=== PATIENT | female | born 1950 | race Two or more races ===

== ENCOUNTER → 2019-05-26 | Outpatient (CLI) | payer MEDICARE ==
--- NOTE | 2019-05-26 09:54 | FL ---
EXAMINATION TYPE: FL UGI air w esophagus DATE OF EXAM: 05/26/2019 COMPARISON: NONE HISTORY: Abdominal pain and gastroesophageal reflux from 1.5 months. TECHNIQUE: A double contrast esophagram and UGI study is performed. 2.02 minutes of fluoroscopy time was utilized with 55 fluoroscopic images saved. FINDINGS: The esophagus shows slightly abnormal motility with few tertiary contractions in the distal esophagus intermittently. No evidence of stricture noted. There is a small hiatal hernia noted throughout the exam but most notably on supine images. This results in moderate to severe gastroesophageal reflux. The stomach shows normal distensibility, peristalsis, and mucosal folds. No evidence of any mass or ulcer disease. No significant gastroesophageal reflux was seen during real time performance of this study. The duodenal bulb, sweep, and proximal small bowel loops are unremarkable. IMPRESSION: 1. Small hiatal hernia with moderate to severe gastroesophageal reflux. 2. Few tertiary contractions in the distal esophagus, likely on the basis of presbyesophagus.
== END | disposition home or self-care (01) ==
LOC: RADUSWWP 08:46
PROVIDERS: ATTEND Internal Medicine
DX: K44.9 Diaphragmatic hernia without obstruction or gangrene (principal); K21.9 Gastro-esophageal reflux disease without esophagitis; K22.8 Other specified diseases of esophagus
CPT/HCPCS: 74246

== ENCOUNTER → 2019-06-09 | Day surgery (SDC) | payer MEDICARE ==
[2019-06-08 10:46] VITALS: BMI 35.2
[~2019-06-09] MED LIST: LACTATED RINGERS 1,000 ML IV SCH; LIDOCAINE 1% INJ 10MG/ML (20 ML MDV) ONE; PROPOFOL 10 MG/ML 20 ML VIAL IV ONE
[2019-06-09 07:13] VITALS: TEMP 96.8
[2019-06-09 07:23] LABS: Glucose,Whole Blood 200 mg/dL (75-99)
--- NOTE | 2019-06-09 07:53 | P.GSHP ---
History of Present Illness H&P Date: 06/09/19 Chief Complaint: GERD This is a 68-year-old female with history of GERD. Patient is known to have a hiatal hernia. She presents today for EGD. Past Medical History Past Medical History: Asthma, Diabetes Mellitus, Eye Disorder, GERD/Reflux, Hyperlipidemia, Hypertension, Pneumonia, Thyroid Disorder Additional Past Medical History / Comment(s): meniere's disease, fuch's dystrophy bilateral eyes, no current RX for asthma History of Any Multi-Drug Resistant Organisms: MRSA Date of last positivie culture/infection: approx 1999 MDRO Source:: stomach Past Surgical History: Bladder Surgery, Breast Surgery, Hysterectomy, Tonsillectomy Additional Past Surgical History / Comment(s): Breast lumpectomy (pt cannot recall laterallity), colonoscopy, bladder suspension. Cataract surgery Past Anesthesia/Blood Transfusion Reactions: No Reported Reaction, Motion Sic kness Additional Past Anesthesia/Blood Transfusion Reaction / Comment(s): hx of menieres Past Psychological History: No Psychological Hx Reported Additional Psychological History / Comment(s): . Smoking Status: Never smoker Past Alcohol Use History: None Reported Past Drug Use History: None Reported - Past Family History Father Family Medical History: Diabetes Mellitus Additional Family Medical History / Comment(s): Father of diabetic complications in his early 50s. Mother Family Medical History: Cancer Additional Family Medical History / Comment(s): Mother of breast cancer at the age of 50yrs. Medications and Allergies Home Medications Medication Instructions Recorded Confirmed Type Insulin Glargine,Hum.rec.anlog 50 unit SQ QAM 04/22/19 06/09/19 History [Lantus Solostar] Insulin Lispro [humaLOG Kwikpen] 0 unit SQ TID-W/MEALS 04/22/19 06/09/19 History Lisinopril [Zestril] 10 mg PO QAM 04/22/19 06/09/19 History Simvastatin [Zocor] 40 mg PO QAM 04/22/19 06/09/19 History Aspirin 81 mg PO DAILY #30 chew 04/23/19 06/09/19 Rx Famotidine [Pepcid] 20 mg PO BID 06/08/19 06/09/19 History Levothyroxine Sodium [Synthroid] 150 mcg PO DAILY 06/08/19 06/09/19 History Meclizine [Antivert] 25 mg PO DAILY PRN 06/08/19 06/09/19 History Metoprolol Succinate (ER) [Toprol 25 mg PO QAM 06/08/19 06/09/19 History XL] Vitamin D3 10,000 unit PO DAILY 06/08/19 06/09/19 History Allergies Allergy/AdvReac Type Severity Reaction Status Date / Time No Known Allergies Allergy Verified 06/08/19 10:38 Surgical - Exam Vital Signs Temp Pulse Resp BP Pulse Ox 96.8 F L 72 14 145/68 96 06/09/19 07:12 06/09/19 07:12 06/09/19 07:12 06/09/19 07:12 06/09/19 07:12 - General well developed, well nourished, no distress - Eyes PERRL - ENT normal pinna - Neck no masses - Respiratory normal expansion - Cardiovascular Rhythm: regular - Abdomen Abdomen: soft, non tender Results - Labs Abnormal Lab Results - Last 24 Hours (Table) 06/09/19 Range/Units 07:19 POC Glucose (mg/dL) 200 H (75-99) mg/dL Assessment and Plan Assessment: GERD. We'll perform EGD.
--- NOTE | 2019-06-09 07:58 | P.OP ---
Date of Procedure: 06/09/19 Preoperative Diagnosis: GERD Postoperative Diagnosis: Antral gastritis Hiatal hernia Esophagitis Procedure(s) Performed: EGD Anesthesia: MAC Surgeon: Rd Ayon Pathology: other (Antrum, esophagus) Condition: stable Disposition: PACU Description of Procedure: The patient's placed on the endoscopy table in the lateral position. She received IV sedation. The gastroscope placed oropharynx passed in the esophagus and into the stomach. Scope was then placed through the pylorus. The first second portion of duodenum. Normal. Scope was then brought back the antrum and this appeared mildly inflamed. A biopsies performed. The scope was then retroflexed and remainder the stomach appeared normal. The GE junction was at 38 cm. The distal esophagus appeared inflamed. There was evidence of a hiatal hernia. The proximal esophagus appeared normal. Scope was withdrawn for patient.
[2019-06-09 08:06] VITALS: RESP 16
[2019-06-09 08:32] VITALS: BP 136/92; PULSE 73
== END | disposition home or self-care (01) ==
LOC: ORWHC2ENDO 06:45
PROVIDERS: ATTEND Surgery
DX: K21.0 Gastro-esophageal reflux disease with esophagitis (principal); K29.50 Unspecified chronic gastritis without bleeding; K44.9 Diaphragmatic hernia without obstruction or gangrene; I10 Essential (primary) hypertension; J45.909 Unspecified asthma, uncomplicated; E11.9 Type 2 diabetes mellitus without complications; E78.5 Hyperlipidemia, unspecified; E07.9 Disorder of thyroid, unspecified; H81.09 Meniere's disease, unspecified ear; H18.51 Endothelial corneal dystrophy; Z86.14 Personal history of Methicillin resistant Staphylococcus aureus infection; Z98.890 Other specified postprocedural states; Z87.01 Personal history of pneumonia (recurrent); Z90.89 Acquired absence of other organs; Z90.710 Acquired absence of both cervix and uterus; Z83.3 Family history of diabetes mellitus; Z80.3 Family history of malignant neoplasm of breast; Z79.4 Long term (current) use of insulin; Z79.82 Long term (current) use of aspirin; Z79.899 Other long term (current) drug therapy; Z79.890 Hormone replacement therapy
CPT/HCPCS: 88305; 43239; J2001; J2704

== ENCOUNTER → 2019-06-11 | Outpatient (CLI) | payer MEDICARE ==
--- NOTE | 2019-06-11 11:19 | NM ---
EXAMINATION TYPE: NM hepatobiliary w CCK DATE OF EXAM: 06/11/2019 COMPARISON: NONE HISTORY: Disease of gallbladder TECHNIQUE: After the intravenous administration of 5.22 mCi Tc 99m Mebrofenin hepatobiliary scintigra phy is performed. Immediate images post injection. FINDINGS: There is satisfactory initial accumulation of tracer by the liver. The gallbladder is visualized wit hin 20 minutes. The small bowel activity is noted within 10 minutes. At one hour CCK was administer ed, patient was injected with 1.64 mcg of Kinevac, and gallbladder ejection fraction is calculated at 78 %, in the normal range. Therefore there is no scintigraphic evidence of cystic or common bile du ct obstruction to suggest acute cholecystitis or gallbladder dyskinesia. IMPRESSION: Exam is within normal limits.
== END | disposition home or self-care (01) ==
LOC: RADNMMAIN 06:59
PROVIDERS: ATTEND Surgery
DX: K82.8 Other specified diseases of gallbladder (principal)
CPT/HCPCS: 78227; A9537; J2805

== ENCOUNTER 2019-06-13 08:44 | Day surgery (SDC) | payer MEDICARE ==
[2019-06-08 10:55] VITALS: BMI 35.2
[~2019-06-13 08:44] MED LIST changes: +DEXAMETHASONE SOD PHOSPHATE 10 MG/ML 1 ML VIAL IV ONE; +HEPARIN SODIUM,PORCINE 5,000 UNIT/ML 1 ML VIAL SQ ONE; -LACTATED RINGERS 1,000 ML IV SCH; +LIDOCAINE 1% 20 ML VIAL (10MG/ML) FOR IV START INTRADERMA PRN; -LIDOCAINE 1% INJ 10MG/ML (20 ML MDV) ONE; +ONDANSETRON 4 MG/2 ML VIAL IVP ONE; -PROPOFOL 10 MG/ML 20 ML VIAL IV ONE
[2019-06-13] MEDS: LACTATED RINGERS 1,000 ML IV SCH ×2 (09:35→20:54)
[2019-06-13 09:43] LABS: Glucose,Whole Blood 163 mg/dL (75-99)
--- NOTE | 2019-06-13 09:57 | P.GSHP ---
History of Present Illness H&P Date: 06/13/19 Chief Complaint: GERD This is a 68-year-old female referred from Dr. Lott. Karen patient has had long-standing problems with reflux esophagitis. The patient underwent recent EGD is found have evidence of esophagitis. Patient has been well informed on th e procedure of laparoscopic Ethan fundoplication. The patient is aware the risk of the conversion to the open procedure, risk of injury to the stomach, liver and spleen. The patient is also a risk of recurrent GERD and dysphagia symptoms. The patient understands there is a postoperative diet of full liquids for 2 weeks after surgery. Past Medical History Past Medical History: Asthma, Diabetes Mellitus, Eye Disorder, GERD/Reflux, Hyperlipidemia, Hypertension, Pneumonia, Thyroid Disorder Additional Past Medical History / Comment(s): meniere's disease, fuch's dystrophy bilateral eyes, no current RX for asthma History of Any Multi-Drug Resistant Organisms: MRSA Date of last positivie culture/infection: approx 1999 MDRO Source:: stomach Past Surgical History: Bladder Surgery, Breast Surgery, Hysterectomy, Tonsill ectomy Additional Past Surgical History / Comment(s): Breast lumpectomy (pt cannot recall laterallity), colonoscopy, bladder suspension. Cataract surgery Past Anesthesia/Blood Transfusion Reactions: No Reported Reaction, Motion Sickness Additional Past Anesthesia/Blood Transfusion Reaction / Comment(s): hx of menieres Past Psychological History: No Psychological Hx Reported Additional Psychological History / Comment(s): . Smoking Status: Never smoker Past Alcohol Use History: None Reported Past Drug Use History: None Reported - Past Family History Father Family Medical History: Diabetes Mellitus Additional Family Medical History / Comment(s): Father of diabetic complications in his early 50s. Mother Family Medical History: Cancer Additional Family Medical History / Comment(s): Mother of breast cancer at the age of 50yrs. Medications and Allergies Home Medications Medication Instructions Recorded Confirmed Type Insulin Glargine,Hum.rec.anlog 50 unit SQ QAM 04/22/19 06/09/19 History [Lantus Solostar] Insulin Lispro [humaLOG Kwikpen] 0 unit SQ TID-W/MEALS 04/22/19 06/09/19 History Lisinopril [Zestril] 10 mg PO QAM 04/22/19 06/09/19 History Simvastatin [Zocor] 40 mg PO QAM 04/22/19 06/09/19 History Aspirin 81 mg PO DAILY #30 chew 04/23/19 06/09/19 Rx Famotidine [Pepcid] 20 mg PO BID 06/08/19 06/09/19 History Levothyroxine Sodium [Synthroid] 150 mcg PO DAILY 06/08/19 06/09/19 History Meclizine [Antivert] 25 mg PO DAILY PRN 06/08/19 06/09/19 History Metoprolol Succinate (ER) [Toprol 25 mg PO QAM 06/08/19 06/09/19 History XL] Vitamin D3 10,000 unit PO DAILY 06/08/19 06/09/19 History Allergies Allergy/AdvReac Type Severity Reaction Status Date / Time No Known Allergies Allergy Verified 06/13/19 09:21 Surgical - Exam Vital Signs Temp Pulse Resp BP Pulse Ox 97.7 F 69 16 149/70 99 06/13/19 09:26 06/13/19 09:26 06/13/19 09:26 06/13/19 09:26 06/13/19 09:26 - General well developed, well nourished, no distress - Eyes PERRL - ENT normal pinna - Neck no masses - Respiratory normal expansion - Cardiovascular Rhythm: regular - Abdomen Abdomen: soft, non tender Results - Labs Abnormal Lab Results - Last 24 Hours (Table) 06/13/19 Range/Units 09:28 POC Glucose (mg/dL) 163 H (75-99) mg/dL Assessment and Plan Assessment: GERD. We'll perform laparoscopic Ethan fundal plication.
[2019-06-13] MEDS ORDERED: FAMOTIDINE 20 MG/2 ML VIAL IV ONE (09:59)
[2019-06-13] MEDS ORDERED: fentaNYL (PF) 50 MCG/ML 2 ML AMP ONE (10:18)
[2019-06-13] MEDS ORDERED: KETOROLAC 30 MG/ML 1 ML VIAL ONE (10:18)
[2019-06-13] MEDS ORDERED: NEOSTIGMINE 1 MG/ML 10 ML VIAL ONE (10:18)
[2019-06-13] MEDS ORDERED: ROCURONIUM BROMIDE 10 MG/ML 10 ML VIAL IV ONE (10:18)
[2019-06-13] MEDS ORDERED: PROPOFOL 10 MG/ML 20 ML VIAL IV ONE (10:18)
[2019-06-13] MEDS ORDERED: LIDOCAINE 1% INJ 10MG/ML (20 ML MDV) ONE (10:18)
[2019-06-13] MEDS ORDERED: SUCCINYLCHOLINE CHLORIDE 100 MG/5 ML SYR IV ONE (10:18)
[2019-06-13] MEDS ORDERED: MIDAZOLAM 2 MG/2 ML VIAL ONE (10:18)
[2019-06-13] MEDS ORDERED: GLYCOPYRROLATE 0.2 MG/ML 2 ML VIAL ONE (10:18)
[2019-06-13] MEDS ORDERED: BUPIVACAINE (PF) 0.25% 30 ML VIAL SQ ONE (10:51)
[2019-06-13] MEDS ORDERED: LACTATED RINGERS 1,000 ML IV ONE (11:15)
--- NOTE | 2019-06-13 11:26 | P.OP ---
Date of Procedure: 06/13/19 Preoperative Diagnosis: GERD Postoperative Diagnosis: GERD Procedure(s) Performed: Laparoscopic Ethan fundoplication Anesthesia: LAURA Surgeon: Rd Ayon Estimated Blood Loss (ml): 5 Pathology: none sent Condition: stable Disposition: PACU Description of Procedure: The patient was placed on the operating table in the supine position. The patient received general anesthesia. And was placed in dorsal lithotomy position. The patient was prepped and draped in the usual sterile fashion. The skin incision sites were anesthetized with 1% local Xylocaine. The skin was incised in the left periumbilical area and then using a blade less 5 mm trocar under direct visualization panel cavity was entered. After adequate insufflation the laparoscope was then placed into the peritoneal cavity. Next a 5 mm trochars placed in the right epigastric position. Another 5 millimeter trocar the right lateral position. Another 5 millimeter trocar in the left lateral position a 5 mm trocar is placed in the left epigastric position. And then the initial 5 mm trocar was exchanged for a 10 mm trocar. The left lateral lobe liver was retracted. The hernia was seen. The crural defect was then dissected using the Harmonic scissors device. A 360 crural dissection was per formed the esophagus stomach was reduced back into the peritoneal Cavity. The crural defect was then closed using 2-0 Ethibond suture. Next the fundus of the stomach was mobilized using the Baltic scissors device. and then a 58-Samoan bougie dilator was placed oropharynx passed into the esophagus and stomach the fundal plication wrap was then performed by grasping the fundus posteriorly and bringing it around the esophagus and stomach fundoplication was then performed using 2-0 Ethibond suture. Care was taken that the fundal location rested over top of the intra-abdominal esophagus. There was no injury seen to the stomach or esophagus. The dilator was then withdrawn. The abdomen was irrigated there is no bleeding seen. The trochars were then withdrawn and then skin incision sites were closed using 3-0 Monocryl suture Steri-Strips are applied. Patient thought procedure well and sent to recovery room in stable condition.
[2019-06-13] MEDS ORDERED: HYDROmorphone 1 MG/ML 1 ML SYRINGE IVP PRN (11:27)
[2019-06-13] MEDS ORDERED: ONDANSETRON 4 MG/2 ML VIAL IVP PRN (11:27)
[2019-06-13 11:50] LABS: Glucose,Whole Blood 230 mg/dL (75-99)
[2019-06-13] MEDS ORDERED: D5-0.45% NACL WITH KCL 20MEQ/L 1,000 ML IV SCH (12:00)
[2019-06-13] MEDS ORDERED: ONDANSETRON 4 MG/2 ML VIAL IVP ONE (12:00)
[2019-06-13] MEDS: HYDROmorphone 0.5 MG/0.5 ML SYRINGE IVP PRN ×2 (12:03→12:22)
[2019-06-13] MEDS ORDERED: INSULIN ASPART (NovoLOG) 100 UNIT/ML VIAL SQ ONE (12:05)
[2019-06-13] MEDS: METOCLOPRAMIDE 5 MG/ML 2 ML VIAL IVP SCH ×2 (14:02→17:50)
--- NOTE | 2019-06-13 15:20 | P.CONS ---
History of Present Illness - Reason for Consult Consult date: 06/13/19 - History of Present Illness The patient is a 68-year-old female with a PMH of type 2 diabetes mellitus, hypertension, hyperlipidemia, hypothyroidism, persistent GERD who was seen as a consult postoperatively after a Ethan fundoplication. The patient reported only mild incisional abdominal pain. She also endorsed having a sore throat though denied cough, fever, chills, nausea, vomiting, chest pain, or SOB. The patient reports compliance with her meds at home including her insulin. Review of Systems Pertinent positives and negatives as discussed in HPI, a complete review of systems was performed and all other systems are negative. Past Medical History Past Medical History: Asthma, Diabetes Mellitus, Eye Disorder, GERD/Reflux, Hyperlipidemia, Hypertension, Pneumonia, Thyroid Disorder Additional Past Medical History / Comment(s): meniere's disease, fuch's dystrophy bilateral eyes, no current RX for asthma History of Any Multi-Drug Resistant Organisms: MRSA Year Discovered:: approx 1999 MDRO Source:: stomach Past Surgical History: Bladder Surgery, Breast Surgery, Hysterectomy, Tonsillectomy Additional Past Surgical History / Comment(s): Breast lumpectomy (pt cannot recall laterallity), colonoscopy, bladder suspension. Cataract surgery Past Anesthesia/Blood Transfusion Reactions: No Reported Reaction, Motion Sickness Additional Past Anesthesia/Blood Transfusion Reaction / Comm: hx of menieres Past Psychological History: No Psychological Hx Reported Additional Psychological History / Comment(s): . Smoking Status: Never smoker Past Alcohol Use History: None Reported Past Drug Use History: None Reported - Past Family History Father Family Medical History: Diabetes Mellitus Additional Family Medical History / Comment(s): Father of diabetic complications in his early 50s. Mother Family Medical History: Cancer Additional Family Medical History / Comment(s): Mother of breast cancer at the age of 50yrs. Medications and Allergies Home Medications Medication Instructions Recorded Confirmed Type Insulin Glargine,Hum.rec.anlog 50 unit SQ QAM 04/22/19 06/09/19 History [Lantus Solostar] Insulin Lispro [humaLOG Kwikpen] 0 unit SQ TID-W/MEALS 04/22/19 06/09/19 History Lisinopril [Zestril] 10 mg PO QAM 04/22/19 06/09/19 History Simvastatin [Zocor] 40 mg PO QAM 04/22/19 06/09/19 History Aspirin 81 mg PO DAILY #30 chew 04/23/19 06/09/19 Rx Famotidine [Pepcid] 20 mg PO BID 06/08/19 06/09/19 History Levothyroxine Sodium [Synthroid] 150 mcg PO DAILY 06/08/19 06/09/19 History Meclizine [Antivert] 25 mg PO DAILY PRN 06/08/19 06/09/19 History Metoprolol Succinate (ER) [Toprol 25 mg PO QAM 06/08/19 06/09/19 History XL] Vitamin D3 10,000 unit PO DAILY 06/08/19 06/09/19 History Allergies Allergy/AdvReac Type Severity Reaction Status Date / Time No Known Allergies Allergy Verified 06/13/19 09:21 Physical Exam Vitals: Vital Signs Temp Pulse Pulse Pulse Pulse Resp BP 06/13/19 14:49 06/13/19 14:35 06/13/19 14:20 06/13/19 14:05 06/13/19 13:49 06/13/19 13:34 06/13/19 13:19 06/13/19 13:04 06/13/19 12:48 97.8 F 77 16 06/13/19 12:25 60 16 06/13/19 12:10 58 L 18 06/13/19 11:55 56 L 16 06/13/19 11:40 51 L 16 06/13/19 11:28 97.1 F L 59 L 16 06/13/19 09:26 97.7 F 69 16 149/70 BP BP Pulse Ox 06/13/19 14:49 100/65 97 06/13/19 14:35 102/62 97 06/13/19 14:20 95/59 99 06/13/19 14:05 91/57 99 06/13/19 13:49 94/60 97 06/13/19 13:34 97/61 96 06/13/19 13:19 94/64 96 06/13/19 13:04 91/55 96 06/13/19 12:48 132/79 92 L 06/13/19 12:25 141/64 92 L 06/13/19 12:10 141/64 94 L 06/13/19 11:55 142/65 95 06/13/19 11:40 138/62 100 06/13/19 11:28 144/66 06/13/19 09:26 99 Intake and Output 06/13/19 06/13/19 06/13/19 06:59 14:59 22:59 Intake Total 1200 Output Total 5 Balance 1195 Intake: IV 1200 Output: Estimated Blood Loss 5 Other: Weight 84.7 kg General: non toxic, no distress, appears at stated age, obese Derm: Post-surgical abdomen, no unusual rashes/lesions no unusual ecchymoses, warm, dry Head: atraumatic, normocephalic, symmetric Eyes: EOMI, no lid lag, anicteric sclera, pupils equal round reactive to light ENT: Nose and ears atraumatic, no thrush, no pharyngeal erythema Neck: No thyromegaly, no cervical lymphadenopathy, trachea midline, supple Mouth: no lip lesion, mucus membranes moist Cardiovascular: S1S2 reg, no murmur, positive posterior tibial pulse bilateral, no edema, capillary refill less than 2 seconds Lungs: CTA bilateral, no rhonchi, no rales , no accessory muscle use Abdominal: soft, post-surgical small laproscopic incisions with overlying tape, no guarding, no appreciable organomegaly, hypoactive bowel sounds Ext: no gross muscle atrophy, muscle strength 4 out of 5 in all 4 extremities grossly, no contractures, Neuro: CN II-XI grossly intact, light touch intact all 4 extremities, finger to nose within normal limits, Psych: Alert, oriented, appropriate affect Results Labs: Abnormal Lab Results - Last 24 Hours (Table) 06/13/19 06/13/19 Range/Units 09:28 11:47 POC Glucose (mg/dL) 163 H 230 H (75-99) mg/dL Assessment and Plan Plan: Persistent GERD s/p laproscopic Ethan Fundoplication -Management including pain control as per surgery Type 2 DM -Patient takes 50 U of Lantus qam at home -Will resume 40 U qam for now -MASOUD with FS HTN, HLD -C/w home meds Hypothyroidism -C/w home dose Levothyroxine DVT proph -As per surgery
[2019-06-13 17:04] LABS: Glucose,Whole Blood 229 mg/dL (75-99)
[2019-06-13] MEDS: INSULIN ASPART (NovoLOG) 100 UNIT/ML VIAL SQ SCH (17:49)
[2019-06-13 20:22] LABS: Glucose,Whole Blood 328 mg/dL (75-99)
[2019-06-14] MEDS: METOCLOPRAMIDE 5 MG/ML 2 ML VIAL IVP SCH ×3 (01:03→11:58)
[2019-06-14 01:40] VITALS: PULSE 79
[2019-06-14] MEDS: LACTATED RINGERS 1,000 ML IV SCH ×3 (02:03→05:46)
[2019-06-14] MEDS ORDERED: LEVOTHYROXINE 75 MCG TAB PO SCH (06:30)
[2019-06-14] MEDS ORDERED: INSULIN DETEMIR (LEVEMIR) 100 UNIT/ML SYR SQ SCH (07:00)
[2019-06-14 07:04] LABS: Glucose,Whole Blood 216 mg/dL (75-99)
[2019-06-14 07:56] VITALS: BP 122/68; RESP 18; TEMP 98.4
[2019-06-14] MEDS: INSULIN ASPART (NovoLOG) 100 UNIT/ML VIAL SQ SCH ×2 (07:57→12:06)
[2019-06-14] MEDS ORDERED: LISINOPRIL 10 MG TAB PO SCH (09:00)
[2019-06-14] MEDS ORDERED: ENOXAPARIN 40 MG/0.4 ML SYRINGE SQ SCH (09:00)
[2019-06-14] MEDS ORDERED: ATORVASTATIN 20 MG TAB PO SCH (09:00)
[2019-06-14] MEDS ORDERED: ASPIRIN 81 MG PO SCH (09:00)
[2019-06-14] MEDS ORDERED: METOPROLOL SUCCINATE (ER) 25 MG TAB.ER.24H PO SCH (09:00)
--- NOTE | 2019-06-14 10:22 | P.PN ---
Subjective Progress Note Date: 06/14/19 The patient was seen and examined at the bedside on 06/14. She noted feeling well and denied any active complaints. Noted a mild sore throat. Denied abdominal pain, nausea, vomiting, fever, chills, chest pain, shortness of breath. Objective - Vital Signs Vital signs: Vital Signs Temp 98.4 F 06/14/19 07:00 Pulse 79 06/14/19 07:00 Resp 18 06/14/19 07:00 BP 122/68 06/14/19 07:00 Pulse Ox 93 L 06/14/19 07:00 Intake & Output 06/13/19 06/14/19 06/14/19 18:59 06:59 18:59 Intake Total 1400 200 Output Total 5 Balance 1395 200 Weight 84.7 kg Intake: IV 1200 Oral 200 200 Output: Estimated Blood Loss 5 Other: # Voids 1 - Exam General: Non-toxic, in no acute distress, appears stated age, obese HEENT: NC/AT, anicteric sclerae, moist conjunctiva, no lid-lag, PERRLA Cardiovascular: S1/S2 wnl, no murmurs, rubs, or gallops Lungs: Clear to auscultation, normal respiratory effort, no accessory muscle use Abdominal: Soft, postsurgical with Her scopic incisions, clean and dry, non- distended, no guarding, rebound, or rigidity Skin: Warm, dry Extremities: No edema or contractures Psychiatric: Alert and oriented to person, place and time, appropriate affect Neuro: CN II-XII grossly intact, Strength 5/5 in all 4 extremities, Speech intact, Sensation to light touch grossly intact throughout - Labs Labs: Abnormal Lab Results - Last 24 Hours (Table) 06/13/19 06/13/19 06/13/19 Range/Units 11:47 16:52 20:10 POC Glucose (mg/dL) 230 H 229 H 328 H (75-99) mg/dL 06/14/19 Range/Units 06:53 POC Glucose (mg/dL) 216 H (75-99) mg/dL Assessment and Plan Plan: Persistent GERD s/p laproscopic Ethan Fundoplication -Management including pain control as per surgery Type 2 DM -C/w Levemir 40 U qam with MASOUD and FS HTN, HLD -C/w home meds Hypothyroidism -C/w home dose Levothyroxine DVT proph -As per surgery
--- NOTE | 2019-06-14 11:08 | FL ---
EXAMINATION TYPE: FL esophagus cervic/pharynx DATE OF EXAM: 06/14/2019 LIMITED UGI-ESOPHAGRAM: CLINICAL HISTORY: Status post Barrera fundoplication surgery yesterday for hernia and pain, long time reflux-like symptoms. TECHNIQUE: Limited esophagram is performed utilizing 20 oz of Isovue-370. A total of 15 seconds of f luoroscopic time was utilized during procedure. 26 spot images saved to PACS. Comparison: Prior upper GI study May 26, 2019. FINDINGS: The patient swallowed contrast without difficulty or delay. Esophageal peristalsis and mo tility are within normal limits. There is good flow of contrast along the diaphragmatic hiatus into t he stomach, there is no evidence of contrast extravasation to suggest leak. Surgical sutures epigastr ic region are now present. No persistent hiatal hernia is seen. Patient remains asymptomatic. Small a mount of free air under right hemidiaphragm is presumed postoperative. IMPRESSION: No evidence of leak or significant obstruction status post Barrera fundoplication surgery yesterday.
[2019-06-14 11:44] LABS: Glucose,Whole Blood 171 mg/dL (75-99)
--- NOTE | 2019-06-14 12:10 | P.DS ---
Providers Date of admission: 06/13/2019 Expected date of discharge: 06/14/19 Attending physician: Rd Ayon Consults: 06/13/19 11:30 Consult Physician Routine Consulting Provider: Ana Vasquez Consult Reason/Comments: Management Do you want consulting provider notified?: Yes Primary care physician: [facility] Course: This is a 68-year-old female who underwent laparoscopic Ethan fundal plication yesterday. Patient did well postoperatively. Please see hospital chart for details. Procedures: Laparoscopic Ethan fundal plication Patient Condition at Discharge: Good Plan - Discharge Summary Discharge Rx Participant: Yes New Discharge Prescriptions: No Action Simvastatin [Zocor] 40 mg PO QAM Lisinopril [Zestril] 10 mg PO QAM Insulin Glargine,Hum.rec.anlog [Lantus Solostar] 50 unit SQ QAM Insulin Lispro [humaLOG Kwikpen] 0 unit SQ TID-W/MEALS Aspirin 81 mg PO DAILY #30 chew Levothyroxine Sodium [Synthroid] 150 mcg PO DAILY Metoprolol Succinate (ER) [Toprol XL] 25 mg PO QAM Meclizine [Antivert] 25 mg PO DAILY PRN PRN Reason: Vertigo Famotidine [Pepcid] 20 mg PO BID Vitamin D3 10,000 unit PO DAILY Discharge Medication List Insulin Glargine,Hum.rec.anlog [Lantus Solostar] 50 unit SQ QAM 04/22/19 [History] Insulin Lispro [humaLOG Kwikpen] 0 unit SQ TID-W/MEALS 04/22/19 [History] Lisinopril [Zestril] 10 mg PO QAM 04/22/19 [History] Simvastatin [Zocor] 40 mg PO QAM 04/22/19 [History] Aspirin 81 mg PO DAILY #30 chew 04/23/19 [Rx] Famotidine [Pepcid] 20 mg PO BID 06/08/19 [History] Levothyroxine Sodium [Synthroid] 150 mcg PO DAILY 06/08/19 [History] Meclizine [Antivert] 25 mg PO DAILY PRN 06/08/19 [History] Metoprolol Succinate (ER) [Toprol XL] 25 mg PO QAM 06/08/19 [History] Vitamin D3 10,000 unit PO DAILY 06/08/19 [History] Follow up Appointment(s)/Referral(s): Rd Ayon MD [STAFF PHYSICIAN] - 06/28/19 1:15 pm Patient Instructions/Handouts: *Surgery [facility] - ([facility]) Lap Ethan Fundiplication Post-Op Instructions, Fundoplication in Adults (DC) Activity/Diet/Wound Care/Special Instructions: Full liquid diet for 2 weeks, slippery foods only
== END 2019-06-14 12:45 | disposition home or self-care (01) ==
LOC: OR 08:44 → 4SSUR 11:28 → OR 06-14 12:45
PROVIDERS: ATTEND Surgery
DX: K21.0 Gastro-esophageal reflux disease with esophagitis (principal); K44.9 Diaphragmatic hernia without obstruction or gangrene; J45.909 Unspecified asthma, uncomplicated; E11.9 Type 2 diabetes mellitus without complications; H18.51 Endothelial corneal dystrophy; E78.5 Hyperlipidemia, unspecified; I10 Essential (primary) hypertension; E03.9 Hypothyroidism, unspecified; H81.09 Meniere's disease, unspecified ear; Z86.14 Personal history of Methicillin resistant Staphylococcus aureus infection; Z87.01 Personal history of pneumonia (recurrent); Z83.3 Family history of diabetes mellitus; Z80.3 Family history of malignant neoplasm of breast; Z90.710 Acquired absence of both cervix and uterus; Z98.49 Cataract extraction status, unspecified eye; Z79.82 Long term (current) use of aspirin; Z79.3 Long term (current) use of hormonal contraceptives; Z79.4 Long term (current) use of insulin; Z79.899 Other long term (current) drug therapy
CPT/HCPCS: 74210; 43281; J2250; J1644; J1100; J2710; J2765 ×2; J0690; J2405; J2001; J1650; J3010; J1885; J0330; J2704; J1170; Q9967

== ENCOUNTER → 2019-07-28 | Outpatient (CLI) | payer MEDICARE ==
--- NOTE | 2019-07-28 11:03 | CT ---
EXAMINATION TYPE: CT abdomen pelvis wo con DATE OF EXAM: 07/28/2019 COMPARISON: None HISTORY: 68-year-old female pain with urination and vaginal bleeding CT DLP: 812.4 mGycm. Automated exposure control for dose reduction was used. TECHNIQUE: Contiguous axial scanning of the abdomen and pelvis without IV contrast. Coronal and sagit alex reconstructions performed. FINDINGS: Heart normal size without pericardial effusion. Lung bases clear without pleural effusion. Postsurgical changes appear to represent Ethan fundoplication. There is a 2.4 cm fluid collection adjacent to the fundoplication, axial image 17. Liver borderline enlarged at 17.5 cm. Not noncontrast appearance of the liver, adrenal glands, right kidney, spleen otherwise show no gross abnormal abnormality. 8 mm gallstone. No abnormal gallbladder distention. Centrally located multiple cystic areas in the left kidney measuring up to 3.4 cm. Findings suggest m ultiple parapelvic cysts. The ureter itself is not dilated. Tiny calcification within the spleen suggesting prior granulomatous disease. No dilated small bowel, free fluid, or free air. Some surgical material in the right lower quadrant may relate to prior appendectomy and can be correl ated clinically. Mild overall stool burden. No pericolonic inflammatory change. Multiple pelvic phleboliths. Bladder is nondistended. Uterus surgically absent. No abnormal mass identified in the pelvis on this noncontrast study or pelvic lymphadenopathy. Suspect visualization of a small right ovary. Some bulgi ng laxity of the levator ani musculature. Bones: Mild degenerative changes of the hips and SI joints. Facet arthropathy lower lumbar spine. Tra ce grade 1 anterolisthesis at L2/L3. IMPRESSION: 1. Status post hysterectomy. No suspicious mass identified in the pelvis by noncontrast technique. 2. Status post Ethan fundoplication with an associated 2.4 cm fluid collection. This could represent fluid trapped within the wrap itself or a nonspecific postoperative fluid collection such as seroma. Clinically correlate. 3. 8 mm gallstone, prominent left-sided parapelvic cysts. 4. Mild pelvic floor relaxation.
== END | disposition home or self-care (01) ==
LOC: RADCTMAIN 09:56
PROVIDERS: ATTEND Nurse Practitioner Adult Health
DX: K80.20 Calculus of gallbladder without cholecystitis without obstruction (principal); N81.89 Other female genital prolapse; R31.9 Hematuria, unspecified; Z90.710 Acquired absence of both cervix and uterus; Z98.890 Other specified postprocedural states
CPT/HCPCS: 36415; 74176

== ENCOUNTER → 2020-10-24 | Outpatient (CLI) | payer MEDICARE ==
[2020-10-24 14:38] LABS: African American GFR (CKD) >90 (>60 ml/min/1.73 sqM); Blood Urea Nitrogen 13 mg/dL (7-17); Non-African American GFR(CKD) >90 (>60 ml/min/1.73 sqM)
--- NOTE | 2020-10-24 15:33 | CT ---
EXAMINATION TYPE: CT soft tissue neck w con DATE OF EXAM: 10/24/2020 3:07 PM COMPARISON: None HISTORY: Left sided discomfort without palpable lump. CT DLP: 647.9 mGycm Automated exposure control for dose reduction was used. CONTRAST: CT scan of the neck is performed following with IV Contrast, patient injected with 100 mL of Isovue 3 00. Axial images are obtained, coronal and sagittal reformatted images are reviewed. FINDINGS: Dental artifact limits assessment. There are changes of chronic sinusitis. Orbits are symme tric. Intracranial structures are symmetric. Base of the tongue is symmetric. Oropharynx symmetric. V ocal cords have a normal appearance. Submandibular glands and parotid glands have a normal appearance. No pathologic adenopathy. Hypertrop hic and degenerative changes of the spine. Atherosclerotic change of the vasculature including the ca rotid arteries noted. Suspect to 60% stenosis of the left ICA. IMPRESSION: 1. No acute process. 2. Suspect a 60% stenosis of the left internal carotid artery
== END | disposition home or self-care (01) ==
LOC: RADCTMAIN 13:48
PROVIDERS: ATTEND Otolaryngology
DX: M54.2 Cervicalgia (principal)
CPT/HCPCS: 82565; 84520; 70491; 36415; Q9967

== ENCOUNTER 2020-12-05 07:12 | Day surgery (SDC) | payer MEDICARE ==
[2020-12-04 11:50] VITALS: BMI 36.1
[~2020-12-05 07:12] MED LIST changes: -DEXAMETHASONE SOD PHOSPHATE 10 MG/ML 1 ML VIAL IV ONE; +DEXAMETHASONE SOD PHOSPHATE 4 MG/ML 1 ML VIAL IV ONE; +DEXAMETHASONE SOD PHOSPHATE 4 MG/ML 1 ML VIAL IV PRN; +FAMOTIDINE 20 MG/2 ML VIAL IV PRN; -HEPARIN SODIUM,PORCINE 5,000 UNIT/ML 1 ML VIAL SQ ONE; +HYDROmorphone 0.5 MG/0.5 ML SYRINGE IVP PRN; +LACTATED RINGERS 1,000 ML IV SCH; +LIDOCAINE 1% (10MG/ML) FOR IV START INTRADERMA PRN; -LIDOCAINE 1% 20 ML VIAL (10MG/ML) FOR IV START INTRADERMA PRN; +MIDAZOLAM 2 MG/2 ML VIAL IV PRN; +ONDANSETRON 4 MG/2 ML VIAL IVP PRN
[2020-12-05 07:53] LABS: Glucose,Whole Blood 144 mg/dL (75-99)
[2020-12-05] MEDS ORDERED: PROPOFOL 10 MG/ML 20 ML VIAL IV ONE (08:39)
[2020-12-05] MEDS ORDERED: GLYCOPYRROLATE 0.2 MG/ML 2 ML VIAL ONE (08:39)
[2020-12-05] MEDS ORDERED: DEXAMETHASONE SOD PHOSPHATE 10 MG/ML 1 ML VIAL ONE (08:39)
[2020-12-05] MEDS ORDERED: fentaNYL (PF) 50 MCG/ML 2 ML AMP ONE (08:39)
[2020-12-05] MEDS ORDERED: SUCCINYLCHOLINE CHLORIDE 100 MG/5 ML SYR IV ONE (08:39)
[2020-12-05] MEDS ORDERED: LIDOCAINE 2% SYG (PF) 100 MG/5 ML ONE (08:39)
[2020-12-05] MEDS ORDERED: MIDAZOLAM 2 MG/2 ML VIAL ONE (08:39)
--- NOTE | 2020-12-05 09:20 | P.OP ---
Date of Procedure: 12/05/20 Preoperative Diagnosis: Chronic left-sided sore throat Postoperative Diagnosis: Same Procedure(s) Performed: Direct microlaryngoscopy Anesthesia: LAURA Surgeon: Gabe Root Estimated Blood Loss (ml): 0 Pathology: none sent Condition: stable Disposition: PACU Indications for Procedure: This 70-year-old white female whose had a chronic although intermittent left- sided sore throat. She points to the left side of the hypopharynx or larynx. She has no dysphagia. Today she is actually asymptomatic. She's had flexible laryngoscopy. Computed tomography scan of the neck which did not reveal any particular abnormalities Operative Findings: No abnormal masses or lesions noted within the oropharynx hypopharynx or larynx Description of Procedure: The patient was brought in the operative suite and placed in a supine position. Patient underwent induction of general anesthesia with oral endotracheal intubation without difficulty. The patient was prepped and draped in usual aseptic fashion. The tooth guard was placed and direct laryngoscopy was performed with systematic evaluation of the base of tongue vallecula both piriform sinuses post cricoid area and endolarynx. With the laryngoscope in suspension the microscope was brought into position to evaluate the larynx as well as the left hypopharynx specifically with no specific abnormalities noted. Therefore no biopsies were taken. The laryngoscope and tooth guard removed. The patient was allowed to emerge from general anesthesia having tolerated procedure well was extubated in the operating suite and transferred to the postop recovery area in satisfactory condition.
[2020-12-05 09:32] VITALS: TEMP 97
[2020-12-05 10:55] VITALS: BP 118/67
[2020-12-05 11:04] VITALS: PULSE 67; RESP 20
== END 2020-12-05 11:19 | disposition home or self-care (01) ==
LOC: OR 07:12
PROVIDERS: ATTEND Otolaryngology
DX: J02.9 Acute pharyngitis, unspecified (principal); Z91.040 Latex allergy status; Z79.899 Other long term (current) drug therapy; E11.9 Type 2 diabetes mellitus without complications; E07.9 Disorder of thyroid, unspecified; E78.5 Hyperlipidemia, unspecified; I10 Essential (primary) hypertension; Z79.4 Long term (current) use of insulin
CPT/HCPCS: 31525; J2250; J1100 ×2; J2405; J0690; J2001; J3010; J0330; J2704

== ENCOUNTER → 2022-05-09 | Outpatient (CLI) | payer MEDICARE ==
[2022-05-09 11:55] VITALS: BP 152/80; PULSE 85; RESP 16; TEMP 98.3
--- NOTE | 2022-05-09 12:44 | P.GSHP ---
History of Present Illness H&P Date: 05/09/22 Chief Complaint: abnormal right breast ultrasound Radha is a 71 year old white female seen in consultation for Dr. Mao regarding a radiographic abnormality in the right breast. She had a bilateral mammogram on 04-11-22 which led to a right breast ultrasound on 04-14-22. This revealed a 6 by 5 cm probable debris filled cyst. It was BIRAD 3 and repeat right breast mammogram and ultrasound in 6 months was recommended. She did not feel anything of concern prior to the mammogram. She has had a right breast needle biopsy in the past which was benign. She also had a left breast open biopsy which was benign. She is not complaining of any nipple discharge or skin changes. She has not had any recent trauma or infection in the breast. She does complain of a rash on the lateral aspect of her right breast after the mammogram. She was told this was probably shingles. CC: caffiene: 1 cup/day nicotine: none chocolate: weekly BCP: in her 20's for 1 years Family History: mother: of breast cancer at 50 dx. in 40's Hormonal History: menarche: 15 breast fed: no, first born at 22 menopause: hysterectomy in 40's took one ovary hormones: none Surgical history: left breast biopsy benign hiatal hernia tonsillectomy hysterectomy took one ovary for bleeding, done in her 40's heart cath bladder suspenscion Medical history: meniers disease HTN beta ismael for her heart daibetic high cholesterol Social History: nicotine: none alcohol: none drugs: none - Constitutional Constitutional: Reports sweats - EENT Eyes: denies blurred vision, denies pain Ears: bilateral: decreased hearing, deny: tinnitus Ears, nose, mouth and throat: Denies headache, Denies sore throat - Breasts Breasts: bilateral: as per HPI - Cardiovascular Cardiovascular: Reports as per HPI - Respiratory Respiratory: Denies cough, Denies 7 - Gastrointestinal Comment: IBS ? Gastrointestinal: Reports as per HPI - Genitourinary (Female) Genitourinary: Denies dysuria, Denies hematuria - Menstruation Menstruation: Reports post hysterectomy - Musculoskeletal Musculoskeletal: Reports myalgias - Integumentary Integumentary: Denies pruritus, Denies rash - Neurological Neurological: Denies numbness, Denies weakness - Psychiatric Psychiatric: Denies anxiety, Denies depression - Endocrine Comment: diabetic Endocrine: Reports fatigue - Hematologic/Lymphatic Comment: takes baby aspirin Hematologic/Lymphatic: Reports as per HPI - Allergic/Immunologic Allergic/Immunologic: Reports seasonal allergies Past Medical History Past Medical History: Asthma, Diabetes Mellitus, Eye Disorder, GERD/Reflux, Hyperlipidemia, Hypertension, Pneumonia, Thyroid Disorder Additional Past Medical History / Comment(s): meniere's disease, fuch's dystrophy bilateral eyes, no current RX for asthma, INSULIN DEPENDENT, History of Any Multi-Drug Resistant Organisms: MRSA Date of last positivie culture/infection: approx 1999 MDRO Source:: stomach/ABDOMEN Past Surgical History: Bladder Surgery, Breast Surgery, Heart Catheterization, Hysterectomy, Tonsillectomy Additional Past Surgical History / Comment(s): Breast BIOPSY - RIGHT , colonoscopy, bladder suspension. Cataract surgery, HIATAL HERNIA REPAIR Past Anesthesia/Blood Transfusion Reactions: No Reported Reaction, Motion Sickness Additional Past Anesthesia/Blood Transfusion Reaction / Comment(s): hx of menieres,VERTIGO Past Psychological History: No Psychological Hx Reported Additional Psychological History / Comment(s): . Smoking Status: Never smoker Past Alcohol Use History: None Reported Past Drug Use History: None Reported - Past Family History Father Family Medical History: Diabetes Mellitus Additional Family Medical History / Comment(s): Father of diabetic complications in his early 50s. Mother Family Medical History: Cancer Additional Family Medical History / Comment(s): Mother of breast cancer at the age of 50yrs. Medications and Allergies Home Medications Medication Instructions Recorded Confirmed Type Insulin Glargine,Hum.rec.anlog 55 unit SQ QAM 04/22/19 05/09/22 History [Lantus Solostar Pen] Insulin Lispro [humaLOG Kwikpen] 0 unit SQ TID-W/MEALS 04/22/19 05/09/22 History lisinopriL [Zestril] 10 mg PO QAM 04/22/19 05/09/22 History Aspirin 81 mg PO DAILY #30 chew 04/23/19 05/09/22 Rx Levothyroxine Sodium [Synthroid] 150 mcg PO DAILY 06/08/19 05/09/22 History Meclizine [Antivert] 25 mg PO DAILY PRN 06/08/19 05/09/22 History Metoprolol Succinate (ER) [Toprol 25 mg PO QAM 06/08/19 05/09/22 History XL] Acetaminophen Tab [Tylenol] 650 mg PO Q6H PRN 12/04/20 05/09/22 History Atorvastatin [Lipitor] 80 mg PO DAILY 12/04/20 05/09/22 History Cholecalciferol [Vitamin D3 (25 50 mcg PO DAILY 12/04/20 05/09/22 History Mcg = 1000 Iu)] Dulaglutide [Trulicity] 3 mg SQ KILLIAN 05/09/22 05/09/22 History Allergies Allergy/AdvReac Type Severity Reaction Status Date / Time No Known Allergies Allergy Verified 05/09/22 11:49 Surgical - Exam Vital Signs Temp Pulse Resp BP Pulse Ox 98.3 F 85 16 152/80 98 05/09/22 11:53 05/09/22 11:53 05/09/22 11:53 05/09/22 11:53 05/09/22 11:53 - General no distress - Eyes normal ocular movement - ENT bilateral hearing aids - Neck trachea midline - Respiratory normal respiratory effort, clear to auscultation - Cardiovascular Heart Sounds: normal: S1, S2 - Abdomen Abdomen: soft, non tender, no guarding, no rigid, no rebound - Integumentary normal turgor - Neurologic no disoriented, no combative - Musculoskeletal normal gait, normal posture - Psychiatric oriented to time, oriented to person, oriented to place, speech is normal, memory intact Breast Exam: BRA: 36D inspection: Bilateral grade 2/3 ptosis, probable healing shingles lateral aspect of right breast Palpation: Right breast: Multiple positional exam fibrocystic changes no dominant masses or nodules of concern, particular tension at the 8 o'clock position of the right breast 8 cm from the nipple and not able to palpate anything of concern Right axilla: No adenopathy of concern Left breast: Multiple positional exam fibrocystic changes no dominant masses or nodules of concern Left axilla: No adenopathy of concern Results Mammogram and ultrasound reviewed with Dr. Dubose Assessment and Plan Assessment: Impression: Fibrocystic breast changes bilateral Radiographic abnormality right breast 8 o'clock position most likely debris- filled cyst Probable healing shingles rash right breast lateral aspect Family history breast cancer Plan: Repeat right breast mammogram and ultrasound in 6 months At this time there is nothing which would warrant interventional biopsy Patient will call if she notes anything sooner Cc: Dr. Mao
== END ==
LOC: WWCWWP 11:36
PROVIDERS: ATTEND Surgery
DX: N60.11 Diffuse cystic mastopathy of right breast (principal); N60.12 Diffuse cystic mastopathy of left breast; Z80.3 Family history of malignant neoplasm of breast; K21.9 Gastro-esophageal reflux disease without esophagitis; E78.5 Hyperlipidemia, unspecified; I10 Essential (primary) hypertension; J45.909 Unspecified asthma, uncomplicated; E11.9 Type 2 diabetes mellitus without complications; Z79.899 Other long term (current) drug therapy; Z79.4 Long term (current) use of insulin; Z79.890 Hormone replacement therapy; Z79.85 Long-term (current) use of injectable non-insulin antidiabetic drugs

== ENCOUNTER → 2022-12-23 | Day surgery (SDC) | payer MEDICARE ==
--- NOTE | 2022-12-30 09:10 | MM ---
Reason for Exam: Post Procedure Mammogram. Patient History: Menarche at age 15. First Full-Term at age 21. Right ovary removed at age 42. Hysterectomy at age 42. Mother had breast cancer, age 45. Risk Values: Yessica 5 year model risk: 3.2%. NCI Lifetime model risk: 9.2%. Tissue Density: Right: The breast tissue is heterogeneously dense. This may lower the sensitivity of mammography. Pathology Description: Location: 10 o'clock, upper outer quadrant. Marker Left Behind. Needle Type: Mammotome Cores: 5 Gauge: 13 The procedure of ultrasound guided core biopsy was explained to the patient. Benefits, alternatives, and risks were discussed. An informed consent was then obtained. Initial prescanning at the questioned 7:00 position suggests a dense island of fibroglandular tissue. No abnormal shadowing. The 8:00, 1.8 cm oval, echogenic lesion has more typical appearance of a benign lipoma. Attention is turned to the suspicious irregular 1.8 cm 10:00 right breast mass. The patient was placed in supine positioning for imaging and for the procedure. The overlying skin was prepped and draped in usual sterile fashion. Lidocaine was used as anesthetic into the skin and subcutaneous tissue up to area of concern in the 10:00 right breast. Under ultrasound guidance, a 13-gauge vacuum-assisted mammotome Elite biopsy gun was used to obtain 5 core samples. Following this, a Hydromark biopsy clip was left in lesion. The patient tolerated the procedure well without any immediate complication. The patient was kept in the radiology department for short stay after the procedure and then discharged home in stable condition. Postprocedure mammogram: The patient was transferred to mammography for physician ordered post procedure mammogram for clip placement verification. Postprocedure mammogram shows clip at the mammographic density of concern. Again, the second questioned area at 7:00 has the appearance of dense tissue. IMPRESSION: Successful, uncomplicated ultrasound guided core biopsy of a BI-RADS 5 lesion 10:00 right breast. Full pathology results to follow.The procedure of ultrasound guided core biopsy was explained to the patient. Benefits, alternatives, and risks were discussed. An informed consent was then obtained. Initial prescanning at the questioned 7:00 position suggests a dense island of fibroglandular tissue. No abnormal shadowing. The 8:00, 1.8 cm oval, echogenic lesion has more typical appearance of a benign lipoma. Attention is turned to the suspicious irregular 1.8 cm 10:00 right breast mass. The patient was placed in supine positioning for imaging and for the procedure. The overlying skin was prepped and draped in usual sterile fashion. Lidocaine was used as anesthetic into the skin and subcutaneous tissue up to area of concern in the 10:00 right breast. Under ultrasound guidance, a 13-gauge vacuum-assisted mammotome Elite biopsy gun was used to obtain 5 core samples. Following this, a Hydromark biopsy clip was left in lesion. The patient tolerated the procedure well without any immediate complication. The patient was kept in the radiology department for short stay after the procedure and then discharged home in stable condition. Postprocedure mammogram: The patient was transferred to mammography for physician ordered post procedure mammogram for clip placement verification. Postprocedure mammogram shows clip at the mammographic density of concern. Again, the second questioned area at 7:00 has the appearance of dense tissue. IMPRESSION: 1. Successful, uncomplicated ultrasound guided core biopsy of a BI-RADS 5 lesion 10:00 right breast. Full pathology results to follow. 2. Recommend 3-D mammogram guided biopsy of a second more anteriorly located area along the lower outer quadrant of the right breast. Refer to mammogram of 12/15/2022 right CC view, martin slice 41/74 for the particular area of concern. This area is also depicted on the spot compression CC view of 12/15/2022. Pathology Results: Result: Malignant, Invasive lobular carcinoma. RIGHT BREAST AT TEN O'CLOCK, ULTRASOUND GUIDED NEEDLE CORE BIOPSY: Invasive lobular carcinoma, mixed classical and pleomorphic types. See Surgical Pathology Cancer Case Summary and Comment. Overall Assessment: Malignant Assessment: MG diagnostic mammo RT wo CAD - Right: Known biopsy proven malignancy, BI-RAD 6. Management: Surgical Consultation of the right breast. Electronically signed and approved by: Jesica Whitehead M.D. Radiologist
== END ==
LOC: RADUSWWP 12:45
PROVIDERS: ATTEND Surgery
DX: C50.411 Malignant neoplasm of upper-outer quadrant of right female breast (principal)
CPT/HCPCS: 88305; 88342; 88341; 77065; 19083; A4648

== ENCOUNTER → 2022-12-31 | Outpatient (CLI) | payer MEDICARE ==
[2022-12-31 09:36] VITALS: BP 154/78; PULSE 74; RESP 18; TEMP 98.3
--- NOTE | 2022-12-31 11:14 | P.PN ---
Subjective Progress Note Date: 12/31/22 Principal diagnosis: Right breast invasive lobular carcinoma/additional radiographic abnormalities to be evaluated abnormal right breast ultrasound Radha is a 72 year old white female seen in consultation for Dr. Mao in April 2022 regarding a radiographic abnormality in the right breast. She had a bilateral mammogram on 04-11-22 which led to a right breast ultrasound on 04-14-22. This revealed a 6 by 5 mm probable debris filled cyst. It was BIRAD 3 and repeat right breast mammogram and ultrasound in 6 months was recommended. She did not feel anything of concern prior to the mammogram. She had had a right breast needle biopsy in the past which was benign. She also had a left breast open biopsy which was benign. She was not complaining of any nipple discharge or skin changes. She had not had any recent trauma or infection in the breast. She did complain of a rash on the lateral aspect of her right breast after the mammogram. She was told this was probably shingles. This has subsequently resolved. The patient on [id number] underwent a diagnostic repeat right breast mammogram and ultrasound. The mammogram revealed to increasing areas of focal asymmetry in the right breast mid duct. The ultrasound revealed 3 areas of concern. The first was at 10:00 this was a 1.3 cm lesion for which tissue sampling was recommended biopsy of this revealed invasive lobular carcinoma grade 2/3 ER/CA positive HER-2/tavia negative Area at 7:00 was a dense island of tissue and this area was not biopsied but will now be biopsied Area at 9:00 axillary tail 1.5 cm probable lipoma. Which biopsy is now recommended secondary to the finding above Additionally the patient had a second area on her mammogram which is anterior to the lesion biopsied at 10:00 which did not show on ultrasound and it is recommended that this area be biopsied via 3-D stereo biopsy CC: caffiene: 1 cup/day nicotine: none chocolate: weekly BCP: in her 20's for 1 years Family History: mother: of breast cancer at 50 dx. in 40's Hormonal History: menarche: 15 breast fed: no, first born at 22 menopause: hysterectomy in 40's took one ovary hormones: none Surgical history: left breast biopsy benign hiatal hernia tonsillectomy hysterectomy took one ovary for bleeding, done in her 40's heart cath bladder suspenscion Medical history: meniers disease HTN beta ismael for her heart daibetic high cholesterol Social History: nicotine: none alcohol: none drugs: none - Constitutional Constitutional: Reports sweats - EENT Eyes: denies blurred vision, denies pain Ears: bilateral: decreased hearing, deny: tinnitus Ears, nose, mouth and throat: Denies headache, Denies sore throat - Breasts Breasts: bilateral: as per HPI - Cardiovascular Cardiovascular: Reports as per HPI - Respiratory Respiratory: Denies cough, Denies 7 - Gastrointestinal Comment: IBS ? Gastrointestinal: Reports as per HPI - Genitourinary (Female) Genitourinary: Denies dysuria, Denies hematuria - Menstruation Menstruation: Reports post hysterectomy - Musculoskeletal Musculoskeletal: Reports myalgias - Integumentary Integumentary: Denies pruritus, Denies rash - Neurological Neurological: Denies numbness, Denies weakness - Psychiatric Psychiatric: Denies anxiety, Denies depression - Endocrine Comment: diabetic Endocrine: Reports fatigue - Hematologic/Lymphatic Comment: takes baby aspirin Hematologic/Lymphatic: Reports as per HPI - Allergic/Immunologic Allergic/Immunologic: Reports seasonal allergies Past Medical History Past Medical History: Asthma, Diabetes Mellitus, Eye Disorder, GERD/Reflux, Hyperlipidemia, Hypertension, Pneumonia, Thyroid Disorder Additional Past Medical History / Comment(s): meniere's disease, fuch's dystrophy bilateral eyes, no current RX for asthma, INSULIN DEPENDENT, History of Any Multi-Drug Resistant Organisms: MRSA Date of last positivie culture/infection: approx 1999 MDRO Source:: stomach/ABDOMEN Past Surgical History: Bladder Surgery, Breast Surgery, Heart Catheterization, Hysterectomy, Tonsillectomy Additional Past Surgical History / Comment(s): Breast BIOPSY - RIGHT , colonoscopy, bladder suspension. Cataract surgery, HIATAL HERNIA REPAIR Past Anesthesia/Blood Transfusion Reactions: No Reported Reaction, Motion Sickness Additional Past Anesthesia/Blood Transfusion Reaction / Comment(s): hx of menieres,VERTIGO Past Psychological History: No Psychological Hx Reported Additional Psychological History / Comment(s): . Smoking Status: Never smoker Past Alcohol Use History: None Reported Past Drug Use History: None Reported - Past Family History Father Family Medical History: Diabetes Mellitus Additional Family Medical History / Comment(s): Father of diabetic comp lications in his early 50s. Mother Family Medical History: Cancer Additional Family Medical History / Comment(s): Mother of breast cancer at the age of 50yrs. Medications and Allergies Home Medications Medication Instructions Recorded Confirmed Type Insulin Glargine,Hum.rec.anlog 55 unit SQ QAM 04/22/19 05/09/22 History [Lantus Solostar Pen] Insulin Lispro [humaLOG Kwikpen] 0 unit SQ TID-W/MEALS 04/22/19 05/09/22 History lisinopriL [Zestril] 10 mg PO QAM 04/22/19 05/09/22 History Aspirin 81 mg PO DAILY #30 chew 04/23/19 05/09/22 Rx Levothyroxine Sodium [Synthroid] 150 mcg PO DAILY 06/08/19 05/09/22 History Meclizine [Antivert] 25 mg PO DAILY PRN 06/08/19 05/09/22 History Metoprolol Succinate (ER) [Toprol 25 mg PO QAM 06/08/19 05/09/22 History XL] Acetaminophen Tab [Tylenol] 650 mg PO Q6H PRN 12/04/20 05/09/22 History Atorvastatin [Lipitor] 80 mg PO DAILY 12/04/20 05/09/22 History Cholecalciferol [Vitamin D3 (25 50 mcg PO DAILY 12/04/20 05/09/22 History Mcg = 1000 Iu)] Dulaglutide [Trulicity] 3 mg SQ KILLIAN 05/09/22 05/09/22 History Allergies Allergy/AdvReac Type Severity Reaction Status Date / Time No Known Allergies Allergy Verified 05/09/22 11:49 Objective - Vital Signs Vital signs: Vital Signs Temp 98.3 F 12/31/22 09:34 Pulse 74 12/31/22 09:34 Resp 18 12/31/22 09:34 BP 154/78 12/31/22 09:34 Pulse Ox 99 12/31/22 09:34 FiO2 Intake & Output 12/30/22 12/31/22 12/31/22 18:59 06:59 18:59 Weight 83.915 kg - Constitutional General appearance: Present: cooperative - EENT Eyes: Present: EOMI ENT: Present: hearing grossly normal - Neck Neck: Present: normal ROM - Respiratory Respiratory: bilateral: CTA - Cardiovascular Rhythm: regular Heart sounds: normal: S1, S2 - Integumentary Integumentary Comment(s): echymosis right breast at biopsy site - Musculoskeletal Musculoskeletal: Present: gait normal - Additional findings Additional findings: Breast Exam: BRA: 36D inspection: Bilateral grade 2/3 ptosis, right breast larger than left breast, no residual rash right breast Palpation: Right breast: Multiple positional exam fibrocystic changes no dominant masses or nodules of concern, ecchymosis biopsy site right breast Right axilla: No adenopathy of concern Left breast: Multiple positional exam fibrocystic changes no dominant masses or nodules of concern Left axilla: No adenopathy of concern Assessment and Plan Assessment: Impression: Fibrocystic breast changes bilateral Biopsy-proven right breast invasive lobular carcinoma Anterior lesion right breast which requires biopsy most likely 3-D stereo biopsy Additional lesions identified and ultrasound which require evaluation by biopsy one at 7:00, and one at 9:00 Plan: Biopsy of the anterior lesion right breast by 3-D stereo biopsy Ultrasound-guided core biopsy of the probable lipoma right breast this is in the axillary tail at 9:00 Ultrasound core biopsy of the 7 o'clock position right breast which is most likely dense island of tissue MRI of the breast Follow up after the above is done presentation of case at tumor board Genetic testing The patient's mammogram from March 2022 as well as her ultrasound were reviewed in detail with Dr. Whitehead. Additionally the mammogram and ultrasound from 12-15-22 were reviewed in detail. Cc: Dr. Mao
== END ==
LOC: WWCWWP 08:12
PROVIDERS: ATTEND Surgery
DX: C50.911 Malignant neoplasm of unspecified site of right female breast (principal); N60.11 Diffuse cystic mastopathy of right breast; N64.89 Other specified disorders of breast; N60.12 Diffuse cystic mastopathy of left breast; K21.9 Gastro-esophageal reflux disease without esophagitis; I10 Essential (primary) hypertension; E78.00 Pure hypercholesterolemia, unspecified; E11.9 Type 2 diabetes mellitus without complications; J45.909 Unspecified asthma, uncomplicated; Z79.4 Long term (current) use of insulin; Z80.3 Family history of malignant neoplasm of breast; Z79.899 Other long term (current) drug therapy; Z79.85 Long-term (current) use of injectable non-insulin antidiabetic drugs; E07.9 Disorder of thyroid, unspecified; Z79.890 Hormone replacement therapy; Z17.0 Estrogen receptor positive status [ER+]

== ENCOUNTER 2023-02-24 10:11 | Day surgery (SDC) | payer MEDICARE ==
--- NOTE | 2023-02-19 14:08 | P.PN ---
Subjective Progress Note Date: 02/19/23 Principal diagnosis: Invasive lobular carcinoma right breast, 7:00 area right breast questionable lesion Subjective Progress Note Date: Right breast invasive lobular carcinoma 10:00 7:00 lesion possibly discordant following core biopsy which was benign MRI results reviewed with Dr. Torres from [facility] who did not feel that any additional biopsies were warranted Radha is a 72 year old white female seen in consultation for Dr. Mao in April 2022 regarding a radiographic abnormality in the right breast. She had a bilateral mammogram on 04-11-22 which led to a right breast ultrasound on 04-14-22. This revealed a 6 by 5 mm probable debris filled cyst. It was BIRAD 3 and repeat right breast mammogram and ultrasound in 6 months was recommended. She did not feel anything of concern prior to the mammogram. She had had a right breast needle biopsy in the past which was benign. She also had a left breast open biopsy which was benign. She was not complaining of any nipple discharge or skin changes. She had not had any recent trauma or infection in the breast. She did complain of a rash on the lateral aspect of her right breast after the mammogram. She was told this was probably shingles. This subseque ntly resolved. The patient on underwent a diagnostic repeat right breast mammogram and ultrasound. The mammogram revealed an increasing areas of focal asymmetry in the right breast. An ultrasound revealed 3 areas of concern. The first was at 10:00 this was a 1.3 cm lesion for which tissue sampling was recommended biopsy of this revealed invasive lobular carcinoma grade 2/3 ER/AR positive HER-2/tavia negative Area at 7:00 was a dense island of tissue and this area was not biopsied, attempt via stero breast too thin Area at 9:00 axillary tail 1.5 cm probable lipoma. MRI: 01-29-23 left breast no lesions of concern right breast: suspicious at 7 OClock, + at 10:00, oncotype: 6 02-06-23 the patient's radiographs were sent to [facility] for review. It appears that the radiologist there did not feel there was a lesion to biopsy. I discussed this with the patient. At this time she is declined any further attempted MRI guided biopsy. She will agree to surgical intervention on with a needle localization of 2 areas in the right breast that at the of the biopsy-proven malignancy as well as the area at 7:00. She will also have a sentinel node injection and sentinel node biopsy [place] [id number]. The recommendation after review of the MRI was that she have an MRI guided biopsy of the 7:00 lesion in the right breast. This was canceled after discussion and review with the radiologist at [facility]. CC: caffiene: 1 cup/day nicotine: none chocolate: weekly BCP: in her 20's for 1 years Family History: mother: of breast cancer at 50 dx. in 40's Hormonal History: menarche: 15 breast fed: no, first born at 22 menopause: hysterectomy in 40's took one ovary hormones: none Surgical history: left breast biopsy benign hiatal hernia tonsillectomy hysterectomy took one ovary for bleeding, done in her 40's heart cath bladder suspenscion Medical history: meniers disease HTN beta ismael for her heart daibetic high cholesterol Social History: nicotine: none alcohol: none drugs: none - Constitutional Constitutional: Reports sweats - EENT Eyes: denies blurred vision, denies pain Ears: bilateral: decreased hearing, deny: tinnitus Ears, nose, mouth and throat: Denies headache, Denies sore throat - Breasts Breasts: bilateral: as per HPI - Cardiovascular Cardiovascular: Reports as per HPI - Respiratory Respiratory: Denies cough, - Gastrointestinal Comment: IBS ? Gastrointestinal: Reports as per HPI - Genitourinary (Female) Genitourinary: Denies dysuria, Denies hematuria - Menstruation Menstruation: Reports post hysterectomy - Musculoskeletal Musculoskeletal: Reports myalgias - Integumentary Integumentary: Denies pruritus, Denies rash - Neurological Neurological: Denies numbness, Denies weakness - Psychiatric Psychiatric: Denies anxiety, Denies depression - Endocrine Comment: diabetic Endocrine: Reports fatigue - Hematologic/Lymphatic Comment: takes baby aspirin Hematologic/Lymphatic: Reports as per HPI - Allergic/Immunologic Allergic/Immunologic: Reports seasonal allergies Past Medical History Past Medical History: Asthma, Diabetes Mellitus, Eye Disorder, GERD/Reflux, Hyperlipidemia, Hypertension, Pneumonia, Thyroid Disorder Additional Past Medical History / Comment(s): meniere's disease, fuch's dystrophy bilateral eyes, no current RX for asthma, INSULIN DEPENDENT, History of Any Multi-Drug Resistant Organisms: MRSA Date of last positivie culture/infection: approx 1999 MDRO Source:: stomach/ABDOMEN Past Surgical History: Bladder Surgery, Breast Surgery, Heart Catheterization, Hysterectomy, Tonsillectomy Additional Past Surgical History / Comment(s): Breast BIOPSY - RIGHT , colonoscopy, bladder suspension. Cataract surgery, HIATAL HERNIA REPAIR Past Anesthesia/Blood Transfusion Reactions: No Reported Reaction, Motion Sickness Additional Past Anesthesia/Blood Transfusion Reaction / Comment(s): hx of menieres,VERTIGO Past Psychological History: No Psychological Hx Reported Additional Psychological History / Comment(s): . Smoking Status: Never smoker Past Alcohol Use History: None Reported Past Drug Use History: None Reported - Past Family History Father Family Medical History: Diabetes Mellitus Additional Family Medical History / Comment(s): Father of diabetic complications in his early 50s. Mother Family Medical History: Cancer Additional Family Medical History / Comment(s): Mother of breast cancer at the age of 50yrs. Medications and Allergies Home Medications Medication Instructions Recorded Confirmed Type Insulin Glargine,Hum.rec.anlog 55 unit SQ QAM 04/22/19 05/09/22 History [Lantus Solostar Pen] Insulin Lispro [humaLOG Kwikpen] 0 unit SQ TID-W/MEALS 04/22/19 05/09/22 History lisinopriL [Zestril] 10 mg PO QAM 04/22/19 05/09/22 History Aspirin 81 mg PO DAILY #30 chew 04/23/19 05/09/22 Rx Levothyroxine Sodium [Synthroid] 150 mcg PO DAILY 06/08/19 05/09/22 History Meclizine [Antivert] 25 mg PO DAILY PRN 06/08/19 05/09/22 History Metoprolol Succinate (ER) [Toprol 25 mg PO QAM 06/08/19 05/09/22 History XL] Acetaminophen Tab [Tylenol] 650 mg PO Q6H PRN 12/04/20 05/09/22 History Atorvastatin [Lipitor] 80 mg PO DAILY 12/04/20 05/09/22 History Cholecalciferol [Vitamin D3 (25 50 mcg PO DAILY 12/04/20 05/09/22 History Mcg = 1000 Iu)] Dulaglutide [Trulicity] 3 mg SQ KILLIAN 05/09/22 05/09/22 History Allergies Allergy/AdvReac Type Severity Reaction Status Date / Time No Known Allergies Allergy Verified 05/09/22 11:49 Objective - Vital Signs Vital signs: Intake & Output 02/18/23 02/19/23 02/19/23 18:59 06:59 18:59 Weight 81.647 kg - Constitutional General appearance: Present: cooperative - EENT Eyes: Present: EOMI ENT: Present: hearing grossly normal - Neck Neck: Present: normal ROM - Respiratory Respiratory: bilateral: CTA - Cardiovascular Heart sounds: normal: S1, S2 - Integumentary Integumentary: Present: normal turgor - Musculoskeletal Musculoskeletal: Present: gait normal - Psychiatric Psychiatric: Present: A&O x's 3, appropriate affect, intact judgment & insight - Additional findings Additional findings: Breast Exam: BRA: 36D inspection: Bilateral grade 2/3 ptosis, right breast larger than left breast, no residual rash right breast Palpation: Right breast: Multiple positional exam fibrocystic changes no dominant masses or nodules of concern Right axilla: No adenopathy of concern Left breast: Multiple positional exam fibrocystic changes no dominant masses or nodules of concern Left axilla: No adenopathy of concern Assessment and Plan Assessment: Impression: Fibrocystic breast changes bilateral Biopsy-proven right breast invasive lobular carcinoma at 10:00 Anterior lesion right breast which requires biopsy most likely 3-D stereo biopsy; unable to do secondary to thin tissue will be removed with needle local at surgery Plan: Right breast needle localization and lumpectomy of 2 sites at 10:00 (butterfly clip) and 7:00 (spiral clip), this is of the area anteriorly seen which was unable to be done by stereo biopsy, 2 areas of needle localization, possible onco-plastic tissue transfer, right sentinel node biopsy, right sentinel node injection possible right axillary node dissection Cc: Dr. Mao
[~2023-02-24 10:11] MED LIST changes: -DEXAMETHASONE SOD PHOSPHATE 4 MG/ML 1 ML VIAL IV PRN; -FAMOTIDINE 20 MG/2 ML VIAL IV PRN; +HEPARIN SODIUM,PORCINE/PF 5,000 UNIT/0.5 ML SYRINGE SQ PRN; -HYDROmorphone 0.5 MG/0.5 ML SYRINGE IVP PRN; -LIDOCAINE 1% (10MG/ML) FOR IV START INTRADERMA PRN; -MIDAZOLAM 2 MG/2 ML VIAL IV PRN; -ONDANSETRON 4 MG/2 ML VIAL IVP PRN; +fentaNYL (PF) 50 MCG/ML 2 ML AMP IV PRN
[2023-02-24 10:57] LABS: Glucose,Whole Blood 120 mg/dL (70-110)
[2023-02-24] MEDS ORDERED: MIDAZOLAM 2 MG/2 ML VIAL IVP ONE (11:07)
[2023-02-24] MEDS ORDERED: LIDOCAINE 1% INJ 10MG/ML (20 ML MDV) SQ ONE ×2 (11:44→14:58)
[2023-02-24] MEDS ORDERED: HEPARIN SODIUM,PORCINE 5,000 UNIT/ML 1 ML VIAL SQ ONE (12:52)
--- NOTE | 2023-02-24 13:48 | P.NAPBC ---
NAPBC Queries - NAPBC Queries Was patient's case review presented at [facility] tumor board? If no, comment.: Yes Was patient's pathology reviewed at [facility]? If no, comment.: Yes Was breast conservation surgery offered? If no, comment.: Yes Was sentinel node biopsy offered? If no, comment.: Yes Was diagnosis confirmed by percutaneous core biopsy? If no, comment.: Yes Is patient mastectomy patient?: No Was a preop referral to reconstructive surgeon offered?: No Clinical Stage: stage I right breast invasive lobular cancer [id number]-G2/3
[2023-02-24] MEDS ORDERED: SUCCINYLCHOLINE CHLORIDE 200 MG/10 ML VIAL IV ONE (14:17)
[2023-02-24] MEDS ORDERED: MIDAZOLAM 2 MG/2 ML VIAL ONE (14:17)
[2023-02-24] MEDS ORDERED: fentaNYL (PF) 50 MCG/ML 2 ML AMP ONE (14:17)
[2023-02-24] MEDS ORDERED: LIDOCAINE 2% INJ 20 MG/ML (2 ML VIAL) ONE (14:17)
[2023-02-24] MEDS ORDERED: GLYCOPYRROLATE 0.2 MG/ML 2 ML VIAL ONE (14:17)
[2023-02-24] MEDS ORDERED: PHENYLEPHRINE-0.9% NACL SYG 1,000 MCG/10 ML SYRINGE ONE (14:17)
[2023-02-24] MEDS ORDERED: KETOROLAC 15 MG/ML 1 ML VIAL ONE (14:17)
[2023-02-24] MEDS ORDERED: PROPOFOL 10 MG/ML 20 ML VIAL IV ONE (14:17)
--- NOTE | 2023-02-24 14:32 | NM ---
EXAMINATION TYPE: NM sentinel node injection DATE OF EXAM: 02/24/2023 COMPARISON: 01/19/2023 CLINICAL INDICATION: Female, 72 years old with history of RIGHT BREAST CA; TECHNIQUE AND FINDINGS: The procedure of sentinel lymph node injection was explained to the patient. The benefits, alternatives, and risks were discussed. An informed consent was then obtained. Overlying skin is cleaned with sterile alcohol. Following this, 471 uCi Tc99m Tilmanocept was inject ed in the upper outer aspect of the right nipple intradermally. The patient tolerated the procedure well without any immediate complication. The patient was kept in the radiology department for short stay after the procedure and then taken to surgery for surgical p rocedure what is presumed intraoperative gamma probe will be used for sentinel lymph node detection. IMPRESSION: Right breast radiotracer injection for sentinel node localization as above.
--- NOTE | 2023-02-24 16:29 | P.OP ---
Date of Procedure: 02/24/23 Preoperative Diagnosis: Invasive lobular carcinoma right breast stage I, questionable lesion right breast anterior at 7:00 Postoperative Diagnosis: Same Procedure(s) Performed: Right breast sentinel node biopsy, needle localization of the 10:00 and 7:00 si te, needle localization resection of these 2 sites, onco-plastic tissue transfer 66 cm Anesthesia: ERIKAA Surgeon: Lidia Nicholas Estimated Blood Loss (ml): 10 IV fluids (ml): 500 Pathology: other (Breast tissue, axillary tissue) Condition: stable Disposition: same day Indications for Procedure: Biopsy-proven right breast invasive lobular carcinoma Operative Findings: Dense breast tissue Description of Procedure: The patient was first seen in the radiology department where needle localization at 10:00 and 7:00 lesion was performed. Radiotracer was injected in the right periareolar region. The patient was brought to the operative suite. Following induction of anesthesia the neoprobe was used to identify an area of radioactivity in the axilla. This was identified. The right breast and axilla were then prepped and draped in a sterile fashion. The area of the axilla was approached initially. Using the neoprobe to guide for incision was made and incision was made in the axilla. This was carried into the axillary tissue. Dissection was performed into the axillary tissue and actually medial to the pectoralis minor muscle was the area of greatest radioactivity. A lymph node was identified at this site and resected. The 10 second count on the lymph node was 966. Additional lymphoid tissue was removed from the level I area however this had minimal radioactivity. The background radioactive count was 23. After assured that hemostasis was attained and no other radioactive lymph nodes were identified. The area was well irrigated. The deep tissues were closed using 3-0 Vicryl suture. The skin was closed using 4-0 Monocryl. The area of the breast was then approached. An incision was made between both needles. Wide dissection was performed around the most posterior needle which was a 1 with biopsy-proven invasive lobular carcinoma. This tissue was excised and removed. Posteriorly dissection was performed onto the pectoralis muscle. Anterior dissection was just under the skin. The specimen was removed. It was painted for orientation. Radiograph revealed the area of concern about removed. Titanium clips were placed. The area of the inferior lesion was then approached. The inferior lesion was dissected down to the shaft of the needle through the same incision. It was brought out through the wound. Dissection was performed around this lesion. The inferior margin on the anterior lesion was the inferior margin as well on the posterior lesion. The specimen was painted for orientation. Radiograph of the specimen was performed and revealed the area of concern about removed. An additional tissue was obtained superiorly and medially from the top had no invasive cancer lesion. This specimens were painted for orientation. The margins are as follows: Anterior just under the skin Posterior on pectoralis muscle Superior margin The margin Inferior is the same as the inferior margin on the more anterior lesion Following this the cavity was noted to be 8 x 4 cm. The superior pillar 8 x 3 cm was developed. The inferior can piler 5 x 2 cm was developed. The superior and inferior pillars were brought together to close the defect using 3-0 Vicryl suture. This was after Surgicel in powder form was placed in the cavity which was marked with titanium clips. The total onco-plastic tissue transfer was 66 cm. Patient tolerated the procedure in stable condition. The deep tissues were closed using 3-0 Vicryl suture. The skin was closed using 4-0 Monocryl. Surgical glue was placed. All instrument and sponge counts were correct at the end of the case.
[2023-02-24 16:48] VITALS: TEMP 96.8
[2023-02-24 16:55] LABS: Glucose,Whole Blood 187 mg/dL (70-110)
[2023-02-24] MEDS ORDERED: LACTATED RINGERS 1,000 ML IV ONE (17:30)
[2023-02-24] MEDS ORDERED: ONDANSETRON 4 MG/2 ML VIAL IVP ONE ×2 (17:47)
[2023-02-24 17:59] VITALS: BP 142/66; PULSE 74; RESP 11
== END 2023-02-24 18:14 | disposition home or self-care (01) ==
LOC: OR 10:11
PROVIDERS: ATTEND Surgery
DX: C50.411 Malignant neoplasm of upper-outer quadrant of right female breast (principal); C77.3 Secondary and unspecified malignant neoplasm of axilla and upper limb lymph nodes; N60.11 Diffuse cystic mastopathy of right breast; N60.12 Diffuse cystic mastopathy of left breast; E11.9 Type 2 diabetes mellitus without complications; E78.00 Pure hypercholesterolemia, unspecified; I10 Essential (primary) hypertension; J45.909 Unspecified asthma, uncomplicated; K21.9 Gastro-esophageal reflux disease without esophagitis; Z79.4 Long term (current) use of insulin; Z79.82 Long term (current) use of aspirin; Z79.890 Hormone replacement therapy; Z79.899 Other long term (current) drug therapy
CPT/HCPCS: 88305; 88342; 88307; 88341; 76098; 19281; 38792; 19301; 38900; 14001; 38500; C1819; A9520; J2250; J0330; J1644; J1100; J0690; J2405; J2001 ×2; J3010; J1885; J2704; J2371

== ENCOUNTER → 2023-03-06 | Outpatient (CLI) | payer MEDICARE ==
[2023-03-06 11:37] VITALS: BP 135/73; PULSE 75; RESP 17; TEMP 98.3
--- NOTE | 2023-03-06 11:52 | P.PN ---
Subjective Progress Note Date: 03/06/23 Principal diagnosis: invasive lobular cancer right breast/ (+) margins on excision Right breast invasive lobular carcinoma/additional radiographic abnormalities to be evaluated abnormal right breast ultrasound Radha is a 72 year old white female seen in consultation for Dr. Mao in April 2022 regarding a radiographic abnormality in the right breast. She had a bilateral mammogram on 04-11-22 which led to a right breast ultrasound on 04-14-22. This revealed a 6 by 5 mm probable debris filled cyst. It was BIRAD 3 and repeat right breast mammogram and ultrasound in 6 months was recommended. She did not feel anything of concern prior to the mammogram. She had had a right breast needle biopsy in the past which was benign. She also had a left breast open biopsy which was benign. She was not complaining of any nipple discharge or skin changes. She had not had any recent trauma or infection in the breast. She did complain of a rash on the lateral aspect of her right breast after the mammogram. She was told this was probably shingles. This has subsequently resolved. The patient on underwent a diagnostic repeat right breast mammogram and ultrasound. The mammogram revealed to increasing areas of focal asymmetry in the right breast mid duct. The ultrasound revealed 3 areas of concern. The first was at 10:00 this was a 1.3 cm lesion for which tissue sampling was recommended biopsy of this revealed invasive lobular carcinoma grade 2/3 ER/VA positive HER-2/tavia negative Area at 7:00 was a dense island of tissue and this area was not biopsied but will now be biopsied Area at 9:00 axillary tail 1.5 cm probable lipoma. Which biopsy is now r ecommended secondary to the finding above Additionally the patient had a second area on her mammogram which is anterior to the lesion biopsied at 10:00 which did not show on ultrasound and it is recom mended that this area be biopsied via 3-D stereo biopsy 10:00 lesion stero biopsy: cancelled because the tissue too thin; must be done in the OR ultrasound biopsy at 7:00 ( called 8:00 benign) Ultrasound biopsy at 9:00 (lipoma) MRI: 01-29-23 left breast no lesions of concern right breast: suspicious at 7 OClock, + at 10:00, reviewed with radiologist at [facility] and not felt needed to biopsy anything additional oncotype: 6 Patient declined any further attempted MRI guided biopsy. She will agree to surgical intervention on with a needle localization of 2 areas in the right breast that at the of the biopsy-proven malignancy as well as the area at 7:00. She will also have a sentinel node injection and sentinel node biopsy Her case was presented at tumor board on . The recommendation after review of the MRI was that she have an MRI guided biopsy of the 7:00 lesion in the right breast. The patient was called she is aware of this and this is being scheduled. This will be done at [facility]. Her surgical date may be changed based on awaiting the results of the biopsy. Patient underwent a lumpectomy and axillary node biopsy on 02-24-23; pathology revealed 2.4 cm tumor, 2 nodes (+); margins posterior on pect +, medial margin (+), superior margin (+), lateral margin (+) CC: caffiene: 1 cup/day nicotine: none chocolate: weekly BCP: in her 20's for 1 years Family History: mother: of breast cancer at 50 dx. in 40's Hormonal History: menarche: 15 breast fed: no, first born at 22 menopause: hysterectomy in 40's took one ovary hormones: none Surgical history: left breast biopsy benign hiatal hernia tonsillectomy hysterectomy took one ovary for bleeding, done in her 40's heart cath bladder suspenscion Medical history: meniers disease HTN beta ismael for her heart daibetic high cholesterol Social History: nicotine: none alcohol: none drugs: none - Constitutional Constitutional: Reports sweats - EENT Eyes: denies blurred vision, denies pain Ears: bilateral: decreased hearing, deny: tinnitus Ears, nose, mouth and throat: Denies headache, Denies sore throat - Breasts Breasts: bilateral: as per HPI - Cardiovascular Cardiovascular: Reports as per HPI - Respiratory Respiratory: Denies cough, - Gastrointestinal Comment: IBS ? Gastrointestinal: Reports as per HPI - Genitourinary (Female) Genitourinary: Denies dysuria, Denies hematuria - Menstruation Menstruation: Reports post hysterectomy - Musculoskeletal Musculoskeletal: Reports myalgias - Integumentary Integumentary: Denies pruritus, Denies rash - Neurological Neurological: Denies numbness, Denies weakness - Psychiatric Psychiatric: Denies anxiety, Denies depression - Endocrine Comment: diabetic Endocrine: Reports fatigue - Hematologic/Lymphatic Comment: takes baby aspirin Hematologic/Lymphatic: Reports as per HPI - Allergic/Immunologic Allergic/Immunologic: Reports seasonal allergies Past Medical History Past Medical History: Asthma, Diabetes Mellitus, Eye Disorder, GERD/Reflux, Hyperlipidemia, Hypertension, Pneumonia, Thyroid Disorder Additional Past Medical History / Comment(s): meniere's disease, fuch's dystrophy bilateral eyes, no current RX for asthma, INSULIN DEPENDENT, History of Any Multi-Drug Resistant Organisms: MRSA Date of last positivie culture/infection: approx 1999 MDRO Source:: stomach/ABDOMEN Past Surgical History: Bladder Surgery, Breast Surgery, Heart Catheterization, Hysterectomy, Tonsillectomy Additional Past Surgical History / Comment(s): Breast BIOPSY - RIGHT , colonoscopy, bladder suspension. Cataract surgery, HIATAL HERNIA REPAIR Past Anesthesia/Blood Transfusion Reactions: No Reported Reaction, Motion Sickness Additional Past Anesthesia/Blood Transfusion Reaction / Comment(s): hx of menieres,VERTIGO Past Psychological History: No Psychological Hx Reported Additional Psychological History / Comment(s): . Smoking Status: Never smoker Past Alcohol Use History: None Reported Past Drug Use History: None Reported - Past Family History Father Family Medical History: Diabetes Mellitus Additional Family Medical History / Comment(s): Father of diabetic complications in his early 50s. Mother Family Medical History: Cancer Additional Family Medical History / Comment(s): Mother of breast cancer at the age of 50yrs. Medications and Allergies Home Medications Medication Instructions Recorded Confirmed Type Insulin Glargine,Hum.rec.anlog 55 unit SQ QAM 04/22/19 05/09/22 History [Lantus Solostar Pen] Insulin Lispro [humaLOG Kwikpen] 0 unit SQ TID-W/MEALS 04/22/19 05/09/22 History lisinopriL [Zestril] 10 mg PO QAM 04/22/19 05/09/22 History Aspirin 81 mg PO DAILY #30 chew 04/23/19 05/09/22 Rx Levothyroxine Sodium [Synthroid] 150 mcg PO DAILY 06/08/19 05/09/22 History Meclizine [Antivert] 25 mg PO DAILY PRN 06/08/19 05/09/22 History Metoprolol Succinate (ER) [Toprol 25 mg PO QAM 06/08/19 05/09/22 History XL] Acetaminophen Tab [Tylenol] 650 mg PO Q6H PRN 12/04/20 05/09/22 History Atorvastatin [Lipitor] 80 mg PO DAILY 12/04/20 05/09/22 History Cholecalciferol [Vitamin D3 (25 50 mcg PO DAILY 12/04/20 05/09/22 History Mcg = 1000 Iu)] Dulaglutide [Trulicity] 3 mg SQ KILLIAN 05/09/22 05/09/22 History Allergies Allergy/AdvReac Type Severity Reaction Status Date / Time No Known Allergies Allergy Verified 05/09/22 11:49 Objective - Vital Signs Vital signs: Intake & Output 03/05/23 03/06/23 03/06/23 18:59 06:59 18:59 Weight 81.647 kg - Constitutional General appearance: Present: cooperative - EENT Eyes: Present: EOMI - Respiratory Respiratory: bilateral: CTA - Cardiovascular Rhythm: regular Heart sounds: normal: S1, S2 - Integumentary Integumentary Comment(s): incision right breast clean and dry, right axillary incision clean and dry - Musculoskeletal Musculoskeletal: Present: gait normal - Psychiatric Psychiatric: Present: A&O x's 3, appropriate affect, intact judgment & insight - Additional findings Additional findings: Breast examination: BRA: 38DD Inspection: Right breast incision and axillary incision clean and dry Assessment and Plan Assessment: Impression: T 2.4 cm 2 nodes (+) ER+Pr+Her2- history of lobular carcinoma right breast, status post lumpectomy with positive margins Extensive LCIS and specimen Plan: The patient needs to have reexcision for margins that are positive in the right breast. We will present her case at tumor board The patient will decide if she would like to have reexcision of margins or mastectomy. She understands that even if she has a mastectomy would recommend radiation therapy secondary to the positive axillary nodes. Additionally if the margins were positive began than a mastectomy may be recommended. She is going to consider this. CC: Dr Mao
== END ==
LOC: WWCWWP 10:35
PROVIDERS: ATTEND Surgery
DX: D05.01 Lobular carcinoma in situ of right breast (principal); R59.0 Localized enlarged lymph nodes; Z80.3 Family history of malignant neoplasm of breast; E11.9 Type 2 diabetes mellitus without complications; I10 Essential (primary) hypertension; E78.00 Pure hypercholesterolemia, unspecified; K21.9 Gastro-esophageal reflux disease without esophagitis; J45.909 Unspecified asthma, uncomplicated; E07.9 Disorder of thyroid, unspecified; Z79.4 Long term (current) use of insulin; Z79.82 Long term (current) use of aspirin; Z79.899 Other long term (current) drug therapy; Z79.85 Long-term (current) use of injectable non-insulin antidiabetic drugs; Z85.3 Personal history of malignant neoplasm of breast; Z17.0 Estrogen receptor positive status [ER+]

== ENCOUNTER → 2023-03-12 | Outpatient (CLI) | payer MEDICARE ==
--- NOTE | 2023-03-16 22:00 | PE ---
EXAMINATION TYPE: PET CT fusion skull to thigh DATE OF EXAM: 03/12/2023 COMPARISON: No recent pertinent CTs. Prior PET/CT: None at this location HISTORY: Invasive lobular carcinoma TECHNIQUE: Following the intravenous administration of 10.92 mCi of F-18 FDG, whole body images are performed from the skull base to the midthigh. Images are reviewed on the computer in the coronal, a xial, and sagittal planes. Reconstructed rotating images are created on independent workstation and reviewed on the computer. A localization and attenuation correction CT is performed in conjunction with the PET scan. DLP: 763.90 mGycm SCAN: Initial Blood glucose: 1:30 mg/dL Average Mediastinum SUV: Average Liver SUV: FINDINGS: NECK: No abnormal uptake THORAX: There is uptake within the right axillary lymph nodes. SUV 1.81, image 73 ABDOMEN: No abnormal uptake PELVIS: There is some mild rectal uptake posterolateral rectum, image 200, SUV 6.56. Examination of t he rectum is recommended.. OSSEOUS STRUCTURES: No abnormal uptake LOCALIZATION CT: Cholelithiasis. There is a large hematoma with some mild peripheral radiotracer comp atible with patient's surgery. COMPARISON: None IMPRESSION: 1. Mild Uptake within right axillary lymph nodes. 2. Uptake within the right posterior lateral rectal is nonspecific and may be physiologic. Examinatio n however is recommended. 3. Post lumpectomy right breast changes
== END | disposition home or self-care (01) ==
LOC: RADPETMAIN 13:58
PROVIDERS: ATTEND Surgery
DX: C50.411 Malignant neoplasm of upper-outer quadrant of right female breast (principal); Z98.890 Other specified postprocedural states
CPT/HCPCS: 78815; A9552

== ENCOUNTER 2023-03-31 07:16 | Day surgery (SDC) | payer MEDICARE ==
[2023-03-26 12:16] VITALS: BMI 35.2
[~2023-03-31 07:16] MED LIST changes: -LACTATED RINGERS 1,000 ML IV SCH; +LIDOCAINE 1% (10MG/ML) FOR IV START INTRADERMA PRN; -fentaNYL (PF) 50 MCG/ML 2 ML AMP IV PRN
[2023-03-31 08:04] LABS: Glucose,Whole Blood 121 mg/dL (70-110)
[2023-03-31] MEDS: LACTATED RINGERS 1,000 ML IV SCH (08:05)
[2023-03-31] MEDS ORDERED: PROPOFOL 10 MG/ML 20 ML VIAL IV ONE (08:24)
[2023-03-31] MEDS ORDERED: diphenhydrAMINE 50 MG/ML 1 ML VIAL ONE (08:24)
[2023-03-31] MEDS ORDERED: MIDAZOLAM 2 MG/2 ML VIAL ONE (08:24)
[2023-03-31] MEDS ORDERED: LIDOCAINE 1% INJ 10MG/ML (20 ML MDV) ONE (08:24)
[2023-03-31] MEDS ORDERED: fentaNYL (PF) 50 MCG/ML 2 ML AMP ONE (08:24)
[2023-03-31] MEDS ORDERED: SUCCINYLCHOLINE CHLORIDE 200 MG/10 ML VIAL IV ONE (08:24)
--- NOTE | 2023-03-31 08:42 | P.NAPBC ---
NAPBC Queries - NAPBC Queries Was patient's case review presented at [facility] tumor board? If no, comment.: Yes Was patient's pathology reviewed at [facility]? If no, comment.: Yes Was breast conservation surgery offered? If no, comment.: Yes Was sentinel node biopsy offered? If no, comment.: No (already done) Was diagnosis confirmed by percutaneous core biopsy? If no, comment.: Yes Is patient mastectomy patient?: Yes Was a preop referral to reconstructive surgeon offered?: Yes Clinical Stage: [id number]+Pr+Hr2-G2 right breast invasive lobular cancer
[2023-03-31] MEDS ORDERED: MELATONIN 3 MG TABLET PO PRN (11:04)
[2023-03-31] MEDS ORDERED: NALOXONE 0.4 MG/ML 1 ML VIAL IV PRN (11:04)
[2023-03-31] MEDS ORDERED: ONDANSETRON 4 MG/2 ML VIAL IVP PRN (11:04)
--- NOTE | 2023-03-31 11:04 | P.OP ---
Date of Procedure: 03/31/23 Preoperative Diagnosis: Right breast invasive lobular carcinoma status post lumpectomy with positive margins Postoperative Diagnosis: Same Procedure(s) Performed: Right breast mastectomy with axillary node dissection Anesthesia: LAURA Surgeon: Lidia Nicholas Estimated Blood Loss (ml): 20 IV fluids (ml): 600 Pathology: other (Right breast, right axillary contents) Condition: stable Disposition: floor Indications for Procedure: Right lumpectomy with positive margins, patient to undergo mastectomy Operative Findings: Fibrofatty breast tissue Description of Procedure: The patient is a 72-year-old white female who is status post right breast lumpectomy and sentinel node resection of 2 nodes which were positive. The patient's margins were positive for invasive lobular carcinoma and reexcision versus mastectomy were discussed with the patient. She wished to undergo a mastectomy. Additionally secondary to the 2 positive lymph nodes any additional lymph nodes which were palpable due to be removed. The patient was taken to the operative suite and following induction of anesthesia the right breast and axilla were prepped and draped in a sterile fashion. A superior skin flap was developed. Using the electrocautery device. Dissection was performed from superior flap down to the pectoralis major muscle. An inferior skin flap was likewise developed. The breast was removed from medial to lateral off the pectoralis muscle using electrocautery device as well as the Harmonic scalpel. The breast was dissected laterally to the axilla. It was divided at that point. Following this the area of the axilla was approached. The pectoralis minor muscle was followed superiorly to the axillary vein. The tissues were swept inferiorly being careful to identify and preserve the thoracodorsal and long thoracic nerves. The wound was then well irrigated. Sutures were placed on the breast for orientation. The wound was well irrigated. 2 BETZAIDA drains were placed. Surgicel in powder form was placed. Several vessels were ligated. After we were assured that hemostasis was attained the deep tissues were closed using 3-0 interrupted Vicryl suture. This was followed by a 3-0 Vicryl subcutaneous suture. This was followed by a 4-0 Monocryl subcuticular suture. The drains were secured using nylon drains. The lateral aspect of the incision was reinforced with a nylon suture. At the end of the case all instrument and sponge counts were correct. The patient tolerated the procedure in stable condition.
[2023-03-31 11:43] LABS: Glucose,Whole Blood 164 mg/dL (70-110)
[2023-03-31] MEDS: fentaNYL (PF) 50 MCG/ML 2 ML AMP IV PRN ×3 (11:48→12:31)
[2023-03-31] MEDS: SODIUM CHLORIDE 0.9% 1,000 ML IV SCH ×2 (12:39→21:15)
[2023-03-31] MEDS: HYDROmorphone 1 MG/ML 1 ML SYRINGE IVP PRN ×2 (13:14→16:54)
[2023-03-31] MEDS ORDERED: MECLIZINE 25 MG TAB PO PRN (14:29)
[2023-03-31] MEDS ORDERED: DEXTROSE 50% SYRINGE 50 ML IVP PRN ×2 (14:30)
--- NOTE | 2023-03-31 16:05 | P.CONS ---
History of Present Illness - Reason for Consult Consult date: 03/31/23 Medical management Requesting physician: Lidia Nicholas - Chief Complaint Right breast surgery - History of Present Illness This is a pleasant 72-year-old patient, status post right breast lumpectomy and sentinel node resection of tumor that were positive. Positive for invasive low- grade adenocarcinoma. Patient underwent right mastectomy with axillary node dissection. Estimated blood loss was 20 mL. Patient received pain medications. Somewhat drowsy. and daughter the bedside. Postoperative pain present. No chest pain or shortness of breath. Patient has 2 drains. Chronic stable medical conditions include asthma, diabetes, hypertension, hyperlipidemia, hypothyroid, Mnire's disease,fuch dystrophia dye. Osteoporosis. Review of systems: Difficult to obtain as patient is drowsy Past medical history to include: Asthma, diabetes, hyperlipidemia, hypertension, hypothyroid, right breast cancer, Mnire's disease,fuch dystrophia bilateral eyes, osteoporosis, Social history: Lives with . No smoking. No alcohol. Physical examination: VITAL SIGNS: 97.5, 68, 16, 159/73, 99% 2 L GENERAL: BMI 35.3, laying in bed somewhat groggy after getting IV pain medication. EYES: Pupils equal. Conjunctiva normal. HEENT: External appearance of nose and ears normal, oral cavity grossly normal. NECK: JVD unable to assess; masses not palpable. HEART: First and second heart sounds are normal; no edema. LUNGS: Respiratory rate normal; clear to auscultation. ABDOMEN: Soft, nontender, liver spleen not palpable, no masses palpable. PSYCH: Unable to assess patient rather groggyl. MUSCULOSKELETAL:No Clubbing/cyanosis;muscles-grossly intact. OA NEUROLOGICAL: Cranial nerves grossly intact; no facial asymmetry, power and sensation grossly intact. LYMPHATICS: No lymph nodes palpable in neck CHEST wall: Dressing over the operative site. 2 BETZAIDA drains INVESTIGATIONS, reviewed in the clinical context: Accu-Cheks 121, 164 02/19/2023: White count 7.1 hemoglobin 14.3 platelets 209 sodium 141 potassium 4.3 BUN 5.4 creatinine 0.6 TSH 0.488 HbA1c 6.9 Assessment and plan: -Right breast invasive low-grade carcinoma status post lumpectomy with positive margins. Followed by today right breast mastectomy with actually no dissection by Dr. Ignacia luong. [address] Pain management per surgery. -Diabetes mellitus type 2, chronically on insulin Resume Lantus 44 units. Follow Accu-Cheks and sliding scale. -Essential hypertension Zestril 10 mg a day, Toprol-XL 25 mg a day, -Hyperlipidemia Lipitor 80 mg a day -Hypothyroid Synthroid 137 g a day -Mnire's disease Antivert when necessary -Obesity BMI 35.3 Weight loss measures, outpatient Care was discussed with the patient and daughter the bedside. Questions answered. Lovenox added for DVT prophylaxis. Thank you, will follow Past Medical History Past Medical History: Asthma, Diabetes Mellitus, Eye Disorder, Hyperlipidemia, Hypertension, Pneumonia, Thyroid Disorder Additional Past Medical History / Comment(s): Current Right breast cancer,IDDm, meniere's disease, fuch's dystrophy bilateral eyes behind retinas- water retention-just watching, no current,reflux resolved after hiatal hernia repair,osteoporosis History of Any Multi-Drug Resistant Organisms: MRSA Year Discovered:: approx 1999 MDRO Source:: stomach/abdomen Past Surgical History: Bladder Surgery, Breast Surgery, Heart Catheterization, Hysterectomy, Tonsillectomy Additional Past Surgical History / Comment(s): Breast BIOPSY - RIGHT , rt breast lumpectomy, colonoscopy, bladder suspension. Cataract surgery, HIATAL HERNIA REPAIR Past Anesthesia/Blood Transfusion Reactions: No Reported Reaction Additional Past Anesthesia/Blood Transfusion Reaction / Comm: hx of menieres,VERTIGO. no hx blood transfusion Past Psychological History: No Psychological Hx Reported Additional Psychological History / Comment(s): . Smoking Status: Never smoker Past Alcohol Use History: None Reported Past Drug Use History: None Reported - Past Family History Father Family Medical History: Diabetes Mellitus Additional Family Medical History / Comment(s): Father of diabetic complications in his early 50s. Mother Family Medical History: Cancer Additional Family Medical History / Comment(s): Mother of breast cancer at the age of 50yrs. Medications and Allergies Home Medications Medication Instructions Recorded Confirmed Type Insulin Glargine,Hum.rec.anlog 55 unit SQ QAM 04/22/19 03/26/23 History [Lantus Solostar Pen] Insulin Lispro [humaLOG Kwikpen] 0 unit SQ TID-W/MEALS 04/22/19 03/26/23 History lisinopriL [Zestril] 10 mg PO QAM 04/22/19 03/26/23 History Levothyroxine Sodium [Synthroid] 137 mcg PO QAM 06/08/19 03/26/23 History Meclizine [Antivert] 25 mg PO DAILY PRN 06/08/19 03/31/23 History Metoprolol Succinate (ER) [Toprol 25 mg PO QAM 06/08/19 03/26/23 History XL] Atorvastatin [Lipitor] 80 mg PO QAM 12/04/20 03/26/23 History Cholecalciferol [Vitamin D3 (25 50 mcg PO QAM 12/04/20 03/26/23 History Mcg = 1000 Iu)] Tirzepatide [Mounjaro] 5 mg SQ KILLIAN 12/17/22 03/26/23 History Aspirin 81 mg PO QAM 02/18/23 03/26/23 History Ibuprofen [Advil] 800 mg PO Q8HR PRN 03/26/23 03/26/23 History Allergies Allergy/AdvReac Type Severity Reaction Status Date / Time acetaminophen [From Tylenol] AdvReac Nausea & Verified 03/31/23 07:32 Vomiting hydrocodone [From Mcrae] AdvReac Nausea & Verified 03/31/23 07:32 Vomiting Physical Exam Vitals: Vital Signs Temp Pulse Pulse Resp BP Pulse Ox 03/31/23 14:45 69 16 141/64 97 03/31/23 14:15 67 16 147/67 94 L 03/31/23 13:45 70 16 141/67 97 03/31/23 13:30 70 16 141/65 97 03/31/23 13:15 87 16 168/74 99 03/31/23 13:00 97.5 F L 68 16 159/73 99 03/31/23 12:40 58 L 16 158/56 95 03/31/23 12:25 58 L 16 167/72 97 03/31/23 12:10 66 16 166/74 98 03/31/23 11:55 57 L 16 159/67 100 03/31/23 11:40 60 16 161/71 100 03/31/23 11:25 96.8 F L 61 14 177/70 96 03/31/23 07:42 97.7 F 86 16 176/78 99 Intake and Output 03/31/23 03/31/23 03/31/23 06:59 14:59 22:59 Intake Total 1050 Output Total 20 150 Balance 1030 -150 Intake: IV 1050 Output: Urine 150 Estimated Blood Loss 20 Other: # Voids 1 Weight 82 kg Results Labs: Abnormal Lab Results - Last 24 Hours (Table) 03/31/23 03/31/23 Range/Units 08:02 11:41 POC Glucose (mg/dL) 121 H 164 H (70-110) mg/dL
[2023-03-31 17:01] LABS: Glucose,Whole Blood 184 mg/dL (70-110)
[2023-03-31] MEDS: INSULIN ASPART (NovoLOG) 100 UNIT/ML VIAL SQ SCH (17:38)
[2023-04-01] MEDS ORDERED: LEVOTHYROXINE 137 MCG TAB PO SCH (06:30)
[2023-04-01] MEDS ORDERED: INSULIN DETEMIR (LEVEMIR) 100 UNIT/ML SYR SQ SCH (07:00)
[2023-04-01 07:05] LABS: Glucose,Whole Blood 150 mg/dL (70-110)
[2023-04-01 07:22] LABS: Basophils % (A) 0 %; Eosinophils # (A) 0.1 k/uL (0-0.7); Eosinophils % (A) 1 %; HCT 35.5 % (34.0-46.0); HGB 12.2 gm/dL (11.4-16.0); Lymphocytes # (A) 2.3 k/uL (1.0-4.8); Lymphocytes % (A) 18 %; MCH 31.6 pg (25.0-35.0); MCHC 34.3 g/dL (31.0-37.0); MCV 92.1 fL (80.0-100.0); Mean Platelet Volume 8.1; Monocytes # (A) 0.6 k/uL (0-1.0); Monocytes % (A) 5 %; Neutrophils # (A) 9.5 k/uL (1.3-7.7); Neutrophils % (A) 76 %; Platelet Count 220 k/uL (150-450); RBC 3.85 m/uL (3.80-5.40); RDW 13.9 % (11.5-15.5); WBC 12.6 k/uL (3.8-10.6)
[2023-04-01] MEDS: LACTATED RINGERS 1,000 ML IV SCH (08:38)
[2023-04-01] MEDS: SODIUM CHLORIDE 0.9% 1,000 ML IV SCH (08:39)
[2023-04-01] MEDS: INSULIN ASPART (NovoLOG) 100 UNIT/ML VIAL SQ SCH ×2 (08:39→14:23)
[2023-04-01] MEDS ORDERED: ASPIRIN 81 MG PO SCH (09:00)
[2023-04-01] MEDS ORDERED: ENOXAPARIN 40 MG/0.4 ML SYRINGE SQ SCH (09:00)
[2023-04-01] MEDS ORDERED: lisinopriL 10 MG TAB PO SCH (09:00)
[2023-04-01] MEDS ORDERED: METOPROLOL SUCCINATE (ER) 25 MG TAB.ER.24H PO SCH (09:00)
[2023-04-01] MEDS ORDERED: ATORVASTATIN 80 MG TAB PO SCH (09:00)
[2023-04-01 09:26] VITALS: BP 144/65; PULSE 80; RESP 14; TEMP 98.2
--- NOTE | 2023-04-01 13:44 | P.PN ---
Subjective Progress Note Date: 04/01/23 Principal diagnosis: right breast mastectomy POD#1 Radha is a 72-year-old white female postop day #1 right mastectomy. She also had No dissection. Postoperatively she is doing well without complications. Objective - Vital Signs Vital signs: Vital Signs Temp 98.2 F 04/01/23 09:21 Pulse 80 04/01/23 09:21 Resp 14 04/01/23 09:21 BP 144/65 04/01/23 09:21 Pulse Ox 98 04/01/23 09:21 FiO2 Intake & Output 03/31/23 04/01/23 04/01/23 18:59 06:59 18:59 Intake Total 1050 Output Total 170 700 245 Balance 880 -700 -245 Weight 82 kg Intake: IV 1050 Output: Drainage 70 Right Breast 60 Right Posterior Breast 10 Urine 150 700 175 Estimated Blood Loss 20 Other: # Voids 1 1 - Constitutional General appearance: Present: cooperative - EENT Eyes: Present: EOMI ENT: Present: hearing grossly normal - Neck Neck: Present: normal ROM - Respiratory Respiratory: bilateral: CTA - Cardiovascular Heart sounds: normal: S1, S2 - Integumentary Integumentary Comment(s): Incision right breast clean and dry Dressing change BETZAIDA output 60 mL serous in nature - Labs CBC & Chem 7: 04/01/23 07:00 Labs: Abnormal Lab Results - Last 24 Hours (Table) 03/31/23 04/01/23 04/01/23 Range/Units 17:00 07:00 07:04 WBC 12.6 H (3.8-10.6) k/uL Neutrophils # 9.5 H (1.3-7.7) k/uL POC Glucose (mg/dL) 184 H 150 H (70-110) mg/dL Assessment and Plan Assessment: Impression: Patient doing well postop Plan: Discharge home to be followed as an outpatient
[2023-04-01 13:47] LABS: Glucose,Whole Blood 142 mg/dL (70-110)
--- NOTE | 2023-04-02 19:55 | P.PN ---
Progress Note - Text Progress Note Date: 04/01/23 - Chief Complaint Right breast surgery - History of Present Illness This is a pleasant 72-year-old patient, status post right breast lumpectomy and sentinel node resection of tumor that were positive. Positive for invasive low- grade adenocarcinoma. Patient underwent right mastectomy with axillary node dissection. Estimated blood loss was 20 mL. Patient received pain medications. Somewhat drowsy. and daughter the bedside. Postoperative pain present. No chest pain or shortness of breath. Patient has 2 drains. Chronic stable medical conditions include asthma, diabetes, hypertension, hyperlipidemia, hypothyroid, Mnire's disease,fuch dystrophia dye. Osteoporosis. April 01: Didn't tolerate some breakfast. Pain better control. No nausea vomiting. Discussed with the patient and daughter the bedside. Sam garay answered. Slight dizziness. Has underlying Mnire's. Has been up to the bathroom. Review of systems: Difficult to obtain as patient is drowsy Past medical history to include: Asthma, diabetes, hyperlipidemia, hypertension, hypothyroid, right breast cancer, Mnire's disease,fuch dystrophia bilateral eyes, osteoporosis, Social history: Lives with . No smoking. No alcohol. Physical examination: VITAL SIGNS: 98.2, 80, 14, 144/65, 90% room air GENERAL: Reclining in bed, comfortable EYES: Pupils equal. Conjunctiva normal. HEENT: External appearance of nose and ears normal, oral cavity grossly normal. NECK: JVD unable to assess; masses not palpable. HEART: First and second heart sounds are normal; no edema. LUNGS: Respiratory rate normal; clear to auscultation. ABDOMEN: Soft, nontender, liver spleen not palpable, no masses palpable. PSYCH: Unable to assess patient rather groggyl. MUSCULOSKELETAL:No Clubbing/cyanosis;muscles-grossly intact. OA CHEST wall: Dressing over the operative site. 2 BETZAIDA drains INVESTIGATIONS, reviewed in the clinical context: April 01: White count 12.6 hemoglobin 12.2 platelets 220 Accu-Cheks 121, 164 02/19/2023: White count 7.1 hemoglobin 14.3 platelets 209 sodium 141 potassium 4.3 BUN 5.4 creatinine 0.6 TSH 0.488 HbA1c 6.9 Assessment and plan: -Right breast invasive low-grade carcinoma status post lumpectomy with positive margins. Followed by today right breast mastectomy with actually no dissection by Dr. Ignacia luong. [address] Pain management per surgery. -Diabetes mellitus type 2, chronically on insulin Resume Lantus 44 units. Follow Accu-Cheks and sliding scale. -Slight leukocytosis, likely reactive from surgery. No obvious evidence of infection -Essential hypertension Zestril 10 mg a day, Toprol-XL 25 mg a day, -Hyperlipidemia Lipitor 80 mg a day -Hypothyroid Synthroid 137 g a day -Mnire's disease Antivert when necessary -Obesity BMI 35.3 Weight loss measures, outpatient Care was discussed with the patient and the family the bedside. Questions answered. Follow-up with PCP upon discharge Thank you,
== END 2023-04-01 14:24 | disposition home health service (06) ==
LOC: OR 07:16 → 4FBP 11:17 → OR 04-01 14:24
PROVIDERS: ATTEND Surgery
DX: C50.411 Malignant neoplasm of upper-outer quadrant of right female breast (principal); J45.909 Unspecified asthma, uncomplicated; I10 Essential (primary) hypertension; E78.5 Hyperlipidemia, unspecified; E11.9 Type 2 diabetes mellitus without complications; K21.9 Gastro-esophageal reflux disease without esophagitis; H57.9 Unspecified disorder of eye and adnexa; J18.9 Pneumonia, unspecified organism; Z86.61 Personal history of infections of the central nervous system; Z98.61 Coronary angioplasty status; Z83.3 Family history of diabetes mellitus; Z82.49 Family history of ischemic heart disease and other diseases of the circulatory system; Z90.11 Acquired absence of right breast and nipple; Z79.4 Long term (current) use of insulin; Z79.82 Long term (current) use of aspirin; Z79.84 Long term (current) use of oral hypoglycemic drugs; Z79.85 Long-term (current) use of injectable non-insulin antidiabetic drugs; Z79.1 Long term (current) use of non-steroidal anti-inflammatories (NSAID); Z88.5 Allergy status to narcotic agent; Z88.6 Allergy status to analgesic agent
CPT/HCPCS: 19302; 85025; 88307; J2250; J0330; J1200; J1100; J0690; J2405; J2001; J1650; J3010; J1170; J2704; J1644

== ENCOUNTER → 2023-04-09 | Outpatient (CLI) | payer MEDICARE ==
--- NOTE | 2023-04-09 11:40 | P.PN ---
Progress Note - Text Progress Note Date: 04/09/23 Radha is a 72-year-old white female status post right breast mastectomy and axillary node resection following a lumpectomy on which had positive margins. On her lumpectomy and sentinel node specimen she had 1 node positive for metastatic carcinoma and multiple margins involved. Therefore she underwent a right breast mastectomy and axillary node resection. Pathology revealed all margins negative. There was a residual 1 mm focus of tumor. Lymph nodes removed 4 nodes removed 3 positive. Lungs: Clear Incision: Clean and dry BETZAIDA at the axilla approximately 40 mL a day BETZAIDA under the mastectomy flap less than 20 mL per day Plan: Removed BETZAIDA under mastectomy flap Keep suture lateral aspect of incision until next week Removed axillary BETZAIDA drain next week appointment medical oncology appointment radiation oncology
== END ==
LOC: WWCBREAST 11:16
PROVIDERS: ATTEND Surgery
DX: C50.411 Malignant neoplasm of upper-outer quadrant of right female breast (principal); Z53.9 Procedure and treatment not carried out, unspecified reason

== ENCOUNTER → 2023-04-14 | Outpatient (CLI) | payer MEDICARE ==
--- NOTE | 2023-04-14 08:23 | P.PN ---
Progress Note - Text Progress Note Date: 04/14/23 Radha is a 72-year-old white female status post right breast mastectomy and axillary node resection following a lumpectomy on which had positive margins. On her lumpectomy and sentinel node specimen she had 1 node positive for metastatic carcinoma and multiple margins involved. Therefore she underwent a right breast mastectomy and axillary node resection. Pathology revealed all margins negative. There was a residual 1 mm focus of tumor. Lymph nodes removed 4 nodes removed 3 positive. Lungs: Clear Incision: Clean and dry BETZAIDA at the axilla approximately 40 mL a day Plan: Removed BETZAIDA nest week axilla remove suture lateral aspect of incision until next week appointment medical oncology appointment radiation oncology follow up 1 week
[2023-04-14 08:54] VITALS: BP 124/69; PULSE 89; RESP 13; TEMP 97.8
== END ==
LOC: WWCWWP 07:59
PROVIDERS: ATTEND Surgery
DX: L76.82 Other postprocedural complications of skin and subcutaneous tissue (principal); Z90.11 Acquired absence of right breast and nipple; Z85.3 Personal history of malignant neoplasm of breast; Z88.1 Allergy status to other antibiotic agents; Z88.5 Allergy status to narcotic agent

== ENCOUNTER → 2023-04-21 | Outpatient (CLI) | payer MEDICARE ==
--- NOTE | 2023-04-21 08:54 | P.PN ---
Progress Note - Text Progress Note Date: 04/21/23 Radha is a 72-year-old white female status post right breast mastectomy and axillary node resection following a lumpectomy on which had positive margins. On her lumpectomy and sentinel node specimen she had 1 node positive for metastatic carcinoma and multiple margins involved. Therefore she underwent a right breast mastectomy and axillary node resection. Pathology revealed all margins negative. There was a residual 1 mm focus of tumor. Lymph nodes removed 4 nodes removed 3 positive. Lungs: Clear Incision: Clean and dry; lateral aspect under the arm has some small amount of necrosis BETZAIDA output less than 40 mL per day Questionable fungal infection under incision in the axilla Plan: Removed BETZAIDA drain Debridement of lateral aspect of incision with suture reinforcement appointment medical oncology appointment radiation oncology Nystatin applied to fungal infection follow up 2 weeks
== END ==
LOC: WWCWWP 08:25
PROVIDERS: ATTEND Surgery
DX: L76.82 Other postprocedural complications of skin and subcutaneous tissue (principal); Z90.11 Acquired absence of right breast and nipple; Z88.1 Allergy status to other antibiotic agents; Z88.5 Allergy status to narcotic agent; Z79.82 Long term (current) use of aspirin

== ENCOUNTER → 2023-05-06 | Outpatient (CLI) | payer MEDICARE ==
[2023-05-06 08:55] VITALS: BP 127/82; PULSE 76; RESP 16; TEMP 98.2
--- NOTE | 2023-05-06 09:13 | P.PN ---
Progress Note - Text Progress Note Date: 05/06/23 Radha is a 72-year-old white female status post right breast mastectomy and axillary node resection following a lumpectomy on which had positive margins. On her lumpectomy and sentinel node specimen she had 1 node positive for metastatic carcinoma and multiple margins involved. Therefore she underwent a right breast mastectomy and axillary node resection. Pathology revealed all margins negative. There was a residual 1 mm focus of tumor. Lymph nodes removed 4 nodes removed 3 positive. Lungs: Clear Incision: Clean and dry; Questionable fungal infection under incision in the axilla at this time well healed Plan: appointment medical oncology appointment radiation oncology Nystatin applied to fungal infection follow up 2 months CC: Dr. Mao, Dr. Burnett
== END ==
LOC: WWCWWP 08:34
PROVIDERS: ATTEND Surgery
DX: C50.411 Malignant neoplasm of upper-outer quadrant of right female breast (principal); Z90.11 Acquired absence of right breast and nipple; Z88.1 Allergy status to other antibiotic agents; Z88.5 Allergy status to narcotic agent; Z79.82 Long term (current) use of aspirin

== ENCOUNTER 2023-06-05 08:28 | Day surgery (SDC) | payer MEDICARE ==
[2023-06-04 13:00] VITALS: BMI 34.2
[2023-06-05 08:51] LABS: Glucose,Whole Blood 132 mg/dL (70-110)
[2023-06-05 09:03] VITALS: BP 140/63; PULSE 78; RESP 16; TEMP 98.2
[2023-06-05 09:15] LABS: African American GFR (CKD) >90 (>60 ml/min/1.73 sqM); Anion Gap 10 mmol/L; Blood Urea Nitrogen 20 mg/dL (7-17); Carbon Dioxide 25 mmol/L (22-30); Chloride 103 mmol/L (98-107); Glucose 140 mg/dL (74-99); Non-African American GFR(CKD) >90 (>60 ml/min/1.73 sqM); Potassium 3.8 mmol/L (3.5-5.1); Sodium 138 mmol/L (137-145)
[2023-06-05] MEDS ORDERED: LIDOCAINE 1% INJ 10MG/ML (5 ML VIAL-PF) SQ ONE (10:06)
--- NOTE | 2023-06-05 10:16 | P.PCN ---
Date of Procedure: 06/05/23 Preoperative Diagnosis: Breast cancer, IV access for chemotherapy Postoperative Diagnosis: Same Procedure(s) Performed: Left basilic vein PICC line placement under ultrasound and fluoroscopic guidance Anesthesia: local Surgeon: Jose Hickey Estimated Blood Loss (ml): 2 Pathology: none sent Condition: stable Disposition: PACU Description of Procedure: After written and informed consent was obtained the patient and all risks, benefits and competitions were described the patient was brought to the Department Head and laid in a supine position with his left arm outstretched on an armboard. The area of the left arm was prepped and draped in usual sterile fashion. Timeout was performed in normal fashion. Utilizing ultrasound the basilic vein was visualized and shown to be compressible without any visible thrombus. Under ultrasound guidance the basilic vein was then cannulated with a micropuncture needle and wire was placed under direct visualization of fluoroscopy. Introducer sheath was then placed. The catheter was measured and cut to the appropriate length which was 43 cm. The catheter was then guided through the breakaway sheath and the sheath was removed with good positioning was visualized under fluoroscopy. The catheter was pulled and flushed easily. It was then secured in place in normal fashion. Patient tolerated the procedure well was sent back to his room for recovery.
--- NOTE | 2023-06-05 15:50 | IR ---
EXAMINATION TYPE: IR cvc insert >=5 years DATE OF EXAM: 06/05/2023 FLUOROSCOPY CHEMO, 43CM, 0.3MIN FLUORO. 0.318 Gycm2. 10 images submitted.
== END 2023-06-05 10:27 | disposition home or self-care (01) ==
LOC: CATHCVL 08:28
PROVIDERS: ATTEND Surgery
DX: Z45.2 Encounter for adjustment and management of vascular access device (principal)
CPT/HCPCS: 36573; 80048; C1751; C1769; J2001

== ENCOUNTER 2023-06-15 05:07 | Observation (INO) | payer MEDICARE ==
[2023-06-15 05:59] LABS: HCT 34.6 % (34.0-46.0); HGB 12.2 gm/dL (11.4-16.0); MCH 30.7 pg (25.0-35.0); MCHC 35.3 g/dL (31.0-37.0); MCV 86.9 fL (80.0-100.0); Mean Platelet Volume 9.8; Platelet Count 110 k/uL (150-450); RBC 3.98 m/uL (3.80-5.40); RDW 13.2 % (11.5-15.5); WBC 2.7 k/uL (3.8-10.6)
[2023-06-15] MEDS ORDERED: SODIUM CHLORIDE 0.9% 1,000 ML IV STA (06:03)
[2023-06-15] MEDS ORDERED: ASPIRIN 81 MG PO STA (06:05)
--- NOTE | 2023-06-15 06:05 | ED ---
General Adult HPI - General Chief complaint: Chest Pain Stated complaint: Chest pain Time Seen by Provider: 06/15/23 05:27 Source: patient, EMS Mode of arrival: EMS - History of Present Illness Initial comments: Dictation was produced using [employer] dictation software. please excuse any grammatical, word or spelling errors. Chief Complaint: 72-year-old female with recent diagnosis of breast cancer presents with chest pressure History of Present Illness: This 72-year-old female presents emergency department for chest pressure. She had just started chemotherapy. She has indwelling PICC line catheter in her left upper extremity. Patient had some dull chest pressure to her substernal chest wall sleeping at around 1 AM. She states that the symptoms woke her up out of bed. Not sure if this is because of the chemotherapy. States she also feels really weak. Denies any radiation of symptoms down the arm or towards jaw. No associated diaphoresis however she did feel clammy hands Patient denies any cardiac history. States that she does not have any symptoms currently. The ROS documented in this emergency department record has been reviewed and c onfirmed by me. Those systems with pertinent positive or negative responses have been documented in the HPI. All other systems are other negative and/or noncontributory. - Related Data Home Medications Medication Instructions Recorded Confirmed Insulin Glargine,Hum.rec.anlog 55 unit SQ QAM 04/22/19 06/05/23 [Lantus Solostar Pen] Insulin Lispro [humaLOG Kwikpen] 0 unit SQ TID-W/MEALS 04/22/19 06/04/23 lisinopriL [Zestril] 10 mg PO QAM 04/22/19 06/04/23 Levothyroxine Sodium [Synthroid] 137 mcg PO QAM 06/08/19 06/04/23 Meclizine [Antivert] 25 mg PO DAILY PRN 06/08/19 06/05/23 Metoprolol Succinate (ER) [Toprol 25 mg PO QAM 06/08/19 06/04/23 XL] Atorvastatin [Lipitor] 80 mg PO QAM 12/04/20 06/04/23 Cholecalciferol [Vitamin D3 (25 25 mcg PO BID 12/04/20 06/04/23 Mcg = 1000 Iu)] Tirzepatide [Mounjaro] 5 mg SQ KILLIAN 12/17/22 06/05/23 Aspirin 81 mg PO QAM 02/18/23 06/04/23 Ibuprofen [Advil] 800 mg PO Q8HR PRN 03/26/23 06/05/23 Previous Rx's Medication Instructions Recorded Nystatin/Triamcin 1 applic TOPICAL BID #30 gram 04/21/23 [Nystatin-Triamcinolone Cream] Allergies Allergy/AdvReac Type Severity Reaction Status Date / Time acetaminophen [From Tylenol] AdvReac Nausea & Verified 06/15/23 05:15 Vomiting hydrocodone [From [place]] AdvReac Nausea & Verified 06/15/23 05:15 Vomiting Review of Systems ROS Statement: Those systems with pertinent positive or pertinent negative responses have been documented in the HPI. ROS Other: All systems not noted in ROS Statement are negative. Past Medical History Past Medical History: Asthma, Diabetes Mellitus, Eye Disorder, GERD/Reflux, Hyperlipidemia, Hypertension, Pneumonia, Thyroid Disorder Additional Past Medical History / Comment(s): meniere's disease, fuch's dystrophy bilateral eyes, no current RX for asthma, INSULIN DEPENDENT. Right breast cancer History of Any Multi-Drug Resistant Organisms: None Reported Date of last positivie culture/infection: approx 1999 MDRO Source:: stomach/ABDOMEN Past Surgical History: Bladder Surgery, Breast Surgery, Heart Catheterization, Hysterectomy, Tonsillectomy Additional Past Surgical History / Comment(s): Breast BIOPSY - RIGHT , colonoscopy, bladder suspension. Cataract surgery, HIATAL HERNIA REPAIR , RT MASTECTOMY Past Anesthesia/Blood Transfusion Reactions: No Reported Reaction Additional Past Anesthesia/Blood Transfusion Reaction / Comment(s): hx of menieres,VERTIGO Past Psychological History: No Psychological Hx Reported Smoking Status: Never smoker - Past Family History Father Family Medical History: Diabetes Mellitus Additional Family Medical History / Comment(s): Father of diabetic complications in his early 50s. Mother Family Medical History: Cancer Additional Family Medical History / Comment(s): Mother of breast cancer at the age of 50yrs. General Exam - General Exam Comments Initial Comments: PHYSICAL EXAM: General Impression: Alert and oriented x3, not in acute distress HEENT: Normocephalic atraumatic, extra-ocular movements intact, pupils equal and reactive to light bilaterally, mucous membranes moist. Cardiovascular: Heart regular rate and rhythm Chest: Able to complete full sentences, no retractions, no tachypnea Abdomen: abdomen soft, non-tender, non-distended, no organomegaly Musculoskeletal: Pulses present and equal in all extremities, no peripheral edema Motor: no focal deficits noted Neurological: CN II-XII grossly intact, no focal motor or sensory deficits noted Skin: Intact with no visualized rashes Psych: Normal affect and mood Course Vital Signs 06/15/23 06/15/23 06/15/23 05:11 05:17 05:27 Temperature 99.0 F Pulse Rate 102 H 90 Pulse Rate [ 102 H Pulse Oximetery ] Respiratory 18 Rate Blood Pressure 183/88 O2 Sat by Pulse 97 Oximetry 06/15/23 06:27 Temperature Pulse Rate 56 L Pulse Rate [ Pulse Oximetery ] Respiratory 19 Rate Blood Pressure 143/83 O2 Sat by Pulse 96 Oximetry EKG Findings - EKG Comments: EKG Findings:: My EKG interpretation: Ventricular rate 100, sinus tachycardia,. 156, QRS 70, QTc 44. No MN prolongation, no QTC prolongation, no ST or T-wave changes noted. Overall, this EKG is unremarkable Medical Decision Making - Medical Decision Making Was pt. sent in by a medical professional or institution (, PA, AVIATION ELECTRICIAN, urgent care, hospital, or [facility]...) When possible be specific @ -No Did you speak to anyone other than the patient for history (EMS, parent, family, police, friend...)? What history was obtained from this source @ -No Did you review nursing and triage notes (agree or disagree)? Why? @ -I reviewed and agree with nursing and triage notes Were old charts reviewed (outside hosp., previous admission, EMS record, old EKG, old radiological studies, urgent care reports/EKG's, [facility] records)? Report findings @ -Cardiac cath was reviewed from March 2019 showing the patient has history of nonobstructive coronary artery disease involving the left anterior descending artery Differential Diagnosis (chest pain, altered mental status, abdominal pain women, abdominal pain men, vaginal bleeding, musculoskeletal, weakness, fever, dyspnea, syncope, headache, dizziness, GI bleed, back pain, seizure, CVA, palpatations, m ental health)? @ -Differential Chest Pain: Stable Angina, Unstable Angina, STEMI, NSTEMI Aortic Dissection, Pneumothorax, Musculoskeletal, Esophageal Spasm GERD, Cholecystitis, Pancreatitis, Zoster, this is not meant to be an all-inclusive list. EKG interpreted by me (3pts min.). @ -See above X-rays interpreted by me (1pt min.). @ -Left lung opacity CT interpreted by me (1pt min.). @ -None done U/S interpreted by me (1pt. min.). @ -None done What testing was considered but not performed or refused? (CT, X-rays, U/S, labs)? Why? @ -None What meds were considered but not given or refused? Why? @ -None Did you discuss the management of the patient with other professionals (professionals i.e. , PA, AVIATION ELECTRICIAN, lab, RT, psych nurse, social work lecturer, distance learning technician, teacher, special police officer, case work aide)? Give summary @ -Case discussed with hospitalist for admission. They requested a CT of the chest be ordered for evaluation of abnormal chest x-ray Was smoking cessation discussed for >3mins.? @ -No Was critical care preformed (if so, how long)? @ -No Were there social determinants of health that impacted care today? How? (Homelessness, low income, unemployed, alcoholism, drug addiction, transportatio n, low edu. Level, literacy, decrease access to med. care, residential, rehab)? @ -No Was there de-escalation of care discussed even if they declined (Discuss DNR or withdrawal of care, Hospice)? DNR status @ -No What co-morbidities impacted this encounter? (DM, HTN, Smoking, COPD, CAD, Cancer, CVA, ARF, Chemo, Hep., AIDS, mental health diagnosis, sleep apnea, morbid obesity)? @ -None Was patient admitted / discharged? Hospital course, mention meds given and route, prescriptions, significant lab abnormalities, going to OR and other pertinent info. @ -72-year-old female presents emergency department for atypical chest pain with typical features. She has a recent diagnosis of breast cancer undergoing chemotherapy. Patient has history of coronary artery disease seen on prior catheterization from 2019. Patient denies any symptoms at the bedside. EKG is unremarkable. Laboratory evaluation obtained found to be unremarkable. Chest x-ray shows a left upper lung opacity of unclear etiology. Patient not having any active chest or respiratory symptoms at the bedside.. Patient reevaluated at the bedside so asymptomatic and well-appearing at the bedside. Patient will be admitted to observation unit with consultation cardiology, cardiac monitoring, oncology consultation. Undiagnosed new problem with uncertain prognosis? @ -No Drug Therapy requiring intensive monitoring for toxicity (Heparin, Nitro, Insulin, Cardizem)? @ -No Were any procedures done? @ -No Diagnosis/symptom? Acute, or Chronic, or Acute on Chronic? Uncomplicated (without systemic symptoms) or Complicated (systemic symptoms)? @ -Chest pain Side effects of treatment? @ -No Exacerbation, Progression, or Severe Exacerbation? @ -No Poses a threat to life or bodily function? How? (Chest pain, [place], PR, pneumonia, PE, COPD, DKA, ARF, appy, cholecystitis, CVA, Diverticulitis, Homicidal, Suicidal, threat to staff... and all critical care pts) @ -yes - Lab Data Result diagrams: 06/15/23 05:29 06/15/23 05:29 Lab Results 06/15/23 06/15/23 06/15/23 Range/Units 05:29 05:29 05:29 WBC 2.7 L (3.8-10.6) k/uL RBC 3.98 (3.80-5.40) m/uL Hgb 12.2 (11.4-16.0) gm/dL Hct 34.6 (34.0-46.0) % MCV 86.9 (80.0-100.0) fL MCH 30.7 (25.0-35.0) pg MCHC 35.3 (31.0-37.0) g/dL RDW 13.2 (11.5-15.5) % Plt Count 110 L (150-450) k/uL MPV 9.8 PT 10.9 (10.0-12.5) sec INR 1.0 (<1.2) APTT 22.3 (22.0-30.0) sec Sodium 133 L (137-145) mmol/L Potassium 3.7 (3.5-5.1) mmol/L Chloride 107 (98-107) mmol/L Carbon Dioxide 21 L (22-30) mmol/L Anion Gap 5 mmol/L BUN 7 (7-17) mg/dL Creatinine 0.41 L (0.52-1.04) mg/dL Est GFR (CKD-EPI)AfAm >90 (>60 ml/min/1.73 sqM) Est GFR (CKD-EPI)NonAf >90 (>60 ml/min/1.73 sqM) Glucose 143 H (74-99) mg/dL Calcium 7.8 L (8.4-10.2) mg/dL Magnesium 1.5 L (1.6-2.3) mg/dL Total Bilirubin 1.3 (0.2-1.3) mg/dL AST 21 (14-36) U/L ALT 16 (4-34) U/L Alkaline Phosphatase 93 (38-126) U/L Troponin I (0.000-0.034) ng/mL Total Protein 5.4 L (6.3-8.2) g/dL Albumin 3.1 L (3.5-5.0) g/dL 06/15/23 Range/Units 05:29 WBC (3.8-10.6) k/uL RBC (3.80-5.40) m/uL Hgb (11.4-16.0) gm/dL Hct (34.0-46.0) % MCV (80.0-100.0) fL MCH (25.0-35.0) pg MCHC (31.0-37.0) g/dL RDW (11.5-15.5) % Plt Count (150-450) k/uL MPV PT (10.0-12.5) sec INR (<1.2) APTT (22.0-30.0) sec Sodium (137-145) mmol/L Potassium (3.5-5.1) mmol/L Chloride (98-107) mmol/L Carbon Dioxide (22-30) mmol/L Anion Gap mmol/L BUN (7-17) mg/dL Creatinine (0.52-1.04) mg/dL Est GFR (CKD-EPI)AfAm (>60 ml/min/1.73 sqM) Est GFR (CKD-EPI)NonAf (>60 ml/min/1.73 sqM) Glucose (74-99) mg/dL Calcium (8.4-10.2) mg/dL Magnesium (1.6-2.3) mg/dL Total Bilirubin (0.2-1.3) mg/dL AST (14-36) U/L ALT (4-34) U/L Alkaline Phosphatase (38-126) U/L Troponin I <0.012 (0.000-0.034) ng/mL Total Protein (6.3-8.2) g/dL Albumin (3.5-5.0) g/dL Disposition Clinical Impression: Chest pain Disposition: ADMITTED IP TO THIS [facility] Condition: Fair Referrals: Bernardo Mao DO [Primary Care Provider] - 1-2 days Decision Time: 06:40
[2023-06-15 06:07] LABS: ALT 16 U/L (4-34); AST 21 U/L (14-36); African American GFR (CKD) >90 (>60 ml/min/1.73 sqM); Albumin 3.1 g/dL (3.5-5.0); Alkaline Phosphatase 93 U/L (38-126); Anion Gap 5 mmol/L; Blood Urea Nitrogen 7 mg/dL (7-17); Calcium 7.8 mg/dL (8.4-10.2); Carbon Dioxide 21 mmol/L (22-30); Chloride 107 mmol/L (98-107); Glucose 143 mg/dL (74-99); Magnesium 1.5 mg/dL (1.6-2.3); Non-African American GFR(CKD) >90 (>60 ml/min/1.73 sqM); Potassium 3.7 mmol/L (3.5-5.1); Sodium 133 mmol/L (137-145); Total Bilirubin 1.3 mg/dL (0.2-1.3); Total Protein 5.4 g/dL (6.3-8.2)
[2023-06-15 06:15] LABS: Partial Thromboplastin Time 22.3 sec (22.0-30.0); Prothrombin Time 10.9 sec (10.0-12.5)
[2023-06-15 06:32] LABS: Neutrophils % (M) 12 %
[2023-06-15] MEDS ORDERED: NITROGLYCERIN SL TABS 0.4 MG TAB SUBLINGUAL PRN (06:33)
--- NOTE | 2023-06-15 06:33 | XR ---
EXAM: XR Chest, 2 Views CLINICAL HISTORY: Chest Pain TECHNIQUE: Frontal and lateral views of the chest. COMPARISON: Chest x-ray dated 04/22/2019. FINDINGS: Limitations: Patient is rotated towards the left, which limits evaluation. Lungs: Left upper lung zone patchy opacity. Pleural space: Unremarkable. No pneumothorax. Heart: The heart is at the upper limits of normal/mildly enlarged. Mediastinum: Unremarkable. Normal mediastinal contour. Bones/joints: Exaggerated kyphosis of the thoracic spine is again noted. No acute fracture. Tubes, lines and devices: Left-sided PICC line with tip overlying the SVC/right atrial junction. IMPRESSION: 1. Left upper lung zone patchy opacity. PA and lateral views of the chest recommended for further evaluation. 2. Left-sided PICC line with tip overlying the SVC/right atrial junction. 3. The heart is at the upper limits of normal/mildly enlarged.
[2023-06-15 06:37] LABS: Band Neutrophils % 16 %; Lymphocytes # (M) 1.24 k/uL (1.0-4.8); Monocytes # (M) 0.73 k/uL (0-1.0); Nucleated Red Blood Cells 0 /100 WBC (0-0); Total Cells Counted 200
[2023-06-15] MEDS ORDERED: RX INFO: IV CONTRAST WAS GIVEN 1 EACH MISC MISCELLANE PRN (06:40)
[2023-06-15] MEDS ORDERED: MECLIZINE 25 MG TAB PO PRN (07:35)
[2023-06-15] MEDS ORDERED: DEXTROSE 50% SYRINGE 50 ML IVP PRN ×2 (07:37)
[2023-06-15] MEDS: MAGNESIUM SULFATE-D5W PMX 1 GM in DEXTROSE/WATER 1 100ML.BAG IVPB SCH ×2 (07:57→09:04)
[2023-06-15] MEDS: HEPARIN SODIUM,PORCINE 5,000 UNIT/ML 1 ML VIAL SQ SCH ×2 (08:07→15:49)
--- NOTE | 2023-06-15 08:08 | CT ---
EXAMINATION TYPE: CT chest w con DATE OF EXAM: 06/15/2023 COMPARISON: Radiograph same date and prior PET/CT 03/12/2023 HISTORY: 72-year-old female abnormal chest xray in pacs TECHNIQUE: Contiguous axial scanning of the chest after the administration of 100 mL of Isovue 300. Coronal/sagittal reconstructions performed. CT DLP: 391.4mGycm. Automatic exposure control utilized for a dose reduction. FINDINGS: Left PICC tip at the mid SVC. Heart normal size without pericardial effusion. Circumflex coronary artery calcifications are present . Aorta normal caliber with bovine configuration to the aortic arch. No thoracic lymphadenopathy by CT size criteria. Mild diffuse bronchial wall thickening. Some strandy atelectasis of the lower lungs. No consolidation or pleural effusion. Visualized upper abdomen shows a small hiatal hernia with postsurgical change at the GE junction like ly reflecting prior hiatal hernia repair. Calcified granuloma spleen. Prominent parapelvic cyst redem onstrated left kidney. Small gallstone. Patient is status post right mastectomy. Bones: Accentuated midthoracic kyphosis. DISH mid to lower thoracic spine. IMPRESSION: 1. The patient is status post right mastectomy. Left PICC tip in the mid SVC level. 2. Mild diffuse bronchial wall thickening may be chronic for the patient. Consider bronchitis or asth ma. There is no CT correlate for the left upper lobe density seen on radiograph of the same day. Find ings likely reflected external artifact. 3. Status post Ethan fundoplication with recurrent small hiatal hernia. Correlate for any recurrent symptoms. Small gallstone.
[2023-06-15] MEDS: ASPIRIN 81 MG PO SCH (09:05)
[2023-06-15] MEDS: CHOLECALCIFEROL 25 MCG (1000 IU) TABLET PO SCH ×2 (09:06→22:17)
[2023-06-15] MEDS: ATORVASTATIN 80 MG TAB PO SCH (09:06)
[2023-06-15] MEDS: METOPROLOL SUCCINATE (ER) 25 MG TAB.ER.24H PO SCH (09:06)
[2023-06-15] MEDS: TRIAMCINOLONE 0.1% CREAM 80 GM TUBE TOPICAL SCH ×2 (09:07→22:18)
[2023-06-15] MEDS: lisinopriL 10 MG TAB PO SCH (09:07)
[2023-06-15] MEDS: NYSTATIN 100,000UNIT/GM CREAM 30 GM TUBE TOPICAL SCH ×2 (09:07→22:18)
[2023-06-15] MEDS: LEVOTHYROXINE 137 MCG TAB PO SCH (09:08)
[2023-06-15 09:14] LABS: Glucose,Whole Blood 140 mg/dL (70-110)
[2023-06-15] MEDS: INSULIN DETEMIR (LEVEMIR) 100 UNIT/ML SYR SQ SCH (09:15)
--- NOTE | 2023-06-15 10:30 | P.HPIM ---
History of Present Illness H&P Date: 06/15/23 History of Presenting Illness: Patient is a very pleasant 72-year-old female with a past medical history of hypertension, hyperlipidemia, insulin-dependent diabetes mellitus, hypo thyroidism, Mnire's disease, and recently diagnosed breast cancer status post right mastectomy currently undergoing chemotherapy. She presented to the emergency department with a chief complaint of chest pain/pressure. Patient reported awakening from sleep around 1 AM with sensation of pain/pressure to substernal chest radiating into her left anterior chest. Patient reports just starting her chemotherapy treatment and was unsure if the symptoms are associated. Patient reports her right mastectomy was in March 2023 and had her first chemotherapeutic treatment was Thursday06/08/23 and she states her side effects from this treatment was "the worst thing I've ever experienced in my life." Patient reports for the first 2 days she had chest pressure accompanied by severe shortness of breath, nausea, and back pain. She reports she slowly began to feel better, until this morning around 1 AM when she awoken with the pain/pressure sensation to her midsternal chest. She denies having any headache, lightheadedness, dizziness, changes in vision or hearing, shortness of breath, cough or congestion, or experiencing any numbness/tingling/weakness in her extremities. She denies experiencing palpitations but does report that her heart felt funny.She underwent full evaluation in the emergency department. Vital signs upon arrival show blood pressure hypertensive at 183/88, heart rate 102, respiratory rate 18, temp 99.0F, and SpO2 of 97% on room air. EKG was completed showing sinus tachycardia at 100 bpm with no significant T-wave or ST abnormalities showing no signs of acute ischemia. Chest x-ray completed in radiology report reviewed showing left upper lung opacity with a left-sided PICC line with tip overlying the SVC/right atrial junction and mild cardiomegaly. Labs completed and reviewed. CBC showing bicytopenia with WBC count of 2.7 and platelet count of 110, neutrophils also low at 0.70.. BMP showing mild hyponatremia with sodium of 133 and hypocarbia with bicarbonate of 21. Magnesium low at 1.5. Troponin negative at less than 0.012. Patient was admitted under our services with consultation to cardiology and oncology. Review of systems: Pertinent positives and negatives as discussed in HPI, a complete review of systems was performed and all other systems are negative. Physical exam: Vital signs reviewed and stable. General: Nontoxic, no distress and appears stated age. Derm: Skin warm and dry, normal coloration for ethnicity. Head: Atraumatic, normocephalic and symmetric. Eyes: EOMs intact, no lid lag, and anicteric sclera Mouth: no lip lesions, mucus membranes moist Cardiovascular: regular rate and rhythm with normal S1S2, no murmur, positive posterior tibial pulses bilaterally, and cap refill < 2 seconds. Chest/Lungs: Respirations even, regular, and unlabored on room air. Lungs CTA bilaterally, no rhonchi, no rales, no wheezing, and no accessory muscle usage. Right-sided mastectomy. Abdominal: soft, nontender to palpation, no guarding, no appreciable organomegaly Ext: ROM intact. No gross muscle atrophy, no edema, no contractures. PICC line left upper extremity. Neuro: Speech clear, face symmetrical and CN II-XII grossly intact with no noted focal neuro deficits Psych: Alert and oriented to person, place, time, and situation. Appropriate and pleasant affect. Assessment and Plan of Care: Chest pain, rule out acute coronary event Hypertension Hyperlipidemia -Cardiology consulted, appreciate further recommendations -Telemetry monitoring -Trend troponins -Cardiac diet -Continue cardiac medication regimen with Aspirin 81 mg daily, atorvastatin 80 mg daily, lisinopril 10 mg daily and metoprolol 25 mg daily -Lipid profile with a.m. labs. -Echocardiogram to be completed Insulin-dependent diabetes mellitus Continue Levemir 55 units daily and patient placed on glycemic protocol with NovoLog sliding scale. Hemoglobin A1c to be obtained Hypothyroidism Continue daily medication regimen with levothyroxine 137 g daily. Mnire's disease Continue meclizine 25 mg daily as needed for vertigo. Data and imaging reviewed As stated above in HPI. The patient is admitted with an anticipated less than 2 midnight stay for evaluation of chest pain. CODE STATUS: Full code DVT prophylaxis: Heparin Anticipated discharge date: 24-[address]: Home Patient was seen independently by Nurse Practitioner. This document was prepared using Chinese Online dictation software. Please allow for errors in android ios developer while rare they do occur. I reviewed the documentation as provided by the LAQUITA above, who is the original author of this note. I agree with the documented assessment and plan, with the following changes: none Past Medical History Past Medical History: Asthma, Diabetes Mellitus, Eye Disorder, GERD/Reflux, Hyperlipidemia, Hypertension, Pneumonia, Thyroid Disorder Additional Past Medical History / Comment(s): meniere's disease, fuch's dystrophy bilateral eyes, no current RX for asthma, INSULIN DEPENDENT. Right breast cancer History of Any Multi-Drug Resistant Organisms: None Reported Date of last positivie culture/infection: approx 1999 MDRO Source:: stomach/ABDOMEN Past Surgical History: Bladder Surgery, Breast Surgery, Heart Catheterization, Hysterectomy, Tonsillectomy Additional Past Surgical History / Comment(s): Breast BIOPSY - RIGHT , colonoscopy, bladder suspension. Cataract surgery, HIATAL HERNIA REPAIR , RT MASTECTOMY Past Anesthesia/Blood Transfusion Reactions: No Reported Reaction Additional Past Anesthesia/Blood Transfusion Reaction / Comment(s): hx of menieres,VERTIGO Past Psychological History: No Psychological Hx Reported Smoking Status: Never smoker - Past Family History Father Family Medical History: Diabetes Mellitus Additional Family Medical History / Comment(s): Father of diabetic complications in his early 50s. Mother Family Medical History: Cancer Additional Family Medical History / Comment(s): Mother of breast cancer at the age of 50yrs. Medications and Allergies Home Medications Medication Instructions Recorded Confirmed Type Insulin Glargine,Hum.rec.anlog 55 unit SQ DAILY 04/22/19 06/15/23 History [Lantus Solostar Pen] Insulin Lispro [humaLOG Kwikpen] See Protocol SQ TID-W/MEALS 04/22/19 06/15/23 History lisinopriL [Zestril] 10 mg PO DAILY 04/22/19 06/15/23 History Meclizine [Antivert] 25 mg PO DAILY PRN 06/08/19 06/15/23 History Metoprolol Succinate (ER) [Toprol 25 mg PO DAILY 06/08/19 06/15/23 History XL] Atorvastatin [Lipitor] 80 mg PO DAILY 12/04/20 06/15/23 History Cholecalciferol [Vitamin D3 (25 25 mcg PO BID 12/04/20 06/15/23 History Mcg = 1000 Iu)] Tirzepatide [Mounjaro] 5 mg SQ KILLIAN 12/17/22 06/15/23 History Aspirin 81 mg PO DAILY 02/18/23 06/15/23 History Ibuprofen [Advil] 800 mg PO Q8HR PRN 03/26/23 06/15/23 History Nystatin/Triamcin 1 applic TOPICAL BID #30 gram 04/21/23 06/15/23 Rx [Nystatin-Triamcinolone Cream] LORazepam [Ativan] 0.5 - 1 mg PO Q6H PRN 06/15/23 06/15/23 History Levothyroxine Sodium [Synthroid] 137 mcg PO DAILY 06/15/23 06/15/23 History Ondansetron [Zofran] 4 - 8 mg PO Q4-6H PRN 06/15/23 06/15/23 History Allergies Allergy/AdvReac Type Severity Reaction Status Date / Time acetaminophen [From Tylenol] AdvReac Nausea & Verified 06/15/23 07:06 Vomiting hydrocodone [From [place]] AdvReac Nausea & Verified 06/15/23 07:06 Vomiting Physical Exam Osteopathic Statement: *. No significant issues noted on an osteopathic structural exam other than those noted in the History and Physical/Consult. Vitals: Vital Signs Temp Pulse Pulse Resp BP Pulse Ox 06/15/23 07:28 82 18 153/63 96 06/15/23 06:52 92 17 172/70 100 06/15/23 05:27 90 06/15/23 05:17 102 H 06/15/23 05:11 99.0 F 102 H 18 183/88 97 Intake and Output 06/14/23 06/15/23 06/15/23 22:59 06:59 14:59 Other: Weight 74.843 kg Results CBC & Chem 7: 06/15/23 05:29 06/15/23 05:29 Labs: Abnormal Lab Results - Last 24 Hours (Table) 06/15/23 06/15/23 Range/Units 05:29 05:29 WBC 2.7 L (3.8-10.6) k/uL Plt Count 110 L (150-450) k/uL Neutrophils # (Manual) 0.70 L (1.3-7.7) k/uL Sodium 133 L (137-145) mmol/L Carbon Dioxide 21 L (22-30) mmol/L Creatinine 0.41 L (0.52-1.04) mg/dL Glucose 143 H (74-99) mg/dL Calcium 7.8 L (8.4-10.2) mg/dL Magnesium 1.5 L (1.6-2.3) mg/dL Total Protein 5.4 L (6.3-8.2) g/dL Albumin 3.1 L (3.5-5.0) g/dL
--- NOTE | 2023-06-15 10:57 | P.CRDCN ---
History of Present Illness Consult date: 06/15/23 Consult reason: chest pain History of present illness: History of Present Illness: This is a 80-year-old female patient of Dr. Tristin Evans with past medical history of mild nonobstructive coronary artery disease, hypertension, diabetes, dyslipidemia. She was last seen in the office on 02/19/2023 for preop clearance for right breast lumpectomy which occurred in February. 1 month later, patient underwent right-sided mastectomy. Patient apparently started chemotherapy on Thursday. We have been asked to evaluate the patient for chest pain. Patient states that she came into the hospital due to chest pain and back pain in the lower area. It started before she went to bed last night. No pain with deep inspiration. Pain is coming and going. Patient denies shortness of breath. She does have lightheadedness and dizziness. Patient is seen today in the emergency center waiting for a bed on the observation unit. She is status post 1 L of IV fluids and magnesium replacement. EKG sinus rhythm with no acute ST changes. Chest x-ray: Left upper lung zone patchy opacity. Left-sided PICC line. Heart is upper limits of normal. CT of the chest with contrast: S/p right mastectomy. Left PICC line. Mild diffuse bronchial wall thickening may be chronic for the patient. Consider bronchitis or asthma. No CT correlation for the left upper lobe density seen on chest x-ray. Findings likely reflected external artifact. Status post Niesen fundoplication with recurrent small hiatal hernia. WBC 2.7, hemoglobin 12.2, platelet count 110. INR 1.0. Sodium 133, potassium 3.7, CO2 21, BUN 7 creatinine 0.41. Blood sugar 143. Troponin negative x 2. Magnesium 1.5. Home cardiac medications: Aspirin 81 mg daily, atorvastatin 80 mg daily, lisin opril 10 mg daily, Toprol-XL 25 mg daily, also on levothyroxine 137 mcg daily. Review Of Systems: At the time of my evaluation: Constitutional: No fever, no chills. No weakness, fatigue or lethargy. EENT: No headache. No dizziness. Lungs: No shortness of breath, cough, no sputum production. No wheezing. Cardiovascular: Reports chest pain, no lower extremity edema. No palpitations. No paroxysmal nocturnal dyspnea. No orthopnea. No lightheadedness or dizziness. No syncopal episodes. Abdominal: No abdominal pain. No nausea, vomiting. No diarrhea. No constipation. No bloody or tarry stools. Genitourinary: No dysuria.. No urinary retention. Musculoskeletal: No myalgias. No muscle weakness, no frequent falls. Reports back pain. No neck pain. Integumentary: No wounds. No rash. No unusual bruising. Neurologic: No aphasia. No facial droop. No change in mentation. No head injury. No headache. Physical examination: Gen: This is a 72-year-old female. She appears to be in no acute distress. VS: reviewed 137/78, heart rate 74, pulse ox 97% on room air. HEENT: Head is atraumatic, normocephalic. Pupils equal, round. Sclerae is anicteric. NECK: Supple. No JVD. . LUNGS: Clear to auscultation. No wheezes or rhonchi. No intercostal retractions. HEART: Regular rate and rhythm. No murmur. ABDOMEN: Soft No tenderness. EXTREMITIES: No pedal edema. No calf tenderness. NEUROLOGICAL: Patient is awake, alert and oriented x3. Assessment: Atypical chest pain, rule out non-ST elevated FL History of mild nonobstructive coronary artery disease Hypertension Diabetes Dyslipidemia Right-sided breast cancer status post mastectomy and start chemotherapy on Thursday Plan: Resume patient's home cardiac medications Obtain repeat troponin to complete set of 3 Obtain 2-D echocardiogram and Doppler study to assess cardiac structure and function Further recommendations to follow based upon clinical course Thank you kindly for this consultation. Nurse practitioner note has been reviewed, I agree with documented findings and plan of care. Patient was seen and examined. Past Medical History Past Medical History: Asthma, Diabetes Mellitus, Eye Disorder, GERD/Reflux, Hyperlipidemia, Hypertension, Pneumonia, Thyroid Disorder Additional Past Medical History / Comment(s): meniere's disease, fuch's dystrophy bilateral eyes, no current RX for asthma, INSULIN DEPENDENT. Right breast cancer History of Any Multi-Drug Resistant Organisms: None Reported Date of last positivie culture/infection: approx 1999 MDRO Source:: stomach/ABDOMEN Past Surgical History: Bladder Surgery, Breast Surgery, Heart Catheterization, Hysterectomy, Tonsillectomy Additional Past Surgical History / Comment(s): Breast BIOPSY - RIGHT , colonoscopy, bladder suspension. Cataract surgery, HIATAL HERNIA REPAIR , RT MASTECTOMY Past Anesthesia/Blood Transfusion Reactions: No Reported Reaction Additional Past Anesthesia/Blood Transfusion Reaction / Comment(s): hx of menieres,VERTIGO Past Psychological History: No Psychological Hx Reported Smoking Status: Never smoker - Past Family History Father Family Medical History: Diabetes Mellitus Additional Family Medical History / Comment(s): Father of diabetic com plications in his early 50s. Mother Family Medical History: Cancer Additional Family Medical History / Comment(s): Mother of breast cancer at the age of 50yrs. Medications and Allergies Home Medications Medication Instructions Recorded Confirmed Type Insulin Glargine,Hum.rec.anlog 55 unit SQ DAILY 04/22/19 06/15/23 History [Lantus Solostar Pen] Insulin Lispro [humaLOG Kwikpen] See Protocol SQ TID-W/MEALS 04/22/19 06/15/23 History lisinopriL [Zestril] 10 mg PO DAILY 04/22/19 06/15/23 History Meclizine [Antivert] 25 mg PO DAILY PRN 06/08/19 06/15/23 History Metoprolol Succinate (ER) [Toprol 25 mg PO DAILY 06/08/19 06/15/23 History XL] Atorvastatin [Lipitor] 80 mg PO DAILY 12/04/20 06/15/23 History Cholecalciferol [Vitamin D3 (25 25 mcg PO BID 12/04/20 06/15/23 History Mcg = 1000 Iu)] Tirzepatide [Mounjaro] 5 mg SQ KILLIAN 12/17/22 06/15/23 History Aspirin 81 mg PO DAILY 02/18/23 06/15/23 History Ibuprofen [Advil] 800 mg PO Q8HR PRN 03/26/23 06/15/23 History Nystatin/Triamcin 1 applic TOPICAL BID #30 gram 04/21/23 06/15/23 Rx [Nystatin-Triamcinolone Cream] LORazepam [Ativan] 0.5 - 1 mg PO Q6H PRN 06/15/23 06/15/23 History Levothyroxine Sodium [Synthroid] 137 mcg PO DAILY 06/15/23 06/15/23 History Ondansetron [Zofran] 4 - 8 mg PO Q4-6H PRN 06/15/23 06/15/23 History Allergies Allergy/AdvReac Type Severity Reaction Status Date / Time acetaminophen [From Tylenol] AdvReac Nausea & Verified 06/15/23 07:06 Vomiting hydrocodone [From [place]] AdvReac Nausea & Verified 06/15/23 07:06 Vomiting Physical Exam Vitals: Vital Signs Temp Pulse Pulse Resp BP Pulse Ox 06/15/23 07:28 82 18 153/63 96 06/15/23 06:52 92 17 172/70 100 06/15/23 05:27 90 06/15/23 05:17 102 H 06/15/23 05:11 99.0 F 102 H 18 183/88 97 Intake and Output 06/14/23 06/15/23 06/15/23 22:59 06:59 14:59 Other: Weight 74.843 kg Results 06/15/23 05:29 06/15/23 05:29 Cardiac Enzymes 06/15/23 06/15/23 Range/Units 05:29 05:29 AST 21 (14-36) U/L Troponin I <0.012 (0.000-0.034) ng/mL Coagulation 06/15/23 Range/Units 05:29 PT 10.9 (10.0-12.5) sec APTT 22.3 (22.0-30.0) sec CBC 06/15/23 Range/Units 05:29 WBC 2.7 L (3.8-10.6) k/uL RBC 3.98 (3.80-5.40) m/uL Hgb 12.2 (11.4-16.0) gm/dL Hct 34.6 (34.0-46.0) % Plt Count 110 L (150-450) k/uL Comprehensive Metabolic Panel 06/15/23 Range/Units 05:29 Sodium 133 L (137-145) mmol/L Potassium 3.7 (3.5-5.1) mmol/L Chloride 107 (98-107) mmol/L Carbon Dioxide 21 L (22-30) mmol/L BUN 7 (7-17) mg/dL Creatinine 0.41 L (0.52-1.04) mg/dL Glucose 143 H (74-99) mg/dL Calcium 7.8 L (8.4-10.2) mg/dL AST 21 (14-36) U/L ALT 16 (4-34) U/L Alkaline Phosphatase 93 (38-126) U/L Total Protein 5.4 L (6.3-8.2) g/dL Albumin 3.1 L (3.5-5.0) g/dL Current Medications Generic Name Dose Route Start Last Admin Trade Name Freq PRN Reason Stop Dose Admin Aspirin 81 mg 06/15/23 09:00 Aspirin 81 Mg PO DAILY [facility] Atorvastatin Calcium 80 mg 06/15/23 09:00 Atorvastatin 80 Mg Tab PO DAILY [facility] Cholecalciferol 25 mcg 06/15/23 09:00 Cholecalciferol 25 Mcg (1000 Iu) Tablet PO BID [facility] Dextrose/Water 25 ml 06/15/23 07:37 Dextrose 50% Syringe 50 Ml IVP PER PROTOCOL PRN Hypoglycemia Protocol Dextrose/Water 50 ml 06/15/23 07:37 Dextrose 50% Syringe 50 Ml IVP PER PROTOCOL PRN Hypoglycemia Protocol Magnesium Sulfate/Dextrose 1 100 mls @ 100 mls/hr 06/15/23 08:00 gm/ IV Solution IVPB 06/15/23 09:59 Q1H [facility] Insulin Aspart 0 unit 06/15/23 12:30 Insulin Aspart (Novolog) 100 Unit/Ml Vial SQ ACHS [facility] Protocol Insulin Detemir 55 unit 06/15/23 09:00 Insulin Detemir (Levemir) 100 Unit/Ml Syr SQ DAILY [facility] Levothyroxine Sodium 137 mcg 06/15/23 09:00 Levothyroxine 137 Mcg Tab PO DAILY@0630 [facility] Lisinopril 10 mg 06/15/23 09:00 Lisinopril 10 Mg Tab PO DAILY [facility] Meclizine HCl 25 mg 06/15/23 07:35 Meclizine 25 Mg Tab PO DAILY PRN Vertigo Metoprolol Succinate 25 mg 06/15/23 09:00 Metoprolol Succinate (Er) 25 Mg Tab.Er.24h PO DAILY [facility] Miscellaneous Information 1 each 06/15/23 06:40 Rx Info: Iv Contrast Was Given 1 Each Misc MISCELLANE 06/17/23 06:40 DAILY PRN Per Protocol Nitroglycerin 0.4 mg 06/15/23 06:33 Nitroglycerin Sl Tabs 0.4 Mg Tab SUBLINGUAL Q5M PRN Chest Pain Nystatin 1 applic 06/15/23 09:00 Nystatin 100,000unit/Gm Cream 30 Gm Tube TOPICAL BID [facility] Protocol Intake and Output 06/14/23 06/15/23 06/15/23 22:59 06:59 14:59 Other: Weight 74.843 kg 06/15/23 05:29 06/15/23 05:29
--- NOTE | 2023-06-15 12:25 | CA ---
Transthoracic Echo Report Name: Radha Restrepo Age: 72 Gender: F : 1950 Exam Date: 06/15/2023 10:24 Exam Location: [place] [facility] Ht (in): 60 Wt (lb): 165 Ordering Physician: Shanna Hubbard Attending/Referring Phys: [id number], Stevie Accounting Representative Jacklyn Dinh [facility] Procedure CPT: Indications: pericardial eff Cardiac Hx: Technical Quality: Fair Contrast 1: Total Dose (mL): Contrast 2: Total Dose (mL): MEASUREMENTS (Male / Female) Normal Values 2D ECHO LV Diastolic Diameter PLAX 3.7 cm 4.2 - 5.9 / 3.9 - 5.3 cm LV Systolic Diameter PLAX 2.5 cm IVS Diastolic Thickness 1.0 cm 0.6 - 1.0 / 0.6 - 0.9 cm LVPW Diastolic Thickness 1.0 cm 0.6 - 1.0 / 0.6 - 0.9 cm LV Relative Wall Thickness 0.6 LVOT Diameter 2.0 cm Ascending Aorta Diameter 3.2 cm M-MODE Aortic Root Diameter MM 2.6 cm LA Systolic Diameter MM 3.3 cm LA Ao Ratio MM 1.3 AV Cusp Separation MM 1.9 cm DOPPLER AV Peak Velocity 160.3 cm/s AV Peak Gradient 10.3 mmHg AV Mean Velocity 117.5 cm/s AV Mean Gradient 6.0 mmHg AV Velocity Time Integral 27.7 cm LVOT Peak Velocity 126.5 cm/s LVOT Peak Gradient 6.4 mmHg LVOT Velocity Time Integral 23.1 cm LVOT Stroke Volume 74.1 cm??? LVOT Stroke Volume Index 43.1 ml/m??? LVOT Cardiac Index 3107.7 cm???/min???m??? AV Area Cont Eq vti 2.7 cm??? AV Area Cont Eq pk 2.5 cm??? Mitral E Point Velocity 51.3 cm/s Mitral A Point Velocity 79.9 cm/s Mitral E to A Ratio 0.6 MV Deceleration Time 198.7 ms LV E' Lateral Velocity 9.8 cm/s Mitral E to LV E' Lateral Ratio 5.2 LV E' Septal Velocity 6.7 cm/s Mitral E to LV E' Septal Ratio 7.7 Right Atrial Pressure 3.0 mmHg FINDINGS Left Ventricle Mildly increased left ventricular wall thickness. Small left ventricular cavity. Normal left ventricular systolic function with no obvious regional wall motion abnormalities. Left ventricular ejection fraction is estimated at 60-65%. Right Ventricle Right ventricle at upper limits of normal. Unable to estimate the right ventricular systolic pressure. Right Atrium Normal right atrial size. Left Atrium Normal left atrial size. Mitral Valve Mitral valve thickened. No mitral regurgitation. Aortic Valve Trileaflet aortic valve. No aortic valve stenosis or regurgitation. Tricuspid Valve Structurally normal tricuspid valve. No tricuspid regurgitation. Pulmonic Valve Structurally normal pulmonic valve. Trace pulmonic regurgitation. Pericardium Minimal pericardial effusion (normal variant). Aorta Normal size aortic root and proximal ascending aorta. CONCLUSIONS Technically difficult study Normal LV systolic function Previewed by: Dr. Farrukh Neil MD (Electronically Signed) Final Date: 15 June 2023 12:24
[2023-06-15 13:16] LABS: Glucose,Whole Blood 113 mg/dL (70-110)
[2023-06-15] MEDS: INSULIN ASPART (NovoLOG) 100 UNIT/ML VIAL SQ SCH ×3 (13:17→22:17)
[2023-06-15] MEDS ORDERED: ONDANSETRON 4 MG/2 ML VIAL IVP PRN (15:35)
--- NOTE | 2023-06-15 15:47 | P.CONS ---
History of Present Illness - Reason for Consult Consult date: 06/15/23 Breast cancer, recent chemo Requesting physician: Kaleb Eddy - Chief Complaint chest pain - History of Present Illness Mrs. Restrepo is a female pt of Dr. Snyder who presented with abnormal right breast screening mammograms. Initial breast imaging in March 2022 reported probably benign finding in right breast and 6 months follow up was recommended. Rt breast mammogram and US in November 2022 revealed 1.8 cm lesion at 10:00 right breast. 12/23/2022 US guided core biopsy of 10:00 lesion was positive for invasive lobular carcinoma, mixed classical and pleomorphic, grade 2/3, [place]+(91-100%),[place]+(91-100%),Her2 negative (1+). Breast MRI and additional right breast biopsies on 01/19/2023, which came back benign. 02/24/23 she underwent lumpectomy and SLN biopsy, pathology revealed grade 2, invasive lobular carcinoma, 2.4 cm 2/2 nodes were positive for macrometastasis, largest 10 mm, positive margins. 03/31/2023 she underwent right mastectomy and ALND, pathology showed residual ILC, 3/4 additional nodes were positive for macrometastasis. 03/12/2023 PET scan was negative for metastatic disease. 1st TC last week with GCSF Pt reporting a few days after chemo she was having nausea, reported that the antiemetics helped, no appetite, had uncontrolled diarrhea no antidiarrheals helped, reports "struggling to breathe" last Thursday. Pt woke from sleeping last night "screaming" from pain in the low back. She came to ER today because pain was in the chest area, pt puts her hand on lower sternum and moves it laterally when describing the pain. Cardiac work up is negative for an acute cardiac event thus far. She denies palpitations, breathing currently is ok. She notes belching that is new for her. No fevers, oral irritation, abd pain, cramping, dysuria, bleeding, or swelling. Review of Systems 10 point ROS is neg except as stated in HPI Past Medical History Past Medical History: Asthma, Cancer, Diabetes Mellitus, Eye Disorder, GERD/Reflux, Hyperlipidemia, Hypertension, Pneumonia, Thyroid Disorder Additional Past Medical History / Comment(s): meniere's disease, fuch's dystrophy bilateral eyes, no current RX for asthma, INSULIN DEPENDENT. Right breast cancer History of Any Multi-Drug Resistant Organisms: None Reported Year Discovered:: approx 1999 MDRO Source:: stomach/ABDOMEN Past Surgical History: Bladder Surgery, Breast Surgery, Heart Catheterization, Hysterectomy, Tonsillectomy Additional Past Surgical History / Comment(s): Breast BIOPSY - RIGHT , colonoscopy, bladder suspension. Cataract surgery, HIATAL HERNIA REPAIR , RT MASTECTOMY Past Anesthesia/Blood Transfusion Reactions: No Reported Reaction Additional Past Anesthesia/Blood Transfusion Reaction / Comm: hx of menieres,VERTIGO Past Psychological History: No Psychological Hx Reported Smoking Status: Never smoker Past Alcohol Use History: None Reported Past Drug Use History: None Reported - Past Family History Father Family Medical History: Diabetes Mellitus Additional Family Medical History / Comment(s): Father of diabetic complications in his early 50s. Mother Family Medical History: Cancer Additional Family Medical History / Comment(s): Mother of breast cancer at the age of 50yrs. Medications and Allergies Home Medications Medication Instructions Recorded Confirmed Type Insulin Glargine,Hum.rec.anlog 55 unit SQ DAILY 04/22/19 06/15/23 History [Lantus Solostar Pen] Insulin Lispro [humaLOG Kwikpen] See Protocol SQ TID-W/MEALS 04/22/19 06/15/23 History lisinopriL [Zestril] 10 mg PO DAILY 04/22/19 06/15/23 History Meclizine [Antivert] 25 mg PO DAILY PRN 06/08/19 06/15/23 History Metoprolol Succinate (ER) [Toprol 25 mg PO DAILY 06/08/19 06/15/23 History XL] Atorvastatin [Lipitor] 80 mg PO DAILY 12/04/20 06/15/23 History Cholecalciferol [Vitamin D3 (25 25 mcg PO BID 12/04/20 06/15/23 History Mcg = 1000 Iu)] Tirzepatide [Mounjaro] 5 mg SQ KILLIAN 12/17/22 06/15/23 History Aspirin 81 mg PO DAILY 02/18/23 06/15/23 History Ibuprofen [Advil] 800 mg PO Q8HR PRN 03/26/23 06/15/23 History Nystatin/Triamcin 1 applic TOPICAL BID #30 gram 04/21/23 06/15/23 Rx [Nystatin-Triamcinolone Cream] LORazepam [Ativan] 0.5 - 1 mg PO Q6H PRN 06/15/23 06/15/23 History Levothyroxine Sodium [Synthroid] 137 mcg PO DAILY 06/15/23 06/15/23 History Ondansetron [Zofran] 4 - 8 mg PO Q4-6H PRN 06/15/23 06/15/23 History Allergies Allergy/AdvReac Type Severity Reaction Status Date / Time acetaminophen [From Tylenol] AdvReac Nausea & Verified 06/15/23 07:06 Vomiting hydrocodone [From [place]] AdvReac Nausea & Verified 06/15/23 07:06 Vomiting Physical Exam Vitals: Vital Signs Temp Pulse Pulse Resp BP Pulse Ox 06/15/23 07:28 82 18 153/63 96 06/15/23 06:52 92 17 172/70 100 06/15/23 05:27 90 06/15/23 05:17 102 H 06/15/23 05:11 99.0 F 102 H 18 183/88 97 Intake and Output 06/14/23 06/15/23 06/15/23 22:59 06:59 14:59 Other: Weight 74.843 kg - Constitutional General appearance: cooperative, no acute distress, obese - EENT Eyes: anicteric sclerae, EOMI ENT: hearing grossly normal - Neck Neck: no lymphadenopathy - Respiratory Respiratory: bilateral: CTA - Cardiovascular Rhythm: regular Heart sounds: normal: S1, S2 Abnormal Heart Sounds: no systolic murmur, no diastolic murmur, no rub, no S3 Gallop, no S4 Gallop, no click, no other leg Peripheral Edema: bilateral: None - Gastrointestinal General gastrointestinal: no absent bowel sounds, no decreased bowel sounds, no distended, no hepatomegaly, no hyperactive bowel sounds, normal bowel sounds, no organomegaly, no rigid, no scaphoid, soft, no splenomegaly, no tenderness, no umbilical hernia, no ventral hernia - Integumentary Integumentary: normal - Neurologic Neurologic: CNII-XII intact - Musculoskeletal Musculoskeletal: generalized weakness, strength equal bilaterally - Psychiatric flat affect Psychiatric: A&O x's 3, intact judgment & insight Results CBC & Chem 7: 06/15/23 05:29 06/15/23 05:29 Labs: Abnormal Lab Results - Last 24 Hours (Table) 06/15/23 06/15/23 Range/Units 05:29 05:29 WBC 2.7 L (3.8-10.6) k/uL Plt Count 110 L (150-450) k/uL Neutrophils # (Manual) 0.70 L (1.3-7.7) k/uL Sodium 133 L (137-145) mmol/L Carbon Dioxide 21 L (22-30) mmol/L Creatinine 0.41 L (0.52-1.04) mg/dL Glucose 143 H (74-99) mg/dL Calcium 7.8 L (8.4-10.2) mg/dL Magnesium 1.5 L (1.6-2.3) mg/dL Total Protein 5.4 L (6.3-8.2) g/dL Albumin 3.1 L (3.5-5.0) g/dL Comments: ECHO report reviewed LVEF 60-65% Chest x-ray: report reviewed CT scan - chest: report reviewed Assessment and Plan (1) Chest pain Current Visit: Yes Status: Acute Priority: High Code(s): R07.9 - CHEST PAIN, UNSPECIFIED SNOMED Code(s): 20586298 (2) Diarrhea Current Visit: Yes Status: Acute Priority: High Code(s): R19.7 - DIARRHEA, UNSPECIFIED SNOMED Code(s): 16031435 (3) Breast cancer Current Visit: Yes Status: Acute Priority: High Code(s): C50.919 - MALIGNANT NEOPLASM OF UNSP SITE OF UNSPECIFIED FEMALE BREAST SNOMED Code(s): 529260493 Plan: Chest pain, SOB -SOB better but, chest pain persists, pt puts hand on epigastric area and moves hand to the left towards flank. Cardiac work up no evidence of ischemia thus f ar, LVEF 60-65%, Cardiology seeing pt. -PPI ordered, antiemetic ordered Stage IB ILC, s/p lumpectomy, mastectomy and ALND -See HPI for whole Hx -Pt started adjuvant chemo last week with taxotere and cytoxan with GCSF support -Diarrhea and MS c/o are most likely 2/2 treatment. -Agree with hydration and supportive medications for symptoms -Cardiology work up in process-pending completion of their work up and recommendations -Pt does not think she wants to complete adjuvant treatment. Options for dose reductions was mentioned but, ultimately pt, will make final decisions regarding treatment after they discuss concerns with primary Oncologist Agree with hydration and supportive medications Attests: I have seen and examined pt, performed H&P, developed impression and plan of care. Discussed with dictator. Agree with documentation, dictated as a scribe.
[2023-06-15] MEDS: PANTOPRAZOLE 40 MG/10 ML VIAL IVP SCH (15:49)
[2023-06-15 16:59] LABS: Glucose,Whole Blood 180 mg/dL (70-110)
[2023-06-16] MEDS: HEPARIN SODIUM,PORCINE 5,000 UNIT/ML 1 ML VIAL SQ SCH ×2 (00:08→08:34)
[2023-06-16] MEDS: LEVOTHYROXINE 137 MCG TAB PO SCH (05:59)
[2023-06-16 06:24] LABS: Glucose,Whole Blood 104 mg/dL (70-110)
[2023-06-16] MEDS: INSULIN ASPART (NovoLOG) 100 UNIT/ML VIAL SQ SCH (06:27)
[2023-06-16 07:50] VITALS: BP 102/53; PULSE 67; RESP 14; TEMP 98.6
[2023-06-16] MEDS: METOPROLOL SUCCINATE (ER) 25 MG TAB.ER.24H PO SCH (08:34)
[2023-06-16] MEDS: CHOLECALCIFEROL 25 MCG (1000 IU) TABLET PO SCH (08:34)
[2023-06-16] MEDS: ATORVASTATIN 80 MG TAB PO SCH (08:34)
[2023-06-16] MEDS: lisinopriL 10 MG TAB PO SCH (08:34)
[2023-06-16] MEDS: ASPIRIN 81 MG PO SCH (08:34)
[2023-06-16] MEDS: PANTOPRAZOLE 40 MG/10 ML VIAL IVP SCH (08:35)
[2023-06-16] MEDS: INSULIN DETEMIR (LEVEMIR) 100 UNIT/ML SYR SQ SCH (08:35)
[2023-06-16] MEDS: TRIAMCINOLONE 0.1% CREAM 80 GM TUBE TOPICAL SCH (08:36)
[2023-06-16] MEDS: NYSTATIN 100,000UNIT/GM CREAM 30 GM TUBE TOPICAL SCH (08:36)
[2023-06-16] MEDS ORDERED: ASPIRIN 325 MG TAB PO SCH (09:00)
--- NOTE | 2023-06-16 10:46 | P.PN ---
Subjective Progress Note Date: 06/16/23 Consult reason: chest pain History of present illness: History of Present Illness: This is a 80-year-old female patient of Dr. Tristin Evans with past medical history of mild nonobstructive coronary artery disease, hypertension, diabetes, dyslipidemia. She was last seen in the office on 02/19/2023 for preop clearance for right breast lumpectomy which occurred in February. 1 month later, patient underwent right-sided mastectomy. Patient apparently started chemotherapy on Thursday. We have been asked to evaluate the patient for chest pain. Patient states that she came into the hospital due to chest pain and back pain in the lower area. It started before she went to bed last night. No pain with deep inspiration. Pain is coming and going. Patient denies shortness of breath. She does have lightheadedness and dizziness. Patient is seen today in the emergency center waiting for a bed on the observation unit. She is status post 1 L of IV fluids and magnesium replacement. EKG sinus rhythm with no acute ST changes. Chest x-ray: Left upper lung zone patchy opacity. Left-sided PICC line. Heart is upper limits of normal. CT of the chest with contrast: S/p right mastectomy. Left PICC line. Mild diffuse bronchial wall thickening may be chronic for the patient. Consider bronchitis or asthma. No CT correlation for the left upper lobe density seen on chest x-ray. Findings likely reflected external artifact. Status post Niesen fundoplication with recurrent small hiatal hernia. WBC 2.7, hemoglobin 12.2, platelet count 110. INR 1.0. Sodium 133, potassium 3.7, CO2 21, BUN 7 creatinine 0.41. Blood sugar 143. Troponin negative x 2. Magnesium 1.5. Home cardiac medications: Aspirin 81 mg daily, atorvastatin 80 mg daily, lisinopril 10 mg daily, Toprol-XL 25 mg daily, also on levothyroxine 137 mcg daily. 06/16 Patient is seen today in follow-up on the observation unit. Patient denies having any chest pain, no shortness of breath, no lightheadedness or dizziness. Blood pressure 102/53, heart rate in the 60s and 80s. Echocardiogram reveals a technically difficult study. Normal LV systolic function. Results reviewed with the patient. Due to patient's cardiac risk factors, discussed need for stress testing and patient given option of having that done at this time while she is hospitalized but patient would prefer to go home and follow-up in the office and have this testing done as an outpatient. Physical examination: Gen: This is a 72-year-old female. She appears to be in no acute distress. VS: reviewed HEENT: Head is atraumatic, normocephalic. Pupils equal, round. Sclerae is anicteric. NECK: Supple. No JVD. . LUNGS: Clear to auscultation. No wheezes or rhonchi. No intercostal retractions. HEART: Regular rate and rhythm. No murmur. ABDOMEN: Soft No tenderness. EXTREMITIES: No pedal edema. No calf tenderness. NEUROLOGICAL: Patient is awake, alert and oriented x3. Assessment: Atypical chest pain, ruled out non-ST elevated [place] History of mild nonobstructive coronary artery disease Hypertension Diabetes Dyslipidemia Right-sided breast cancer status post mastectomy and start chemotherapy on Thursday Plan: Continue patient's home cardiac medications Patient will follow-up with Dr. Tristin Evans in the office in 1 to 2 weeks and outpatient stress testing may be arranged at that time per patient's preference. Patient is cleared from cardiology for discharge. Cardiology will sign off and follow on an as-needed basis. Please reconsult if any new concerns. Nurse practitioner note has been reviewed, I agree with documented findings and plan of care. Patient was seen and examined. Objective - Vital Signs Vital signs: Vital Signs Temp 98.6 F 06/16/23 07:00 Pulse 67 06/16/23 07:00 Resp 14 06/16/23 07:00 BP 102/53 06/16/23 07:00 Pulse Ox 95 06/16/23 07:00 FiO2 Intake & Output 06/15/23 06/16/23 06/16/23 18:59 06:59 18:59 Weight 74.843 kg Other: # Voids 1 - Labs CBC & Chem 7: 06/15/23 05:29 06/15/23 05:29 Labs: Abnormal Lab Results - Last 24 Hours (Table) 06/15/23 06/15/23 Range/Units 13:14 16:57 POC Glucose (mg/dL) 113 H 180 H (70-110) mg/dL
--- NOTE | 2023-06-16 11:40 | P.DS ---
Providers Date of admission: 06/15/23 06:33 Expected date of discharge: 06/16/23 Attending physician: Delta Merlos MD Consults: 06/15/23 06:33 Consult Physician Routine Consulting Provider: Tana Snyder Consult Reason/Comments: weakness, chemo Do you want consulting provider notified?: Yes Consult Physician Urgent Consulting Provider: Narinder Washington Consult Reason/Comments: chest pain Do you want consulting provider notified?: Yes Primary care physician: Bernardo Mao Hospital Course: Discharge Diagnosis: Chest pain, acute coronary event ruled out. Continue aspirin 81 mg daily. Troponins were negative. X-ray showing sinus mechanism. Echocardiogram completed revealing a preserved EF of 60 to 65% with no significant valvular or structural abnormalities reported. Patient cleared from cardiac perspective, recommending follow-up outpatient with surgical device sales representative in 2 weeks. Hypertension, continue antihypertensive medications with lisinopril 10 mg daily metoprolol 25 mg daily. Hyperlipidemia, continue atorvastatin 80 mg daily. Insulin-dependent diabetes mellitus, continue home insulin regimen with 55 units of Lantus daily and lispro sliding scale 3 times daily with meals. Hypothyroidism. Continue daily medication regimen with levothyroxine 137 g daily. Mnire's disease. Continue meclizine 25 mg daily as needed for vertigo Recently diagnosed breast cancer. Bicytopenia, likely secondary to chemotherapeutic agents. Neutropenia, likely secondary to chemotherapeutic agents. Hypomagnesemia. Replaced. Hospital Course: Patient is a very pleasant 72-year-old female with a past medical history of hypertension, hyperlipidemia, insulin-dependent diabetes mellitus, hypothyroidism, Mnire's disease, and recently diagnosed breast cancer status post right mastectomy currently undergoing chemotherapy. She presented to the emergency department with a chief complaint of chest pain/pressure. Patient reported awakening from sleep around 1 AM with sensation of pain/pressure to substernal chest radiating into her left anterior chest. Patient reports just starting her chemotherapy treatment and was unsure if the symptoms are associated. Patient reports her right mastectomy was in March 2023 and had her first chemotherapeutic treatment was Thursday06/08/23 and she states her side effects from this treatment was "the worst thing I've ever experienced in my life." Patient reports for the first 2 days she had chest pressure accompanied by severe shortness of breath, nausea, and back pain. She reports she slowly began to feel better, until this morning around 1 AM when she awoken with the pain/pressure sensation to her midsternal chest. She denies having any headache, lightheadedness, dizziness, changes in vision or hearing, shortness of breath, cough or congestion, or experiencing any numbness/tingling/weakness in her extremities. She denies experiencing palpitations but does report that her heart felt funny.She underwent full evaluation in the emergency department. Vital signs upon arrival show blood pressure hypertensive at 183/88, heart rate 102, respiratory rate 18, temp 99.0F, and SpO2 of 97% on room air. EKG was completed showing sinus tachycardia at 100 bpm with no significant T-wave or ST abnormalities showing no signs of acute ischemia. Chest x-ray completed in radiology report reviewed showing left upper lung opacity with a left-sided PICC line with tip overlying the SVC/right atrial junction and mild cardiomegaly. Labs completed and reviewed. CBC showing bicytopenia with WBC count of 2.7 and platelet count of 110, neutrophils also low at 0.70.. BMP showing mild hyponatremia with sodium of 133 and hypocarbia with bicarbonate of 21. Magnesium low at 1.5. Troponin negative at less than 0.012. Patient was admitted under our services with consultation to cardiology and oncology. Physical exam: Vital signs reviewed and stable. General: Nontoxic, no distress and appears stated age. Derm: Skin warm and dry, normal coloration for ethnicity. Head: Atraumatic, normocephalic and symmetric. Eyes: EOMs intact, no lid lag, and anicteric sclera Mouth: no lip lesions, mucus membranes moist Cardiovascular: regular rate and rhythm with normal S1S2, no murmur, positive posterior tibial pulses bilaterally, and cap refill < 2 seconds. Chest/Lungs: Respirations even, regular, and unlabored on room air. Lungs CTA bilaterally, no rhonchi, no rales, no wheezing, and no accessory muscle usage. Right-sided mastectomy. Abdominal: soft, nontender to palpation, no guarding, no appreciable organomegaly Ext: ROM intact. No gross muscle atrophy, no edema, no contractures. PICC line left upper extremity. Neuro: Speech clear, face symmetrical and CN II-XII grossly intact with no noted focal neuro deficits Psych: Alert and oriented to person, place, time, and situation. Appropriate and pleasant affect. A total of 38 minutes of time were spent preparing this complex discharge summary. Pt was discharged on 06/16/2023 at 11:32 AM. Patient was seen independently by Nurse Practitioner. This document was prepared using [employer] dictation software. Please allow for errors in [facility] while rare they do occur. Jony Sebastian NP rendered care for this patient independently, reviewed the findings and plan as documented in the note above. I did not physically speak with or examine the patient on this date. Patient Condition at Discharge: Stable Plan - Discharge Summary New Discharge Prescriptions: New Pantoprazole [Protonix] 40 mg PO DAILY 90 Days #90 tab Continue lisinopriL [Zestril] 10 mg PO DAILY Insulin Glargine,Hum.rec.anlog [Lantus Solostar Pen] 55 unit SQ DAILY Insulin Lispro [humaLOG Kwikpen] See Protocol SQ TID-W/MEALS Metoprolol Succinate (ER) [Toprol XL] 25 mg PO DAILY Meclizine [Antivert] 25 mg PO DAILY PRN PRN Reason: Vertigo Atorvastatin [Lipitor] 80 mg PO DAILY Tirzepatide [Mounjaro] 5 mg SQ KILLIAN Cholecalciferol [Vitamin D3 (25 Mcg = 1000 Iu)] 25 mcg PO BID Aspirin 81 mg PO DAILY Ibuprofen [Advil] 800 mg PO Q8HR PRN PRN Reason: Pain Nystatin/Triamcin [Nystatin-Triamcinolone Cream] 1 applic TOPICAL BID #30 gram Levothyroxine Sodium [Synthroid] 137 mcg PO DAILY Ondansetron [Zofran] 4 - 8 mg PO Q4-6H PRN PRN Reason: Nausea LORazepam [Ativan] 0.5 - 1 mg PO Q6H PRN PRN Reason: Anxiety Discharge Medication List Insulin Glargine,Hum.rec.anlog [Lantus Solostar Pen] 55 unit SQ DAILY 04/22/19 [History] Insulin Lispro [humaLOG Kwikpen] See Protocol SQ TID-W/MEALS 04/22/19 [History] lisinopriL [Zestril] 10 mg PO DAILY 04/22/19 [History] Meclizine [Antivert] 25 mg PO DAILY PRN 06/08/19 [History] Metoprolol Succinate (ER) [Toprol XL] 25 mg PO DAILY 06/08/19 [History] Atorvastatin [Lipitor] 80 mg PO DAILY 12/04/20 [History] Cholecalciferol [Vitamin D3 (25 Mcg = 1000 Iu)] 25 mcg PO BID 12/04/20 [History] Tirzepatide [Mounjaro] 5 mg SQ KILLIAN 12/17/22 [History] Aspirin 81 mg PO DAILY 02/18/23 [History] Ibuprofen [Advil] 800 mg PO Q8HR PRN 03/26/23 [History] Nystatin/Triamcin [Nystatin-Triamcinolone Cream] 1 applic TOPICAL BID #30 gram 04/21/23 [Rx] LORazepam [Ativan] 0.5 - 1 mg PO Q6H PRN 06/15/23 [History] Levothyroxine Sodium [Synthroid] 137 mcg PO DAILY 06/15/23 [History] Ondansetron [Zofran] 4 - 8 mg PO Q4-6H PRN 06/15/23 [History] Pantoprazole [Protonix] 40 mg PO DAILY 90 Days #90 tab 06/16/23 [Rx] Follow up Appointment(s)/Referral(s): Bernardo Mao DO [Primary Care Provider] - 1-2 days José Miguel Evans MD [STAFF PHYSICIAN] - 2 Weeks Tana Snyder MD [STAFF PHYSICIAN] - 06/30/23 11:00 am Activity/Diet/Wound Care/Special Instructions: Activity: As tolerated. Take breaks as needed. Diet: Heart healthy and carb consistent diet. Avoid salts, or foods with hidden salts such as canned or boxed foods and frozen dinners. Extra salt makes your heart work harder and traps the fluid in your body for longer. Special Instructions: Take all of your medications as directed and remember to keep all of your doctor's appointments and follow-up as needed. Thank you for allowing us to participate in your care, it was truly a pleasure having you for our patient!!! Discharge Disposition: HOME SELF-CARE
--- NOTE | 2023-06-16 14:46 | P.PN ---
Subjective Progress Note Date: 06/16/23 Principal diagnosis: Chest pain. Status post adjuvant chemotherapy for breast cancer In follow-up today patient has no complaints. She is denying any chest pain, no other pain, shortness of breath. Patient is feeling that she no longer wants treatment. She wants the PICC line pulled. Objective - Vital Signs Vital signs: Vital Signs Temp 98.6 F 06/16/23 07:00 Pulse 67 06/16/23 08:00 Resp 14 06/16/23 08:00 BP 102/53 06/16/23 07:00 Pulse Ox 95 06/16/23 07:00 FiO2 Intake & Output 06/15/23 06/16/23 06/16/23 18:59 06:59 18:59 Weight 74.843 kg Other: Voiding Method Toilet # Voids 1 - Constitutional General appearance: Present: cooperative, no acute distress - EENT Eyes: Present: anicteric sclerae, EOMI ENT: Present: hearing grossly normal - Respiratory Details: Respirations even and unlabored at rest - Peripheral edema leg Peripheral Edema: bilateral: None - Neurologic Neurologic: Present: CNII-XII intact - Musculoskeletal Musculoskeletal: Present: strength equal bilaterally - Psychiatric Psychiatric: Present: A&O x's 3, appropriate affect, intact judgment & insight - Labs CBC & Chem 7: 06/15/23 05:29 06/15/23 05:29 Labs: Abnormal Lab Results - Last 24 Hours (Table) 06/15/23 Range/Units 16:57 POC Glucose (mg/dL) 180 H (70-110) mg/dL Assessment and Plan (1) Chest pain Status: Acute Priority: High Code(s): R07.9 - CHEST PAIN, UNSPECIFIED SNOMED Code(s): 58905477 (2) Diarrhea Status: Acute Priority: High Code(s): R19.7 - DIARRHEA, UNSPECIFIED SNOMED Code(s): 60779643 (3) Breast cancer Status: Acute Priority: High Code(s): C50.919 - MALIGNANT NEOPLASM OF UNSP SITE OF UNSPECIFIED FEMALE BREAST SNOMED Code(s): 405599906 Plan: Chest pain, SOB -Resolved -Cardiac work up no evidence of ischemia, LVEF 60-65%, Cardiology planning for stress test outpatient, per patient request. -PPI ordered, antiemetic ordered Stage IB ILC, s/p lumpectomy, mastectomy and ALND -Pt started adjuvant chemo last week with taxotere and cytoxan with GCSF support -Diarrhea and MS c/o are most likely 2/2 treatment. Patient had no complaints of the same today. -Patient received hydration and supportive medications for symptoms and she seems to be doing much better now. -Pt States today that she does not want to do chemotherapy again. She is asking for the PICC line to be pulled. She does not want to wait until having a disc ussion with Dr. Snyder so, she will go to the office and have line pulled. -Pt and still want to follow-up with Dr. Snyder. That appointment is scheduled. Attests: I have seen and examined pt, performed H&P, developed impression and plan of care. Discussed with dictator. Agree with documentation, dictated as a scribe.
[2023-06-16 17:06] LABS: Chol/HDL Ratio 1.67 Ratio; LDL Cholesterol,Calculated 23.1 mg/dL (0.0-131.0)
== END 2023-06-16 12:43 | disposition home or self-care (01) ==
LOC: EC 05:07 → 6NMEDSUR 06:33
PROVIDERS: ADMIT Internal Medicine; ATTEND Internal Medicine
DX: R07.89 Other chest pain (principal); R19.7 Diarrhea, unspecified; C50.911 Malignant neoplasm of unspecified site of right female breast; I25.10 Atherosclerotic heart disease of native coronary artery without angina pectoris; E11.9 Type 2 diabetes mellitus without complications; K21.9 Gastro-esophageal reflux disease without esophagitis; E78.5 Hyperlipidemia, unspecified; I10 Essential (primary) hypertension; J45.909 Unspecified asthma, uncomplicated; E03.9 Hypothyroidism, unspecified; D70.9 Neutropenia, unspecified; E83.42 Hypomagnesemia; H81.09 Meniere's disease, unspecified ear; Z90.11 Acquired absence of right breast and nipple; Z79.4 Long term (current) use of insulin; Z79.890 Hormone replacement therapy; Z79.82 Long term (current) use of aspirin; Z79.899 Other long term (current) drug therapy; Z88.5 Allergy status to narcotic agent; Z88.6 Allergy status to analgesic agent
CPT/HCPCS: 96372 ×2; 96361; 96365; 96366; 99285; 36415; 93005; 93306; 80061; 80053; 83735; 84484; 85025; 85610; 85730; 83036; 71046; 71260; G0378 ×2; J1644; J3475; Q9967

== ENCOUNTER → 2023-07-16 | Outpatient (CLI) | payer MEDICARE ==
--- NOTE | 2023-07-16 10:58 | P.PN ---
Subjective Progress Note Date: 07/16/23 02-06-23 the patient's radiographs were sent to [place] for review. It appears that the radiologist there did not feel there was a lesion to biopsy. I discussed this with the patient. At this time she is declined any further attempted MRI guided biopsy. She will agree to surgical intervention on with a needle localization of 2 areas in the right breast that at the of the biopsy-proven malignancy as well as the area at 7:00. She will also have a sentinel node injection and sentinel node biopsy. Addendum entered and electronically signed by Lidia Nicholas MD 02/03/23 11:19: [place] [id number]. The recommendation after review of the MRI was that she have an MRI guided biopsy of the 7:00 lesion in the right breast. The patient was called she is aware of this and this is being scheduled. This will be done at [place]. Her surgical date may be changed based on awaiting the results of the biopsy. Original Note: Subjective Progress Note Date: 01/30/23 Right breast invasive lobular carcinoma/additional radiographic abnormalities to be evaluated abnormal right breast ultrasound Radha is a 72 year old white female seen in consultation for Dr. Mao in April 2022 regarding a radiographic abnormality in the right breast. She had a bilateral mammogram on 04-11-22 which led to a right breast ultrasound on 04-14-22. This revealed a 6 by 5 mm probable debris filled cyst. It was BIRAD 3 and repeat right breast mammogram and ultrasound in 6 months was recommended. She did not feel anything of concern prior to the mammogram. She had had a right breast needle biopsy in the past which was benign. She also had a left breast open biopsy which was benign. She was not complaining of any nipple discharge or skin changes. She had not had any recent trauma or infection in the breast. She did complain of a rash on the lateral aspect of her right breast after the mammogram. She was told this was probably shingles. This has subsequently resolved. The patient on underwent a diagnostic repeat right breast mammogram and ultrasound. The mammogram revealed increasing areas of focal asymmetry in the right breast mid duct. The ultrasound revealed 3 areas of concern. The first was at 10:00 this was a 1.3 cm lesion for which tissue sampling was recommended biopsy of this revealed invasive lobular carcinoma grade 2/3 ER/HI positive HER-2/tavia negative Area at 7:00 was a dense island of tissue and this area was not biopsied but will now be biopsied Area at 9:00 axillary tail 1.5 cm probable lipoma. Which biopsy is now recommended secondary to the finding above Additionally the patient had a second area on her mammogram which is anterior to the lesion biopsied at 10:00 which did not show on ultrasound and it is recommended that this area be biopsied via 3-D stereo biopsy 10:00 lesion stero biopsy: cancelled because the tissue too thin; must be done in the OR ultrasound biopsy at 7:00 ( called 8:00 benign) Ultrasound biopsy at 9:00 (lipoma) MRI: 01-29-23 left breast no lesions of concern right breast: suspicious at 7 OClock, + at 10:00, oncotype: 6 07-16-23 The patient underwent a right breast lumpectomy on 02-24-2023. This had positive margins. Therefore she opted for a right breast mastectomy and axillary node resection. Pathology on this revealed all margins negative. There was a residual 1 month millimeter focus of tumor. 4 additional lymph nodes were removed and 3 were positive for tumor. She has subsequently followed with medical oncology and radiation oncology. Note Dr. Snyder 05-11-2023, patient recommended for adjuvant chemotherapy; she had poor tolerance of the chemotherapy after 1 cycle which required hospitalization. She was subsequently started on letrozole. Benefit from adjuvant endocrine therapy likely with combination of AI and abemaciclib Radiation oncology 07-06-2023 reviewed was to undergo CT simulation on 07-06-2023 After the first course of chemotherapy she did lose all of her hair. She also became quite ill and is not going to receive any further chemotherapy. She is scheduled to start radiation therapy next week. She is not complaining of any new lumps masses or nodules of concern. Her last mammogram was 12-15-22. CC: caffeine: 1 cup/day nicotine: none chocolate: weekly BCP: in her 20's for 1 years Family History: mother: of breast cancer at 50 dx. in 40's Hormonal History: menarche: 15 breast fed: no, first born at 22 menopause: hysterectomy in 40's took one ovary hormones: none Surgical history: left breast biopsy benign hiatal hernia tonsillectomy hysterectomy took one ovary for bleeding, done in her 40's heart cath bladder suspenscion Medical history: meniers disease HTN beta ismael for her heart daibetic high cholesterol Social History: nicotine: none alcohol: none drugs: none - Constitutional Constitutional: Reports sweats - EENT Eyes: denies blurred vision, denies pain Ears: bilateral: decreased hearing, deny: tinnitus Ears, nose, mouth and throat: Denies headache, Denies sore throat - Breasts Breasts: bilateral: as per HPI - Cardiovascular Cardiovascular: Reports as per HPI - Respiratory Respiratory: Denies cough, - Gastrointestinal Comment: IBS ? Gastrointestinal: Reports as per HPI - Genitourinary (Female) Genitourinary: Denies dysuria, Denies hematuria - Menstruation Menstruation: Reports post hysterectomy - Musculoskeletal Musculoskeletal: Reports myalgias - Integumentary Integumentary: Denies pruritus, Denies rash - Neurological Neurological: Denies numbness, Denies weakness - Psychiatric Psychiatric: Denies anxiety, Denies depression - Endocrine Comment: diabetic Endocrine: Reports fatigue - Hematologic/Lymphatic Comment: takes baby aspirin Hematologic/Lymphatic: Reports as per HPI - Allergic/Immunologic Allergic/Immunologic: Reports seasonal allergies Past Medical History Past Medical History: Asthma, Diabetes Mellitus, Eye Disorder, GERD/Reflux, Hyperlipidemia, Hypertension, Pneumonia, Thyroid Disorder Additional Past Medical History / Comment(s): meniere's disease, fuch's dystrophy bilateral eyes, no current RX for asthma, INSULIN DEPENDENT, History of Any Multi-Drug Resistant Organisms: MRSA Date of last positivie culture/infection: approx 1999 MDRO Source:: stomach/ABDOMEN Past Surgical History: Bladder Surgery, Breast Surgery, Heart Catheterization, Hysterectomy, Tonsillectomy Additional Past Surgical History / Comment(s): Breast BIOPSY - RIGHT , colonoscopy, bladder suspension. Cataract surgery, HIATAL HERNIA REPAIR Past Anesthesia/Blood Transfusion Reactions: No Reported Reaction, Motion Sickness Additional Past Anesthesia/Blood Transfusion Reaction / Comment(s): hx of menieres,VERTIGO Past Psychological History: No Psychological Hx Reported Additional Psychological History / Comment(s): . Smoking Status: Never smoker Past Alcohol Use History: None Reported Past Drug Use History: None Reported - Past Family History Father Family Medical History: Diabetes Mellitus Additional Family Medical History / Comment(s): Father of diabetic complications in his early 50s. Mother Family Medical History: Cancer Additional Family Medical History / Comment(s): Mother of breast cancer at the age of 50yrs. Medications and Allergies Home Medications Medication Instructions Recorded Confirmed Type Insulin Glargine,Hum.rec.anlog 55 unit SQ QAM 04/22/19 05/09/22 History [Lantus Solostar Pen] Insulin Lispro [humaLOG Kwikpen] 0 unit SQ TID-W/MEALS 04/22/19 05/09/22 History lisinopriL [Zestril] 10 mg PO QAM 04/22/19 05/09/22 History Aspirin 81 mg PO DAILY #30 chew 04/23/19 05/09/22 Rx Levothyroxine Sodium [Synthroid] 150 mcg PO DAILY 06/08/19 05/09/22 History Meclizine [Antivert] 25 mg PO DAILY PRN 06/08/19 05/09/22 History Metoprolol Succinate (ER) [Toprol 25 mg PO QAM 06/08/19 05/09/22 History XL] Acetaminophen Tab [Tylenol] 650 mg PO Q6H PRN 12/04/20 05/09/22 History Atorvastatin [Lipitor] 80 mg PO DAILY 12/04/20 05/09/22 History Cholecalciferol [Vitamin D3 (25 50 mcg PO DAILY 12/04/20 05/09/22 History Mcg = 1000 Iu)] Dulaglutide [Trulicity] 3 mg SQ KILLIAN 05/09/22 05/09/22 History Allergies Allergy/AdvReac Type Severity Reaction Status Date / Time No Known Allergies Allergy Verified 05/09/22 11:49 Objective - Constitutional General appearance: Present: cooperative - EENT ENT: Present: hearing grossly normal - Neck Neck: Present: normal ROM - Respiratory Respiratory: bilateral: CTA - Cardiovascular Heart sounds: normal: S1, S2 - Gastrointestinal General gastrointestinal: Present: soft - Integumentary Integumentary: Present: normal turgor - Musculoskeletal Musculoskeletal: Present: gait normal - Psychiatric Psychiatric: Present: A&O x's 3, appropriate affect, intact judgment & insight - Additional findings Additional findings: Breast examination: Inspection: Right chest wall incision clean and dry well-healed Left breast grade 3 ptosis Palpation: Right chest wall: No dominant masses or nodules of concern Right axilla: No adenopathy of concern Left breast: Multi positional exam no dominant masses or nodules of concern Left axilla: No adenopathy of concern Assessment and Plan Assessment: Impression: Right breast mastectomy secondary to a stage Ib invasive lobular carcinoma/1 cycle of adjuvant chemotherapy which was not tolerated therefore this was continued Patient presently on letrozole Patient starting radiation therapy next week T2 N2a M0 G2 tumor this is ER/HI positive HER2 negative Plan: Follow-up with medical oncology Follow radiation oncology Follow-up here in 4 months CC: Dr. Mao
[2023-07-16 12:11] VITALS: BP 173/75; PULSE 94; RESP 17; TEMP 98.3
== END ==
LOC: WWCWWP 09:41
PROVIDERS: ATTEND Surgery
DX: C50.911 Malignant neoplasm of unspecified site of right female breast (principal); E11.9 Type 2 diabetes mellitus without complications; E78.00 Pure hypercholesterolemia, unspecified; I10 Essential (primary) hypertension; J45.909 Unspecified asthma, uncomplicated; K21.9 Gastro-esophageal reflux disease without esophagitis; N64.89 Other specified disorders of breast; Z17.0 Estrogen receptor positive status [ER+]; Z79.4 Long term (current) use of insulin; Z79.890 Hormone replacement therapy; Z80.3 Family history of malignant neoplasm of breast; Z90.11 Acquired absence of right breast and nipple; Z90.710 Acquired absence of both cervix and uterus; Z98.890 Other specified postprocedural states; Z87.01 Personal history of pneumonia (recurrent); Z79.85 Long-term (current) use of injectable non-insulin antidiabetic drugs; Z79.899 Other long term (current) drug therapy; Z79.82 Long term (current) use of aspirin; Z88.1 Allergy status to other antibiotic agents; Z88.5 Allergy status to narcotic agent

== ENCOUNTER → 2023-11-23 | Outpatient (CLI) | payer MEDICARE ==
[2023-11-23 12:10] VITALS: BP 132/79; PULSE 82; RESP 17; TEMP 98.3
--- NOTE | 2023-11-23 12:23 | P.PN ---
Subjective Progress Note Date: 11/23/23 Principal diagnosis: right breast stage [id number] ER+Pr+Her2- invasive lobular cancer, 2022 73-year-old female with a history of T2 N2 M0 invasive lobular carcinoma of the right breast. This was ER/NE positive and HER2 negative. She underwent a lumpectomy on 02-24-23 and secondary to multiple positive margins she proceeded with a right mastectomy on 03-31-23 6 lymph nodes were removed in total with 4 being positive for disease. She had 1 cycle of adjuvant chemotherapy and discontinued this secondary to poor tolerance. She underwent postmastectomy radiation to the chest wall and at risk lymphatics to 50 cGy and finished this on 08-26-2023. On letrozole and Verzenio, she is complaining of a sore on her tongue and is wondering if this is related to the medication it does not hurt At this time with no complaints of any lumps masses or nodules of concern. She is interested in a breast prosthesis CC: caffeine: 1 cup/day nicotine: none chocolate: weekly BCP: in her 20's for 1 years Family History: mother: of breast cancer at 50 dx. in 40's Hormonal History: menarche: 15 breast fed: no, first born at 22 menopause: hysterectomy in 40's took one ovary hormones: none Surgical history: left breast biopsy benign hiatal hernia tonsillectomy hysterectomy took one ovary for bleeding, done in her 40's heart cath bladder suspenscion Right Breast mastectomy with axillary node resection Medical history: meniers disease HTN beta ismael for her heart daibetic high cholesterol Social History: nicotine: none alcohol: none drugs: none - Constitutional Constitutional: Reports sweats - EENT Eyes: denies blurred vision, denies pain Ears: bilateral: decreased hearing, deny: tinnitus Ears, nose, mouth and throat: Denies headache, Denies sore throat - Breasts Breasts: bilateral: as per HPI - Cardiovascular Cardiovascular: Reports as per HPI - Respiratory Respiratory: Denies cough, - Gastrointestinal Comment: IBS ? Gastrointestinal: Reports as per HPI - Genitourinary (Female) Genitourinary: Denies dysuria, Denies hematuria - Menstruation Menstruation: Reports post hysterectomy - Musculoskeletal Musculoskeletal: Reports myalgias - Integumentary Integumentary: Denies pruritus, Denies rash - Neurological Neurological: Denies numbness, Denies weakness - Psychiatric Psychiatric: Denies anxiety, Denies depression - Endocrine Comment: diabetic Endocrine: Reports fatigue - Hematologic/Lymphatic Comment: takes baby aspirin Hematologic/Lymphatic: Reports as per HPI - Allergic/Immunologic Allergic/Immunologic: Reports seasonal allergies Past Medical History Past Medical History: Asthma, Diabetes Mellitus, Eye Disorder, GERD/Reflux, Hyperlipidemia, Hypertension, Pneumonia, Thyroid Disorder Additional Past Medical History / Comment(s): meniere's disease, fuch's dystrophy bilateral eyes, no current RX for asthma, INSULIN DEPENDENT, History of Any Multi-Drug Resistant Organisms: MRSA Date of last positivie culture/infection: approx 1999 MDRO Source:: stomach/ABDOMEN Past Surgical History: Bladder Surgery, Breast Surgery, Heart Catheterization, Hysterectomy, Tonsillectomy Additional Past Surgical History / Comment(s): Breast BIOPSY - RIGHT , colonoscopy, bladder suspension. Cataract surgery, HIATAL HERNIA REPAIR Past Anesthesia/Blood Transfusion Reactions: No Reported Reaction, Motion Sickness Additional Past Anesthesia/Blood Transfusion Reaction / Comment(s): hx of menieres,VERTIGO Past Psychological History: No Psychological Hx Reported Additional Psychological History / Comment(s): . Smoking Status: Never smoker Past Alcohol Use History: None Reported Past Drug Use History: None Reported - Past Family History Father Family Medical History: Diabetes Mellitus Additional Family Medical History / Comment(s): Father of diabetic complications in his early 50s. Mother Family Medical History: Cancer Additional Family Medical History / Comment(s): Mother of breast cancer at the age of 50yrs. Medications and Allergies Home Medications Medication Instructions Recorded Confirmed Type Insulin Glargine,Hum.rec.anlog 55 unit SQ QAM 04/22/19 05/09/22 History [Lantus Solostar Pen] Insulin Lispro [humaLOG Kwikpen] 0 unit SQ TID-W/MEALS 04/22/19 05/09/22 History lisinopriL [Zestril] 10 mg PO QAM 04/22/19 05/09/22 History Aspirin 81 mg PO DAILY #30 chew 04/23/19 05/09/22 Rx Levothyroxine Sodium [Synthroid] 150 mcg PO DAILY 06/08/19 05/09/22 History Meclizine [Antivert] 25 mg PO DAILY PRN 06/08/19 05/09/22 History Metoprolol Succinate (ER) [Toprol 25 mg PO QAM 06/08/19 05/09/22 History XL] Acetaminophen Tab [Tylenol] 650 mg PO Q6H PRN 12/04/20 05/09/22 History Atorvastatin [Lipitor] 80 mg PO DAILY 12/04/20 05/09/22 History Cholecalciferol [Vitamin D3 (25 50 mcg PO DAILY 12/04/20 05/09/22 History Mcg = 1000 Iu)] Dulaglutide [Trulicity] 3 mg SQ KILLIAN 05/09/22 05/09/22 History Allergies Allergy/AdvReac Type Severity Reaction Status Date / Time No Known Allergies Allergy Verified 05/09/22 11:49 Objective - Vital Signs Vital signs: Intake & Output 11/22/23 11/23/23 11/23/23 18:59 06:59 18:59 Weight 76.657 kg - Constitutional General appearance: Present: cooperative - EENT Eyes: Present: EOMI ENT: Present: hearing grossly normal - Neck Neck: Present: normal ROM - Respiratory Respiratory: bilateral: CTA - Cardiovascular Rhythm: regular Heart sounds: normal: S1, S2 - Integumentary Integumentary Comment(s): excoriation of the lateral aspect of the left side of her tongue Integumentary: Present: normal turgor - Musculoskeletal Musculoskeletal: Present: gait normal - Psychiatric Psychiatric: Present: A&O x's 3, appropriate affect, intact judgment & insight - Additional findings Additional findings: Breast examination: Inspection: Right chest wall incision clean and dry well-healed Left breast grade 3 ptosis Palpation: Right chest wall: No dominant masses or nodules of concern Right axilla: No adenopathy of concern Left breast: Multi positional exam no dominant masses or nodules of concern Left axilla: No adenopathy of concern Assessment and Plan Assessment: Impression: Right breast mastectomy secondary to a stage Ib invasive lobular carcinoma/1 cycle of adjuvant chemotherapy which was not tolerated therefore this was not continued Patient presently on letrozole radiation therapy T2 N2a M0 G2 tumor this is ER/NE positive HER2 negative Plan: Follow-up with medical oncology, to discuss possible side effects of medication Follow radiation oncology Follow-up here in 4 months CC: Dr. Mao
== END ==
LOC: WWCWWP 11:37
PROVIDERS: ATTEND Surgery
DX: C50.911 Malignant neoplasm of unspecified site of right female breast (principal); K13.79 Other lesions of oral mucosa; Z17.0 Estrogen receptor positive status [ER+]; Z80.3 Family history of malignant neoplasm of breast; Z88.1 Allergy status to other antibiotic agents; Z88.5 Allergy status to narcotic agent

== ENCOUNTER → 2023-11-24 | Outpatient (CLI) | payer MEDICARE ==
--- NOTE | 2023-11-24 13:43 | BD ---
EXAMINATION TYPE: Axial Bone Density DATE OF EXAM: 11/24/2023 CLINICAL HISTORY: 73 years old Female. ICD-10 CODE: C50.411 Cancer of breast Height: 58.5 in Weight: 167 lbs FRAX RISK QUESTIONS: Secondary Osteoporosis: 3. Menopause before 45: partial hysterectomy age 42 RISK FACTORS MEDICATIONS: Thyroid Medications: yes Which medication: Levothyroxine How Lon+ years EXAM MEASUREMENTS: Bone mineral densitometry was performed using the [employer] System. Bone mineral density as measured about the Lumbar spine is: ----- L1-L4(G/cm2): 1.026 T Score Values are as follows: ----- L1: -1.1 ----- L2: -1.8 ----- L3: -0.3 ----- L4: -2.0 ----- L1-L4: -1.3 Z Score Values are as follows: ----- L1: 0.2 ----- L2: -0.5 ----- L3: 1.1 ----- L4: -0.7 ----- L1-L4: 0.0 Bone mineral density baseline Bone mineral density about the R hip (g/cm2): 0.896 Bone mineral density about the L hip (g/cm2): 0.859 T Score values are as follows: -----R Neck: -2.5 -----L Neck: -2.0 -----R Total: -0.9 -----L Total: -1.2 Z Score values are as follows: -----R Neck: -1.0 -----L Neck: -0.5 -----R Total: 0.4 -----L Total: 0.1 Bone mineral density baseline FRAX%s: The graph provided illustrates a 14.1% chance for a major osteoporotic fx and a 3.6% chance f or the hips probability for fx in 10 years time. IMPRESSION: Osteoporosis (T Score less than -2.5). There is increased fracture risk and therapy is usually indicated based on age. Re-Screen 1-2 years. NOTE: T-SCORE=SD OF THE YOUNG ADULT MEAN.
== END | disposition home or self-care (01) ==
LOC: RADBDWWP 11:14
PROVIDERS: ATTEND Internal Medicine Hematology & Oncology
DX: C50.411 Malignant neoplasm of upper-outer quadrant of right female breast (principal); M81.0 Age-related osteoporosis without current pathological fracture; M85.89 Other specified disorders of bone density and structure, multiple sites; F41.9 Anxiety disorder, unspecified; E11.9 Type 2 diabetes mellitus without complications; E78.5 Hyperlipidemia, unspecified; I10 Essential (primary) hypertension; E03.9 Hypothyroidism, unspecified; Z71.3 Dietary counseling and surveillance
CPT/HCPCS: 77080

== ENCOUNTER → 2023-12-16 | Outpatient (CLI) | payer MEDICARE ==
--- NOTE | 2023-12-16 11:17 | MM ---
Reason for Exam: Hx of breast cancer, mastectomy. Patient History: Menarche at age 15. First Full-Term at age 21. Right ovary removed at age 42. Hysterectomy at age 42. Breast cancer, right, age 72. Breast cancer, right, age 72. 03/31/2023, Mastectomy on the Right side. 02/24/2023, Lumpectomy on the Right side. 02/24/2023, Malignant MG pre op needle loc RT on the right side. 01/19/2023, US biopsy breast add'l VAD RT on the Right side. 01/19/2023, Benign US biopsy breast VAD RT on the right side. 12/23/2022, Malignant US biopsy breast VAD RT on the right side. 01/19/2023, MG discontinued stereo core RT on the right side. Mother had breast cancer, age 45. Prior Study Comparison: 12/23/2022 Right MG diagnostic mammo RT wo CAD, [facility]. 01/19/2023 Right MG diagnostic mammo RT wo CAD, [facility]. Tissue Density: Left: The breasts are heterogeneously dense, which may obscure small masses. Findings: Analyzed By CAD. Chronic nodularity left breast dating back to 2019. No new masses seen. No distortion or suspicious microcalcifications. Overall Assessment: Benign, BI-RAD 2 Management: Diagnostic Mammogram of the left breast in 1 year. . Results were given to the patient verbally at the time of exam. Patient should continue monthly self-breast exams. A clinical breast exam by your physician is recommended on an annual basis. This exam should not preclude additional follow-up of suspicious palpable abnormalities. Note on Yessica scores and lifetime risk: 1. A Yessica score greater than 3% is considered moderate risk. If this is the case, consider specialist referral to assess eligibility for a risk reducing agent. 2. If overall lifetime risk for the development of breast cancer is 20% or higher, the patient may qualify for future screening with alternating mammogram and breast MRI. Electronically signed and approved by: Marcelo Ramey M.D. Radiologis
== END | disposition home or self-care (01) ==
LOC: RADMAMWWP 10:37
PROVIDERS: ATTEND Surgery
DX: R92.332 Mammographic heterogeneous density, left breast (principal); R92.8 Other abnormal and inconclusive findings on diagnostic imaging of breast; Z85.3 Personal history of malignant neoplasm of breast; Z80.3 Family history of malignant neoplasm of breast; Z90.721 Acquired absence of ovaries, unilateral
CPT/HCPCS: 77065; G0279; 77061

== ENCOUNTER → 2024-03-28 | Outpatient (CLI) | payer MEDICARE ==
--- NOTE | 2024-03-28 16:33 | US ---
EXAMINATION TYPE: US carotid duplex BILAT DATE OF EXAM: 03/28/2024 COMPARISON: NONE CLINICAL INDICATION: Female, 73 years old with history of Z86.79 PERSONAL HISTORY OF OTHER DISEASES; h/o stenosis per order, no US here, no symptoms, no h/o stroke Additional History: .... TECHNIQUE: Grayscale, color Doppler and spectral Doppler evaluation of the bilateral carotid systems and vertebral arteries.Indirect Doppler criteria was utilized. FINDINGS: EXAM MEASUREMENTS: RIGHT: Peak Systolic Velocity (PSV) cm/sec ----- Right CCA: 78.1 ----- Right ICA: 75.6 ----- Right ECA: 88.2 ICA/CCA ratio: 1.0 RIGHT: End Diastole cm/sec ----- Right CCA: 14.4 ----- Right ICA: 17.0 ----- Right ECA: 0.0 LEFT: Peak Systolic Velocity (PSV) cm/sec ----- Left CCA: 86.6 ----- Left ICA: 88.1 ----- Left ECA: 69.0 ICA/CCA ratio: 1.0 LEFT: End Diastole cm/sec ----- Left CCA: 11.4 ----- Left ICA: 20.0 ----- Left ECA: 2.3 VERTEBRALS (direction of flow): Right Vertebral: Antegrade Left Vertebral: Antegrade Rhythm: Normal VERIFY REP NOTES: Mild heterogeneous plaque with no significant stenosis seen IMPRESSION: Mild plaque without hemodynamically significant stenosis. Right: Left: Criteria for Assigning % of Stenosis / Diameter reduction (Estimation based on the indirect measurements of the internal carotid artery velocities (ICA PSV). 1. Normal (no stenosis)=ICA PSV < 125 cm/s: ratio < 2.0: ICA EDV<40 cm/s. 2. Less than 50% stenosis=ICA PSV < 125 cm/s: ratio < 2.0: ICA EDV<40 cm/s. 3. 50 to 69% stenosis=ICA PSV of 125 to 230 cm/s: ration 2.0 ? 4.0: ICA EDV 40-100 cm/s. 4. Greater than 70% stenosis to near occlusion= ICA PSV > 230 cm/s: ratio > 4.0: ICA EDV > 100 cm/s. 5. Near occlusion= ICA PSV velocities may be low or undetectable: variable ratio and ICA EDV. 6. Total occlusion=unable to detect flow. [facility], , 03/28/2024 4:31 PM
== END | disposition home or self-care (01) ==
LOC: RADUSWWP 14:38
PROVIDERS: ATTEND Internal Medicine
DX: I70.90 Unspecified atherosclerosis (principal); Z86.79 Personal history of other diseases of the circulatory system
CPT/HCPCS: 93880

== ENCOUNTER → 2024-12-16 | Outpatient (CLI) | payer MEDICARE ==
--- NOTE | 2024-12-16 11:21 | MM ---
Reason for Exam: Screening (asymptomatic). Last screening mammogram was performed 12 month(s) ago. Patient History: Menarche at age 15. First Full-Term at age 21. Right ovary removed at age 42. Hysterectomy at age 42. Breast cancer, right, age 72. Breast cancer, right, age 72. 03/31/2023, Mastectomy on the Right side. 02/24/2023, Lumpectomy on the Right side. 02/24/2023, Malignant MG pre op needle loc RT on the right side. 01/19/2023, US biopsy breast add'l VAD RT on the Right side. 01/19/2023, Benign US biopsy breast VAD RT on the right side. 12/23/2022, Malignant US biopsy breast VAD RT on the right side. 01/19/2023, MG discontinued stereo core RT on the right side. Mother had breast cancer, age 45. Prior Study Comparison: 12/23/2022 Right MG diagnostic mammo RT wo CAD, [facility]. 01/19/2023 Right MG diagnostic mammo RT wo CAD, [facility]. 12/16/2023 Left MG 3D diag mammo w/cad LT, [facility]. Tissue Density: Left: There are scattered areas of fibroglandular density. Findings: Left breast biopsy clip. Right breast: There is no suspicious group of microcalcifications or new suspicious mass. Left breast: There is no suspicious group of microcalcifications or new suspicious mass. Overall Assessment: Negative, BI-RAD 1 Management: Screening Mammogram of both breasts in [address] [facility] will attempt to contact patient to return for supplemental views and ultrasound if indicated. Patient should continue monthly self-breast exams. A clinical breast exam by your physician is recommended on an annual basis. This exam should not preclude additional follow-up of suspicious palpable abnormalities. Note on Yessica scores and lifetime risk: 1. A Yessica score greater than 3% is considered moderate risk. If this is the case, consider specialist referral to assess eligibility for a risk reducing agent. 2. If overall lifetime risk for the development of breast cancer is 20% or higher, the patient may qualify for future screening with alternating mammogram and breast MRI. [facility], , 12/16/2024 11:18 AM. Electronically signed and approved by: London Bustos DO
== END | disposition home or self-care (01) ==
LOC: RADMAMWWP 10:37
PROVIDERS: ATTEND Internal Medicine Hematology & Oncology
DX: Z12.31 Encounter for screening mammogram for malignant neoplasm of breast (principal); R92.322 Mammographic fibroglandular density, left breast; Z80.3 Family history of malignant neoplasm of breast; Z85.3 Personal history of malignant neoplasm of breast
CPT/HCPCS: 77067